=== PATIENT | male | born 1990 | race Caucasian/White ===

== ENCOUNTER → 2020-08-11 07:43 | Outpatient (CLI) | payer OTHER, SELFPAY ==
--- NOTE | ~2020-08-11 | MR_ITS ---
EXAMINATION: MR lumbar spine wo con DATE: 08/11/2020 08:20 INDICATION: Back pain radiating to both legs TECHNIQUE: Magnetic resonance imaging (MRI) of the lumbar spine was performed without intravenous con trast. Sequences included sagittal T2-weighted FSE, sagittal T2-weighted FS FSE, sagittal T1-weighted FSE, and axial T2-weighted FSE. COMPARISON: None FINDINGS: Alignment is normal. Vertebral body heights are normal. Normal marrow signal. Disc heights and signa l are normal. The conus medullaris terminates at T12. There is normal signal in the caudal spinal cor d. Paravertebral soft tissues are unremarkable. The following disc levels are specifically discussed: T12-L1: Disc is minimally bulging. There is mild bilateral facet joint osteoarthritis. There is no ne ural foraminal stenosis. There is no central canal stenosis. L1-L2: Disc is mildly bulging. There is no facet joint osteoarthritis. There is no neural foraminal s tenosis. There is no central canal stenosis. L2-L3: Disc is mildly bulging. There is mild bilateral facet joint osteoarthritis. There is no neural foraminal stenosis. There is no central canal stenosis. L3-L4: Disc is mildly bulging. There is mild left and minimal right facet joint osteoarthritis. There is mild bilateral neural foraminal stenosis. There is mild central canal stenosis. L4-L5: Disc is mildly bulging. There is mild bilateral facet joint osteoarthritis. There is mild bila teral neural foraminal stenosis. There is mild central canal stenosis. L5-S1: Disc is minimally bulging. There is mild bilateral facet joint osteoarthritis. There is mild b ilateral neural foraminal stenosis. There is no central canal stenosis. IMPRESSION: 1. No interval change in mild lumbar spondylosis. Reviewed, dictated and finalized at location A.
== END ==
DX: M99.03 Segmental and somatic dysfunction of lumbar region (principal)
CPT/HCPCS: 72148

== ENCOUNTER 2022-05-11 06:46 | Outpatient (CLI) | payer OTHER, SELFPAY ==
--- NOTE | ~2022-05-11 | MR_ITS ---
EXAMINATION: MR orbits face neck wo/w con DATE: 05/11/2022 08:17 INDICATION: Right eye visual disturbance. TECHNIQUE: Magnetic resonance imaging (MRI) of the orbits was performed without and with 13 mL MultiH ance intravenous contrast. COMPARISON: None. FINDINGS: There is no intracranial hemorrhage, acute infarction, or abnormal intracranial mass lesion . The ventricles are normal in size. The extraocular muscles and optic nerves are normal. The ocular globes are normal. The mastoid air cells are normal. There is mild mucosal thickening in the ethmoid sinuses. IMPRESSION: 1. Normal orbits and brain. Reviewed, dictated and finalized at location D. IMPRESSION: 1. Normal orbits and brain.
[2022-05-14 12:12] LABS: Estimated Glomerular Filt Rate > 60
== END 2022-05-11 06:47 | disposition home or self-care (01) ==
PROVIDERS: Visit Provider Ophthalmology
DX: H53.10 Unspecified subjective visual disturbances (principal)
CPT/HCPCS: 36415; 70543; 82565; A9577

== ENCOUNTER 2023-07-29 15:06 | Emergency (ER) | payer OTHER, SELFPAY ==
[2023-07-29] VITALS (8 sets, daily range): BP systolic 120–128; BP diastolic 89–95; PULSE 77–87; RESP 18–23; TEMP 36.8–37.1; O2SAT 96–98
--- NOTE | ~2023-07-29 | XR_ITS ---
Clinical Indication: Chest pain PA and lateral views of the chest: Comparison: 04/06/2019 Findings: The lungs are clear, without evidence of focal consolidation or pleural effusion. Cardiome diastinal silhouette is within normal limits. Bones and soft tissues are unremarkable. Impression: Normal chest. Reviewed, dictated and finalized at location . Impression: Normal chest.
--- NOTE | 2023-07-29 15:10 | ECG_ITS ---
Measurements Intervals [place] Rate: 90 P: 82 [place]: 104 QRS: 88 QRSD: 95 T: -64 QT: 344 QTc: 423 Interpretive Statements SINUS RHYTHM WITH SHORT [place] INTERVAL INCOMPLETE RIGHT BUNDLE BRANCH BLOCK ST-T WAVE ABNORMALITY IN INFERIOR LEADS- CONSIDER ISCHEMIA BASELINE ARTIFACT- II, AVR, V1 ABNORMAL ECG COMPARED TO ECG 04/06/2019 15:59:02 INCOMPLETE RIGHT BUNDLE-BRANCH BLOCK NOW PRESENT ST-T WAVE ABNORMALITY NOW PRESENT Electronically Signed On 07-29-2023 15:57:47 CDT by Germain Chandra D.O.
[2023-07-29] MEDS: ASPIRIN 81 MG CHEWABLE TABLET 324 MG PO (15:20)
--- NOTE | 2023-07-29 15:25 | ED.CHESTPAIN ---
HPI - Chest Pain General Chief Complaint: Chest Pain Stated Complaint: sob Time Seen by Provider: 07/29/23 15:18 Source: patient Mode of arrival: ambulatory Limitations: no limitations History of Present Illness HPI narrative: Marcello is a 32-year-old male patient presenting to the clinic today with complaints of chest pain and shortness of breath. He reports the burning/stabbing chest pain is to the right anterior chest. Pain currently 2/10. States that when he had the symptoms before he was diagnosed with pericarditis. Also reports that he feels as though he can not take a deep breath without discomfort. Denies any heavy lifting. Does report some GERD symptoms as well pain. Denies any URI symptoms of fever, or chills Related Data Allergies Allergy/AdvReac Type Severity Reaction Status Date / Time amoxicillin Allergy Unknown HIVES Verified 04/06/19 14:09 Review of Systems Review of Systems: Pertinent positives per HPI. Patient denies any fever, chills, rash, headache, visual changes, dizziness, cough, runny nose, sore throat, palpitations, nausea, vomiting, diarrhea, constipation, abdominal pain, or any urinary issues. PMFSH Comments At the time of my signature, I reviewed and agree with the nursing past medical, surgical, social, and family history. There is no relevant family history pertinent to the patient complaint. Exam Narrative: General: Well-developed, well nourished, in no apparent distress Head: Normocephalic, atraumatic. Chest wall: Even rise and fall of chest wall with respiratory, non tender to palpation over anterior chest, no bruising, swelling, or deformity. Cardio: Regular rate and rhythm, s1 and s2 normal, no murmur appreciated. Resp: Clear to auscultation bilaterally, no rhonchi, rales, wheezing or rubs. Extremities: No deformity, no edema, no cyanosis, capillary refill less than 2 seconds, peripheral pulses palpable and strong. Integumentary: [place], warm, and dry, intact without lesion, no rashes. Course Course Emergency Course: Portions of this record may have been created with voice recognition software. Vital Signs Vital signs: Vital Signs Temperature 36.8 C 07/29/23 15:12 Pulse Rate 86 07/29/23 15:12 Respiratory Rate 18 07/29/23 15:12 Blood Pressure 128/95 H 07/29/23 15:12 Pulse Oximetry 98 07/29/23 15:12 Oxygen Delivery Room Air 07/29/23 15:12 Temperature 36.8 C 07/29/23 15:12 Pulse Rate 86 07/29/23 15:16 Respiratory Rate 18 07/29/23 15:12 Blood Pressure 128/95 H 07/29/23 15:12 Pulse Oximetry 98 07/29/23 15:21 Oxygen Delivery Room Air 07/29/23 15:21 Vital signs reviewed MDM - Chest Pain MDM Narrative Medical decision making narrative: At the time of visit patient is resting on the exam stretcher. EKG shows heart rate 90 with short [place] interval and a incomplete right bundle branch block. Also has some inversion of T-waves. Chest x-ray was negative. I suspect patient has atypical chest pain/possible pericarditis. Will send in prescription for Medrol Dosepak and have the patient follow-up with his PCP this week for further evaluation if symptoms persist. Supportive measures were discussed with the patient he voiced understanding discharge instructions and agreed to the treatment plan. Differential Diagnosis Differential diagnosis: Likely pneumothorax, stable angina, unstable angina pectoris, atypical chest pain, st elevation myocardial infarction, costochondritis and chest pain Imaging Data Radiologist's impression: ITS Impressions Chest X-Ray 07/29/23 16:01 Impression: Normal chest. ECG Data EKG #1: Attestation: I personally reviewed and interpreted this ECG as follows: Interpretation: SINUS RHYTHM WITH SHORT [place] INTERVAL INCOMPLETE RIGHT BUNDLE BRANCH BLOCK ST-T WAVE ABNORMALITY IN INFERIOR LEADS- CONSIDER ISCHEMIA BASELINE ARTIFACT- II, AVR, V1 ABNORMAL ECG COMPARED TO ECG
[2023-07-29 15:32] LABS: Basophils Absolute Auto 0.1 K/mm3 (0.0-0.1); Basophils Percent Auto 1.5 % (0.2-1.2); Eosinophils Absolute Auto 0.2 K/mm3 (0-0.3); Hematocrit 46.8 % (42.0-52.0); Hemoglobin 15.9 g/dL (14.0-18.0); Immature Granulocyte Absolute 0.04 K/mm3 (0.00-0.031); Immature Granulocyte Percent A 0.5 % (0-0.5); Lymphocytes Absolute Auto 2.11 K/mm3 (0.9-3.2); Lymphocytes Percent Auto 28.4 % (18.3-44.2); Mean Corpuscular Volume 88.3 fl (80-100); Mean Platelet Volume 10.7 fl (7.4-10.4); Monocytes Absolute Auto 0.8 K/mm3 (0.1-0.6); Monocytes Percent Auto 10.5 % (2.6-8.5); Neutrophils Absolute Auto 4.3 K/mm3 (1.3-6.7); Neutrophils Percent Auto 57.1 % (45.5-73.1); Platelet Count Result 261 k/mm3 (150-375); Red Cell Distribution Width 11.8 % (11.5-14.5); White Blood Count 7.4 K/mm3 (4.5-10.0)
[2023-07-29 15:42] LABS: Alanine Aminotransferase 16 U/L (6-50); Albumin Level 4.8 g/dL (3.5-5.1); Alkaline Phosphatase 67 U/L (38-126); Anion Gap 10 mmol/L (8-16); Aspartate Amino Transferase 19 U/L (17-59); Bilirubin,Total 0.6 mg/dL (0.2-1.3); Blood Urea Nitrogen 12 mg/dL (9-20); Calcium 9.3 mg/dL (8.4-10.2); Carbon Dioxide 31 mmol/L (22-30); Chloride 101 mmol/L (98-107); Estimated CRCL calculation 87 ml/min; Estimated Glomerular Filt Rate > 60; Glucose 96 mg/dL (65-110); Lipase 79 U/L (23-300); Potassium 3.4 mmol/L (3.4-5.0); Sodium 142 mmol/L (137-145)
[2023-07-29 15:43] LABS: Partial Thromboplastin Time 27.3 SECONDS (22.3-36.8); Prothrombin Time 14.1 Seconds (11.1-14.7)
[2023-07-29 15:53] LABS: Troponin I < 0.012 ng/mL (0.000-0.034)
== END 2023-07-29 16:46 | disposition home or self-care (01) ==
PROVIDERS: Emergency Medicine; Emergency Provider Nurse Practitioner Family; PCP Nurse Practitioner Family
DX: R07.89 Other chest pain (principal); I45.10 Unspecified right bundle-branch block; Z86.79 Personal history of other diseases of the circulatory system
CPT/HCPCS: 36415; 71046; 80053; 83690; 84484; 85025; 85610; 85730; 93005; 99284; A9270

== ENCOUNTER 2024-02-25 10:49 | Outpatient (CLI) | payer OTHER, SELFPAY ==
--- NOTE | ~2024-02-25 | XR_ITS ---
Clinical Indication: Dyspnea PA and lateral views of the chest: Comparison: 07/29/2023 Findings: The lungs are clear, without evidence of focal consolidation or pleural effusion. Cardiome diastinal silhouette is within normal limits. Bones and soft tissues are unremarkable. Impression: Normal chest. Reviewed, dictated and finalized at location . Impression: Normal chest.
== END 2024-02-25 10:50 | disposition home or self-care (01) ==
PROVIDERS: PCP Nurse Practitioner Family; Visit Provider Nurse Practitioner Family
DX: R06.00 Dyspnea, unspecified (principal)
CPT/HCPCS: 71046

== ENCOUNTER 2024-12-25 12:39 | Emergency (ER) | payer OTHER, SELFPAY ==
--- NOTE | ~2024-12-25 | XR_ITS ---
EXAMINATION: XR chest 2V 12/25/2024 14:38 INDICATION: Left-sided chest pain PROCEDURE: 2 view chest COMPARISON: Comparison to multiple prior studies sequentially, with oldest reviewed study dated 06/23. FINDINGS: The lungs are clear. The cardiomediastinal silhouette is within normal limits. There are no pleural effusions. There is no pneumothorax suspected. IMPRESSION: 1: NO ACUTE CARDIOPULMONARY DISEASE. Reviewed, dictated and finalized at location A. ER DEVELOPMENT EXECUTIVE
--- NOTE | 2024-12-25 12:43 | ECG_ITS ---
Test Date: 2024-12-25 14:23:14 Measurements Intervals [place] Rate: 99 P: 73 [place]: 114 QRS: 86 QRSD: 89 T: -69 QT: 329 QTc: 422 Interpretive Statements SINUS RHYTHM WITH SHORT [place] INTERVAL POSSIBLE LEFT ATRIAL ENLARGEMENT [-0.1mV P WAVE IN V1/V2] INCOMPLETE RIGHT BUNDLE BRANCH BLOCK MODERATE T-WAVE ABNORMALITY, CONSIDER LATERAL ISCHEMIA [-0.1+ mV T WAVE IN I/aVL/V5/V6] MODERATE T-WAVE ABNORMALITY, CONSIDER INFERIOR ISCHEMIA [-0.1+ mV T WAVE IN II/aVF] No previous ECG available for comparison Electronically Signed On 12-25-2024 14:49:49 SHIPPING RECEIVING CLERK by Pete Draper M.D.
--- OUTSIDE RECORDS SUMMARY | 2024-12-25 12:44 | XMS_ITS | Referral Summary ---
Author Organization [facility] Address [address] [place] [address] Care Team Providers Care Pilot Name Role Phone Marlen Rico APRN-PROJECTOR OPERATOR Primary Care Provider [phone] [facility],non-owned Affiliates and Associated Physician Practices is amultiple site organization consisting of ambulatory clinics and hospital sitesin [place], [place], [place] and [place]. This disclosure is being madepursuant to the Care Everywhere program and may not contain all information available regarding this patient. Last updated 18.[facility] Allergies Active Allergy Reactions Criticality Noted Date Comments Amoxicillin Unknown 04/27/2019 Penicillins Unknown 08/27/2017 Medications * Be aware that medications may not be up to date on this document. Alwaysverify current medications with the patient. Medication Sig Dispensed Refills Start Date End Date Status omeprazole (PriLOSEC) 20 MG capsule Take 1 (one) capsule by mouth Active Active Problems Problem Noted Date Diagnosed Date Gastrointestinal hemorrhage 11/05/2014 Iron deficiency anemia due to chronic blood loss 10/24/2014 Social History Tobacco Use Types Packs/Day Years Used Date Smoking Tobacco: Never Smokeless Tobacco: Never Tobacco Cessation:Counseling Given: Not Answered Alcohol Use Standard Drinks/Week Comments No 0 (1 standard drink = 0.6 oz pur e alcohol) Sex and Gender Information Value Date Recorded Sex Assigned at Not on file Gender Identity Not on file Sexual Orientation Not on file Last Filed Vital Signs Vital Sign Reading Time Taken Comments Blood Pressure 122/87 04/27/2019 8:39 PM CDT Pulse 84 04/27/2019 8:39 PM CDT Temperature 37.2 ??C (99 ??F) 04/27/2019 8:39 PM CDT Respiratory Rate 18 04/27/2019 8:39 PM CDT Oxygen Saturation 99% 04/27/2019 8:39 PM CDT Inhaled Oxygen Concentration - - Weight 63.5 kg (140 lb) 04/27/2019 3:59 PM CDT Height 180.3 cm (5' 11 ) 04/27/2019 3:59 PM CDT Body Mass Index 19.53 04/27/2019 3:59 PM CDT Plan of Treatment Not on file Care Teams Pilot Relationship Specialty Start Date End Date Marlen Rico APRN-DOT [address] [place] [id number] PCP - General Nurse Practitioner Family 04/07/24
--- OUTSIDE RECORDS SUMMARY | 2024-12-25 12:44 | XMS_ITS | Patient Health Summary ---
Author Organization [facility] Address [address] [place] [address] Care Team Providers Care Case Finishing Machine Adjuster Name Role Phone Marlen Rico HATTIE-CRANE MAN Primary Care Provider [phone] Note from [facility],non-owned Affiliates and Associated Physician Practices is amultiple site organization consisting of ambulatory clinics and hospital sitesin [place], [place], [place] and [place]. This disclosure is being madepursuant to the Care Everywhere program and may not contain all information available regarding this patient. Last updated 18.[facility] [employer] Allergies * Amoxicillin(Unknown) * Penicillins(Unknown) Medications * Be aware that medications may not be up to date on this document. Alwaysverify current medications with the patient. * omeprazole (PriLOSEC) 20 MG capsule Take 1 (one) capsule by mouth Active Problems Problem Noted Date Diagnosed Date [...] Mass Index 19.53 04/27/2019 3:59 PM CDT Procedures * CARDIAC EKG ORDER(Performed 05/13/2019) * XR CHEST 2VW(Performed 04/27/2019) Performed for Chest pain, unspecified type * TROPONIN I(Performed 04/27/2019) * COMPREHENSIVE METABOLIC PANEL(Performed 04/27/2019) * CBC W AUTO DIFFERENTIAL(Performed 04/27/2019) * TROPONIN I(Performed 04/27/2019) * EKG 12-LEAD(Performed 04/27/2019) Performed for Chest pain, unspecified type * EVENT MONITOR(Performed 01/07/2015) * ECHO SMITA TRANSESOPHAGEAL(Performed 12/24/2014) * PROC ECHOCARDIOGRAM COMP W BUBBLE STUDY(Performed 12/07/2014) * EKG 12-LEAD(Performed 12/06/2014) * COMPREHENSIVE METABOLIC PANEL(Performed 11/13/2014) * PHOSPHORUS BLOOD(Performed 11/13/2014) * MAGNESIUM BLOOD(Performed 11/13/2014) * CBC W AUTO DIFFERENTIAL(Performed 11/13/2014) * CBC W AUTO DIFFERENTIAL(Performed 11/13/2014) * PHOSPHORUS BLOOD(Performed 11/12/2014) * MAGNESIUM BLOOD(Performed 11/12/2014) * COMPREHENSIVE METABOLIC PANEL(Performed 11/12/2014) * CBC W AUTO DIFFERENTIAL(Performed 11/12/2014) * CBC W AUTO DIFFERENTIAL(Performed 11/12/2014) * XR ABDOMEN KUB PORTABLE(Performed 11/10/2014) * T4 FREE(Performed 11/10/2014) * CBC W AUTO DIFFERENTIAL(Performed 11/10/2014) * RBC MORPHOLOGY(Performed 11/10/2014) * CBC W AUTO DIFFERENTIAL(Performed 11/10/2014) * TSH(Performed 11/10/2014) * PHOSPHORUS BLOOD(Performed 11/10/2014) * MAGNESIUM BLOOD(Performed 11/10/2014) * COMPREHENSIVE METABOLIC PANEL(Performed 11/10/2014) * RBC MORPHOLOGY(Performed 11/09/2014) * CBC W AUTO DIFFERENTIAL(Performed 11/09/2014) * PHOSPHORUS BLOOD(Performed 11/09/2014) * COMPREHENSIVE METABOLIC PANEL(Performed 11/09/2014) * MAGNESIUM BLOOD(Performed 11/09/2014) * CBC W AUTO DIFFERENTIAL(Performed 11/09/2014) * PATHOLOGY TISSUE(Performed 11/08/2014) * CBC W/O DIFFERENTIAL(Performed 11/08/2014) * PHOSPHORUS BLOOD(Performed 11/08/2014) * MAGNESIUM BLOOD(Performed 11/08/2014) * COMPREHENSIVE METABOLIC PANEL(Performed 11/08/2014) * CBC W AUTO DIFFERENTIAL(Performed 11/08/2014) * RBC MORPHOLOGY(Performed 11/08/2014) * CBC W AUTO DIFFERENTIAL(Performed 11/08/2014) * PT-INR [facility]H(Performed 11/08/2014) * PHOSPHORUS BLOOD(Performed 11/08/2014) * MAGNESIUM BLOOD(Performed 11/08/2014) * EKG 12-LEAD(Performed 11/08/2014) * TYPE + SCREEN PANEL(Performed 11/07/2014) * CROSSMATCH RBC LEUKOREDUCED(Performed 11/07/2014) * CROSSMATCH RBC LEUKOREDUCED(Performed 11/07/2014) * CBC W/O DIFFERENTIAL(Performed 11/07/2014) * RBC MORPHOLOGY(Performed 11/06/2014) * CBC W AUTO DIFFERENTIAL(Performed 11/06/2014) * CBC W AUTO DIFFERENTIAL(Performed 11/06/2014) * CBC W AUTO DIFFERENTIAL(Performed 11/06/2014) * CBC W AUTO DIFFERENTIAL(Performed 11/06/2014) * CBC W AUTO DIFFERENTIAL(Performed 11/06/2014) * RBC MORPHOLOGY(Performed 11/06/2014) * PT-INR [facility](Performed 11/06/2014) * PTT [facility](Performed 11/06/2014) * COMPREHENSIVE METABOLIC PANEL(Performed 11/06/2014) * CBC W AUTO DIFFERENTIAL(Performed 11/06/2014) * CBC W/O DIFFERENTIAL(Performed 11/05/2014) * CBC W/O DIFFERENTIAL(Performed 11/05/2014) * GLUCOSE ACCUCHECK(Performed 11/05/2014) * GLUCOSE ACCUCHECK(Performed 11/05/2014) * CBC W AUTO DIFFERENTIAL(Performed 11/05/2014) * CBC W AUTO DIFFERENTIAL(Performed 11/05/2014) * URINALYSIS W/MICROSCOPIC NO CULTURE(Performed 11/05/2014) * CULTURE URINE(Performed 11/05/2014) * CK + CKMB PANEL(Performed 11/05/2014) * TROPONIN I(Performed 11/05/2014) * LACTIC ACID BLOOD(Performed 11/05/2014) * COMPREHENSIVE METABOLIC PANEL(Performed 11/05/2014) * LIPASE BLOOD(Performed 11/05/2014) * PTT [facility](Performed 11/05/2014) * FIBRINOGEN ACTIVITY(Performed 11/05/2014) * PT-INR [facility](Performed 11/05/2014) * CBC W AUTO DIFFERENTIAL(Performed 11/05/2014) * CBC W AUTO DIFFERENTIAL(Performed 11/05/2014) * XR CHEST 1VW PORTABLE(Performed 11/05/2014) * XR ABDOMEN KUB PORTABLE(Performed 11/05/2014) * EKG 12-LEAD(Performed 11/05/2014) * CBC W AUTO DIFFERENTIAL(Performed 11/04/2014) * RBC MORPHOLOGY(Performed 11/04/2014) * CBC W AUTO DIFFERENTIAL(Performed 11/04/2014) * CROSSMATCH RBC LEUKOREDUCED(Performed 11/04/2014) * TYPE + SCREEN PANEL(Performed 11/04/2014) * CBC W AUTO DIFFERENTIAL(Performed 11/04/2014) * RBC MORPHOLOGY(Performed 11/04/2014) * COMPREHENSIVE METABOLIC PANEL(Performed 11/04/2014) * PT-INR [facility](Performed 11/04/2014) * CBC W AUTO DIFFERENTIAL(Performed 11/04/2014) * MAGNESIUM BLOOD(Performed 11/03/2014) * PHOSPHORUS BLOOD(Performed 11/03/2014) * BASIC METABOLIC PANEL (CALCIUM TOTAL)(Performed 11/03/2014) * CBC W AUTO DIFFERENTIAL(Performed 11/03/2014) * CBC W AUTO DIFFERENTIAL(Performed 11/03/2014) * CBC W AUTO DIFFERENTIAL(Performed 11/02/2014) * RBC MORPHOLOGY(Performed 11/02/2014) * CBC W AUTO DIFFERENTIAL(Performed 11/02/2014) * CT CHEST W CONTRAST(Performed 11/02/2014) * PATHOLOGY TISSUE(Performed 11/02/2014) * PHOSPHORUS BLOOD(Performed 11/02/2014) * MAGNESIUM BLOOD(Performed 11/02/2014) * COMPREHENSIVE METABOLIC PANEL(Performed 11/02/2014) * CBC W AUTO DIFFERENTIAL(Performed 11/02/2014) * CBC W AUTO DIFFERENTIAL(Performed 11/02/2014) * PT-INR [facility](Performed 11/02/2014) * TYPE + SCREEN PANEL(Performed 11/02/2014) * PHOSPHORUS BLOOD(Performed 10/31/2014) * MAGNESIUM BLOOD(Performed 10/31/2014) * BASIC METABOLIC PANEL (CALCIUM TOTAL)(Performed 10/31/2014) * CBC W AUTO DIFFERENTIAL(Performed 10/31/2014) * CBC W AUTO DIFFERENTIAL(Performed 10/31/2014) * BASIC METABOLIC PANEL (CALCIUM TOTAL)(Performed 10/30/2014) * CBC W AUTO DIFFERENTIAL(Performed 10/30/2014) * CBC W AUTO DIFFERENTIAL(Performed 10/30/2014) * CBC W/O DIFFERENTIAL(Performed 10/29/2014) * CBC W AUTO DIFFERENTIAL(Performed 10/29/2014) * CBC W AUTO DIFFERENTIAL(Performed 10/29/2014) * CBC W AUTO DIFFERENTIAL(Performed 10/28/2014) * CBC W AUTO DIFFERENTIAL(Performed 10/28/2014) * CT ABDOMEN PELVIS W CONTRAST(Performed 10/28/2014) * NM MECKELS SCAN(Performed 10/28/2014) * CBC W AUTO DIFFERENTIAL(Performed 10/28/2014) * CBC W AUTO DIFFERENTIAL(Performed 10/28/2014) * CBC W AUTO DIFFERENTIAL(Performed 10/27/2014) * CBC W AUTO DIFFERENTIAL(Performed 10/27/2014) * BASIC METABOLIC PANEL (CALCIUM TOTAL)(Performed 10/27/2014) * CROSSMATCH RBC LEUKOREDUCED(Performed 10/27/2014) * TYPE + SCREEN PANEL(Performed 10/27/2014) * CBC W AUTO DIFFERENTIAL(Performed 10/27/2014) * CBC W AUTO DIFFERENTIAL(Performed 10/27/2014) * BASIC METABOLIC PANEL (CALCIUM TOTAL)(Performed 10/26/2014) * CBC W AUTO DIFFERENTIAL(Performed 10/26/2014) * CBC W AUTO DIFFERENTIAL(Performed 10/26/2014) * XR CHEST 2VW(Performed 10/26/2014) * HEMATOCRIT(Performed 10/26/2014) * HEMOGLOBIN(Performed 10/26/2014) * CBC W AUTO DIFFERENTIAL(Performed 10/26/2014) * CBC W AUTO DIFFERENTIAL(Performed 10/26/2014) * COMPREHENSIVE METABOLIC PANEL(Performed 10/26/2014) * HEMOGLOBIN(Performed 10/26/2014) * HEMATOCRIT(Performed 10/26/2014) * EKG 12-LEAD(Performed 10/26/2014) * HEMOGLOBIN(Performed 10/25/2014) * HEMATOCRIT(Performed 10/25/2014) * HEMATOCRIT(Performed 10/25/2014) * HEMOGLOBIN(Performed 10/25/2014) * CBC W AUTO DIFFERENTIAL(Performed 10/25/2014) * CBC W AUTO DIFFERENTIAL(Performed 10/25/2014) * HEMOGLOBIN(Performed 10/25/2014) * HEMATOCRIT(Performed 10/25/2014) * FERRITIN(Performed 10/24/2014) * TRANSFERRIN(Performed 10/24/2014) * IRON BLOOD(Performed 10/24/2014) * HEMATOCRIT(Performed 10/24/2014) * HEMOGLOBIN(Performed 10/24/2014) * FOLATE(Performed 10/24/2014) * VITAMIN B12(Performed 10/24/2014) * COMPREHENSIVE METABOLIC PANEL(Performed 10/24/2014) * HEMATOCRIT(Performed 10/24/2014) * HEMOGLOBIN(Performed 10/24/2014) * RETIC COUNT(Performed 10/24/2014) * HAPTOGLOBIN(Performed 10/24/2014) * HEPATIC FUNCTION PANEL(Performed 10/24/2014) * LDH BLOOD(Performed 10/24/2014) * PTT [facility](Performed 10/24/2014) * PT-INR [facility](Performed 10/24/2014) * HEMATOCRIT(Performed 10/24/2014) * HEMOGLOBIN(Performed 10/24/2014) * TYPE + SCREEN PANEL(Performed 10/23/2014) * CROSSMATCH RBC LEUKOREDUCED(Performed 10/23/2014) * CROSSMATCH RBC LEUKOREDUCED(Performed 10/23/2014) * BASIC METABOLIC PANEL (CALCIUM TOTAL)(Performed 10/23/2014) * CBC W AUTO DIFFERENTIAL(Performed 10/23/2014) * CBC W AUTO DIFFERENTIAL(Performed 10/23/2014) Results * CARDIAC EKG ORDER (05/13/2019 8:11 AM CDT) Narrative 05/13/2019 8:11 AM CDT Ordered by an unspecified provider. Scanned Document CARDIAC SERVICES ORD ERABLES * XR CHEST 2VW (04/27/2019 10:46 PM CDT) Only the most recent of2 resultswithin the time period is included. Anatomical Region Laterality Modality Chest Radiographic Maura ging 04/27/2019 11:3 6 PM CDT Impressions 04/28/2019 10:00 AM CDT Impression: No acute pulmonary process. This report has been dictated by Yefri Begum M.D. (Resident). Dr. Carmen Monroe M.D. have personally reviewed and interpreted this examination/study. This report was electronically signed by Carmen STARK M.D. ??on 04/28/2019 10:00 AM . Narrative 04/28/2019 10:00 AM CDT Exam: XR CHEST 2VW. Date: 04/27/2019 10:56 PM. History: chest pain. Comparison: Chest radiograph dated 11/05/2014. Findings: There is no focal consolidation, pleural effusion or pneumothorax. The cardiomediastinal silhouette is normal. The visible bony thorax is intact. Procedure Note Urszula Stark MD - 04/28/2019 Exam: XR CHEST 2VW. Date: 04/27/2019 10:56 PM. History: chest pain. Comparison: Chest radiograph dated 11/05/2014. Findings: There is no focal consolidation, pleural effusion or pneumothorax. The cardiomediastinal silhouette is normal. The visible bony thorax isintact. Impression: No acute pulmonary process. This report has been dictated by Yefri Begum M.D. (Resident). Dr. Carmen Monroe M.D. have personally reviewed and interpretedthis examination/study. This report was electronically signed by Carmen STARK M.D. on 04/28/2019 10:00 AM . [facility] ORDERAB[facility] * TROPONIN I (04/27/2019 9:21 PM CDT) Only the most recent of3 resultswithin the time period is included. Troponin I <0.010 <0.032 ng/mL 04/27/2019 9:49 PM CDT [facility] Blood BLOOD SPECIMEN / Unknown Venipuncture / Unknown 04/27/2019 9:21 PM CDT 04/27/2019 9:23 PM CDT Yokasta Ruggiero MD LAB - CHEMISTRY JARRED HOOPER [facility] Organization Address City/State/ZIP Co de Phone Number [address] [phone] * (ABNORMAL) CBC W AUTO DIFFERENTIAL (04/27/2019 4:15 PM CDT) Only the most recent of53 resultswithin the time period is included. WBC 8.2 3.5 - 10.5 10? 3 /uL 04/27/2019 4:21 PM [facility] RBC 5.25 4.30 - 5.70 10? 6 /uL 04/27/2019 4:21 PM [facility] Hemoglobin 15.6 13.5 - 17.5 g/dL 04/27/2019 4:21 PM [facility] Hematocrit 45.8 39.0 - 50.0 % 04/27/2019 4:21 PM [facility] MCV 87.2 81.0 - 97.0 fL 04/27/2019 4:21 PM [facility] MCH 29.7 28.0 - 34.0 pg 04/27/2019 4:21 PM [facility] MCHC 34.1 32.0 - 36.0 g/dL 04/27/2019 4:21 PM [facility] Platelet Count 255 150 - 400 10? 3 /uL 04/27/2019 4:21 PM [facility] RDW-SD 39.0 36.0 - 50.0 fL 04/27/2019 4:21 PM [facility] RDW-CV 12.0 11.2 - 14.8 % 04/27/2019 4:21 PM [facility] MPV 10.1 9.3 - 12.8 fL 04/27/2019 4:21 PM [facility] nRBC Absolute 0.00 0 10? 3 /uL 04/27/2019 4:21 PM [facility] nRBC Auto 0.0 0 /100 WBC 04/27/2019 4:21 PM [facility] Neutrophils % 72.8(H) 35.0 - 70.0 % 04/27/2019 4:21 PM [facility] Lymphocytes % 17.2(L) 19.7 - 55.1 % 04/27/2019 4:21 PM CDT [facility] Monocytes % 7.9 3.0 - 15.0 % 04/27/2019 4:21 PM T [facility] Eosinophils % 0.9 0.0 - 6.0 % 04/27/2019 4:21 PM [facility] Basophil % 1.0 0.0 - 1.5 % 04/27/2019 4:21 PM [facility] Neutrophils Absolute 6.0 1.6 - 7.0 10? 3 /uL 04/27/2019 4:21 PM T [facility] Lymphocyte Absolute 1.4 0.8 - 2.9 10? 3 /uL 04/27/2019 4:21 PM T [facility] Monocytes Absolute 0.65 0.14 - 0.66 10? 3 /uL 04/27/2019 4:21 PM [facility] Eosinophils Absolute 0.07 0.00 - 0.45 10? 3 /uL 04/27/2019 4:21 PM [facility] Basophils Absolute 0.08(H) 0.00 - 0.06 10? 3 /uL 04/27/2019 4:21 PM [facility] Immature Granulocytes % 0.2 0.0 - 1.0 % 04/27/2019 4:21 PM [facility] Blood BLOOD SPECIMEN / Unknown Venipuncture / Unknown 04/27/2019 4:15 PM CDT 04/27/2019 4:18 PM CDT Yokasta Ruggiero MD LAB - HEMATOLOGY ORD ERABLES [facility] [address] [phone] * COMPREHENSIVE METABOLIC PANEL (04/27/2019 4:15 PM CDT) Only the most recent of12 resultswithin the time period is included. BUN 11 7 - 26 mg/dL 04/27/2019 4:48 PM T [facility] Creatinine 1.0 0.6 - 1.2 mg/dL 04/27/2019 4:48 PM [facility] Sodium 141 136 - 145 mmol/L 04/27/2019 4:48 PM [facility] Potassium 3.8 3.5 - 4.5 mmol/L 04/27/2019 4:48 PM [facility] Chloride 106 98 - 107 mmol/L 04/27/2019 4:48 PM [facility] CO2 28 22 - 29 mmol/L 04/27/2019 4:48 PM [facility] Glucose 109 70 - 115 mg/dL 04/27/2019 4:48 PM [facility] Calcium 9.8 8.4 - 10.2 mg/dL 04/27/2019 4:48 PM [facility] Protein Total 7.6 6.0 - 8.3 g/dL 04/27/2019 4:48 PM [facility] Albumin 4.4 3.4 - 5.0 g/dL 04/27/2019 4:48 PM [facility] Bilirubin Total 0.5 0.2 - 1.2 mg/dL 04/27/2019 4:48 PM [facility] Alkaline Phosphatase 70 40 - 150 Units/L 04/27/2019 4:48 PM [facility] ALT 13 0 - 55 Units/L 04/27/2019 4:48 PM [facility] AST 12 5 - 34 Units/L 04/27/2019 4:48 PM [facility] Anion Gap 11 8 - 18 04/27/2019 4:48 PM [facility] BUN/Creatinine Ratio 11 7 - 23 04/27/2019 4:48 PM [facility] Osmolality Calculated 292 270 - 300 mOsm/kg 04/27/2019 4:48 PM [facility] Albumin/Globulin Ratio 1.4 1.1 - 2.3 04/27/2019 4:48 PM [facility] eGFR >60 >60 mL/min/1.7 3 m2 04/27/2019 4:48 PM [facility] Blood BLOOD SPECIMEN / Unknown Venipuncture / Unknown 04/27/2019 4:15 PM CDT 04/27/2019 4:18 PM [facility] Yokasta Ruggiero MD LAB - CHEMISTRY JARRED HOOPER [facility] Organization Address City/State/ZIP Co de Phone Number [facility] [address] [phone] * EKG 12-LEAD (04/27/2019 4:03 PM CDT) Only the most recent of5 resultswithin the time period is included. Ventricular Rate 89 BPM [facility] Atrial Rate 89 BPM [facility] P-R Interval 100 ms [facility] QRS Duration ms 88 ms [facility] Q-T Interval ms 340 ms [facility] QTC Calculation (Bezet) 413 ms [facility] Calculated P [place] 89 degrees [facility] Calculated R [place] 88 degrees [facility] Calculated T [place] -7 degrees [facility] Interpretation EKG SINUS RHYTHM WITH SHORT ND RSR' OR QR PATTERN IN V1 SUGGESTS RIGHT VENTRICULAR CONDUCTION DELAY T WAVE ABNORMALITY, CONSIDER INFERIOR ISCHEMIA ABNORMAL ECG NO PREVIOUS ECGS AVAILABLE Confirmed by Gema Reardon, Kendy ([id number]), online editor Adryan Moore ([id number]) on 05/05/2019 10:31:10 PM [facility] 04/27/2019 4:03 PM CDT 05/05/2019 10:31 PM CDT Yokasta Ruggiero MD ECG ORDERABLES [facility] * EVENT MONITOR (01/07/2015 9:27 AM [employer] S[employer]ER [employer] FINISHER) Narrative [facility] - 01/07/2015 9:27 AM [employer] SANDER AND FINISHER Marcello Wyattd underwent cardiac monitoring with a 30 day event monitor. ??Results are as follows: Quality of Tracings: ??Fair, some baseline artifact present. Rhythm: ??Sinus, junctional. Ectopy: ??Occasional APCs and PVCs Symptoms: ??Skipped a beat (multiple transmissions), which correlated with sinus rhythm, junctional rhythm, sinus rhythm with PVC, and sinus rhythm with APC, rates 64-110 beats per minute. Please feel free to contact me with any questions, thank you. Procedure Note ProviderSantiago MD - 05/02/2018 Marcello Friedman Tigre underwent cardiac monitoring with a 30 day event monitor.Results are as follows: Quality of Tracings: Fair, some baseline artifact present. Rhythm: Sinus, junctional. Ectopy: Occasional APCs and PVCs Symptoms: Skipped a beat (multiple transmissions), which correlated withsinus rhythm, junctional rhythm, sinus rhythm with PVC, and sinus rhythmwith APC, rates 64-110 beats per minute. Please feel free to contact me with any questions, thank you. Bruce High CD CARDIAC SERVICES ORD ERABLES [facility] * ECHO SMITA TRANSESOPHAGEAL (12/24/2014 12:00 AM [employer] FINISHER) Anatomical Region Laterality Modality Other 12/24/2014 Owen Thomason MD ECHOCARDIOGRAPHY RAD IANT * PROC ECHOCARDIOGRAM COMP W BUBBLE STUDY (12/07/2014 2:09 PM [employer] FINISHER) Narrative [facility] - 12/07/2014 2:09 PM [employer] FINISHER NAME: Marcello Landeros : 1990 AGE: 24 y.o. SEX: male Referring Physician: Owen Thomason MD [address] [facility] [address] [place] [address] Ordering Physician: Dr. Thomason Primary Care Physician: Garfield Chowdhury Date of Test: 12/06/14 TAPE#: ?? Blind Aide: JADE Height: 5' 11 (180.3 cm) Weight: 130 lb (58.968 kg) BSA: ?? Introduction: Marcello Landeros is a 24 y.o. male presenting with chest pain. Indication: Chest Pain Chamber Measurements LV Internal Dimension Systole (cm): 3.2 cm LV Internal Dimension Diastole (cm): 4.6 cm Septal Thickness (cm): 0.9 cm Posterior Wall Thickness (cm): 0.9 cm LV Systolic Function: Normal Aortic Root Measurement (cm): 3 cm Left Atrium Measurement (cm): 2.1 cm Right Atrial Size: Normal RV Size: Normal Global RV function: Normal Aortic Valve AV Max (m/s): 1.1 m/s LVOT Diameter (cm): 2.1 cm LVOT max (m/s): 0.9 m/s Normal Aortic Valve Velocities: Yes Mitral Valve Mitral Valve Velocities: ? E (m/s): 0.8 m/s ? A (m/s): 0.4 m/s ? Tissue Doppler Velocities: ? Diastolic Function: Normal Tricuspid Valve Max Tricuspid Valve Velocity (m/s): 0.8 m/s Normal Tricuspid Valve Velocities: Yes Pulmonic Valve Max Pulmonic Valve Velocity (m/s): 1.1 m/s Normal Pulmonic Valve Velocities: Yes OVERALL INTERPRETATION: - Technically Good echocardiogram. - Normal LV size and systolic function. ??Ejection fraction = 55%. - Normal RV size and systolic function. - Normal left atrium. - Normal right atrium. - Injection of agitated saline contrast revealed ??evidence of a right to left ??intracardiac shunt. - Normal aortic valve structure and velocities. ??No aortic regurgitation. - Normal mitral valve structure and velocities. ??Mild mitral regurgitation. - Normal LV diastolic function. ?? - Normal tricuspid valve structure and velocities. ?? No tricuspid regurgitation. - Inadequate tricuspid regurgitation to assess right ventricular systolic pressure. - Normal pulmonary valve structure and velocities. ??Mild pulmonic regurgitation. Supervising Physician: Reading Physician: Bettye Caballero MD Procedure Note Provider, MD Santiago - 05/02/2018 NAME: Marcello Landeros : 1990 AGE: 24 y.o. SEX: male Referring Physician: Owen Thomason MD [address] [place] [address] Ordering Physician: Dr. Thomason Primary Care Physician: Garfield Chowdhury Date of Test: 12/06/14 TAPE#: Blind Aide: JADE Height: 5' 11 (180.3 cm) Weight: 130 lb (58.968 kg) BSA: Introduction: Marcello Landeros is a 24 y.o. male presenting with chest pain. Indication: Chest Pain Chamber Measurements LV Internal Dimension Systole (cm): 3.2 cm LV Internal Dimension Diastole (cm): 4.6 cm Septal Thickness (cm): 0.9 cm Posterior Wall Thickness (cm): 0.9 cm LV Systolic Function: Normal Aortic Root Measurement (cm): 3 cm Left Atrium Measurement (cm): 2.1 cm Right Atrial Size: Normal RV Size: Normal Global RV function: Normal Aortic Valve AV Max (m/s): 1.1 m/s LVOT Diameter (cm): 2.1 cm LVOT max (m/s): 0.9 m/s Normal Aortic Valve Velocities: Yes Mitral Valve Mitral Valve Velocities: E (m/s): 0.8 m/s A (m/s): 0.4 m/s Tissue Doppler Velocities: Diastolic Function: Normal Tricuspid Valve Max Tricuspid Valve Velocity (m/s): 0.8 m/s Normal Tricuspid ValveVelocities: Yes Pulmonic Valve Max Pulmonic Valve Velocity (m/s): 1.1 m/s Normal Pulmonic ValveVelocities: Yes OVERALL INTERPRETATION: - Technically Good echocardiogram. - Normal LV size and systolic function. Ejection fraction = 55%. - Normal RV size and systolic function. - Normal left atrium. - Normal right atrium. - Injection of agitated saline contrast revealed evidence of a right toleft intracardiac shunt. - Normal aortic valve structure and velocities. No aorticregurgitation. - Normal mitral valve structure and velocities. Mild mitralregurgitation. - Normal LV diastolic function. - Normal tricuspid valve structure and velocities. No tricuspidregurgitation. - Inadequate tricuspid regurgitation to assess right ventricular systolicpressure. - Normal pulmonary valve structure and velocities. Mild pulmonicregurgitation. Supervising Physician: Reading Physician: Bettye Caballero MD Owen Thomason MD ECG ORDERABLES Performing Organization Address City/[facility] Co de Phone Number [facility] * PHOSPHORUS BLOOD (11/13/2014 5:10 AM [employer]ER [employer] FINISHER) Only the most recent of9 resultswithin the time period is included. Phosphorus 3.2 2.3 - 4.7 mg/dL [facility] Blood specimen (specimen) BLOOD SPECIMEN / Unknown 11/13/2014 5:10 AM [employer]ER AND FINISHER 11/13/2014 5:54 AM [employer]ER [employer] FINISHER Neli Goff MD LAB - CHEMISTRY JARRED HOOPER Performing Organization Address City/[facility]/ZIP Co de Phone Number [address] [phone] * MAGNESIUM BLOOD (11/13/2014 5:10 AM [employer]ER AND FINISHER) Only the most recent of9 resultswithin the time period is included. Magnesium 1.8 1.6 - 2.6 mg/dL [facility] Blood specimen (specimen) BLOOD SPECIMEN / Unknown 11/13/2014 5:10 AM [employer]ER AND FINISHER 11/13/2014 5:54 AM [employer] S[employer]ER AND FINISHER Neli Goff MD LAB - CHEMISTRY JARRED HOOPER [address] [phone] * XR ABDOMEN KUB PORTABLE (11/10/2014 5:37 PM [employer] FINISHER) Only the most recent of2 resultswithin the time period is included. Anatomical Region Laterality Modality Other Impressions 11/12/2014 8:41 AM [employer]ER AND FINISHER Impression: Free air, likely secondary to recent abdominal procedure. Multiple dilated loops of small bowel, differential diagnosis in the setting is ileus versus bowel obstruction. Preliminary findings were discussed with the patient's nurse by Dr. Simons on 11/11/2014 at 6:20 PM. Dictated by Tristen Simons M.D. (vice president sales) This report was approved ??by Tristen Simons ?? on 11/12/2014 7:56 AM . I, Dr. LBUNA IVY M.D. have personally reviewed and interpreted this examination/study. This report was electronically signed by LUBNA IVY M.D. ??on 11/12/2014 8:41 AM . Narrative 11/12/2014 8:41 AM [employer] S[employer]ER AND FINISHER Exam: Portable supine Abdominal X-ray, 2 view Date: 11/10/2014 5:37 PM History: Abdominal pain Comparison: 11/05/2014 at 4:44 AM Findings: A linear metallic body is superimposed on the right side of the abdomen. The two linear metallic bodies seen superimposed on the mid pelvis in the previous exam are not visualized. Plover are seen overlying the right lower abdomen. The small bowel lumen adler are well visualized and a linear area of lucency is seen adjacent to the liver representing free air. There are multiple dilated loops of small bowel. ??No pathological calcifications are seen. The osseous structures are intact. The lung bases are normal. Procedure Note Lubna Ivy MD - 02/22/2018 Exam: Portable supine Abdominal X-ray, 2 view Date: 11/10/2014 5:37 PM History: Abdominal pain Comparison: 11/05/2014 at 4:44 AM Findings: A linear metallic body is superimposed on the right side of the abdomen.The two linear metallic bodies seen superimposed on the mid pelvis in theprevious exam are not visualized. Ned are seen overlying the rightlower abdomen. The small bowel lumen adler are well visualized and a linear area oflucency is seen adjacent to the liver representing free air. There aremultiple dilated loops of small bowel. No pathological calcifications areseen. The osseous structures are intact. The lung bases are normal. IMPRESSION Impression: Free air, likely secondary to recent abdominal procedure. Multiple dilated loops of small bowel, differential diagnosis in thesetting is ileus versus bowel obstruction. Preliminary findings were discussed with the patient's nurse by Dr. Gallagher 11/11/2014 at 6:20 PM. Dictated by Tristen Simons M.D. (vice president sales) This report was approved by Tristen Simons on 11/12/2014 7:56 AM . I, Dr. LUBNA IVY M.D. have personally reviewed and interpreted thisexamination/study. This report was electronically signed by LUBNA IVY M.D. on 11/12/20148:41 AM . Neli Goff MD DIAGNOSTIC IMAGING O RDERABLES * (ABNORMAL) RBC MORPHOLOGY (11/10/2014 5:02 AM [employer] S[employer]ER [employer] FINISHER) Only the most recent of8 resultswithin the time period is included. Anisocytosis 1+(A) None [facility] Ovalocytes 1+(A) None [facility] Tear Drop Cells Rare(A) None [facility] Blood specimen (specimen) BLOOD SPECIMEN / Unknown 11/10/2014 5:02 AM [employer] FINISH[employer] 11/10/2014 6:47 AM [employer] FINISHER Neli Goff MD LAB - HEMATOLOGY ORD ERABLES [address] [phone] * TSH (11/10/2014 5:02 AM [employer] S[employer] FINISHER) TSH 2.997 0.350 - 4.940 uIU/mL [facility] Blood specimen (specimen) BLOOD SPECIMEN / Unknown 11/10/2014 5:02 AM [employer] FINISHER 11/10/2014 5:52 AM [employer] S[employer] FINISHER Neli Goff MD LAB - CHEMISTRY JARRED HOOPER Performing Organization Address City/[facility]/ZIP Co de Phone Number [address] [phone] * T4 FREE (11/10/2014 5:02 AM [employer] S[employer]ER [employer] FINISHER) T4 Free 1.3 0.7 - 1.5 ng/dL [facility] Blood specimen (specimen) BLOOD SPECIMEN / Unknown 11/10/2014 5:02 AM [employer]ER [employer] FINISHER 11/10/2014 5:52 AM [employer] S[employer] FINISHER Neli Goff MD LAB - CHEMISTRY JARRED HOOPER Performing Organization Address City/[facility] Co de Phone Number [address] [phone] * PATHOLOGY TISSUE (11/08/2014 5:53 PM [employer] FINISHER) Only the most recent of2 resultswithin the time period is included. Surgical Pathology Tissue CLINICAL HISTORY: No clinical history provided on accompanying specimen requisition. FINAL DIAGNOSIS: SMALL BOWEL, SEGMENTAL RESECTION: - BENIGN HEMANGIOMA (0.8 CM) WITH ULCERATION AND ACUTE INFLAMMATION - NO DYSPLASIA OR MALIGNANCY IDENTIFIED - MARGIN UNREMARKABLE GROSS DESCRIPTION: The specimen ??is small bowel stitch ??marked proximal , labelled with the patient's name Marcello Landeros consists of a segment of bowel measuring 13.0 x 5.0 x 0.3 cm, with attached mesenteric fat measuring 2.0 cm. ??There is a central area of indurated necrosis which is circumscribed, measuring 0.8 x 0.6 x 0.1 cm. ??The proximal margin of the segment contains a stitch. ??The proximal margin is submitted in cassette A1 and the distal margin is submitted in cassette A2. ??The stapled area including the stitch has been removed from the proximal margin. There is a black indurated, necrosed area which measures 9.5 cm to the proximal margin and 10.0 cm to the distal margin. ??Sections of the black indurated area are submitted in cassettes A3 and A4. There is a cystic area measuring 1.2x0.8 cm, 4.0 cm from the distal margin and 13.0 cm from the proximal margin. The cystic area is serially sectioned and submitted in cassettes A5 and A6. MN/edk MICROSCOPIC DESCRIPTION: Sections of A3 and A4 show superficial ulceration with underlying dilated irregular vascular spaces. The lining endothelial cells are cytologic bland. Proximal and distal margins are unremarkable. No viral inclusions or organisms are identified (CMV, GMS and AFB stains are negative). Sections from A5 and A6 show procedure artifact. No lining cells are identified. JL The performance characteristics of all immunohistochemical and indirect immunofluorescence stains (if any) cited in this report were determined by the Histopathology Laboratory of [facility].?? Some of these tests were developed by our own laboratory and have not been cleared or approved by the US Food and Drug Administration.?The FDA does not require this test to go through premarket FDA review.?These tests are used for clinical purposes. They should not be regarded as investigational or for research.?? This laboratory is certified under the Clinical Laboratory Improvement Amendments (CLIA) as qualified to perform high complexity clinical laboratory testing. This case has been personally reviewed and interpreted by the attending (teaching) pathologist. Final Diagnosis performed by Ashely Gao MD. Electronically signed 11/16/2014 [facility]) Other (qualifier value) 11/08/2014 5:53 PM [employer] FINISH[employer] 11/09/2014 7:49 AM [employer] SANDER AND FINISHER Narrative [facility] ([place]) - 11/16/2014 2:57 PM [employer] FINISH[employer] Collection Date->11/08/14 Collection Time-> 5:53 PM Specimen A->Small Bowel, NOS Small bowel stich marked proximal, perm path Neli Goff MD LAB - PATHOLOGY/CYTO LOGY ORDERABLES [facility] ([place]) * (ABNORMAL) CBC W/O DIFFERENTIAL (11/08/2014 1:33 PM [employer] FINISHER) Only the most recent of5 resultswithin the time period is included. WBC 4.2 3.5 - 10.5 10? 3 /uL [facility] RBC 3.71(L) 4.30 - 5.70 10? 6 /uL [facility] Comment:All CBC parameters h ave been checked. Hemoglobin 10.9(L) 13.5 - 17.5 g/dL [facility] Hematocrit 33.2(L) 39.0 - 50.0 % [facility] MCV 89.5 81.0 - 97.0 fL [facility] MCH 29.4 28.0 - 34.0 pg [facility] MCHC 32.8 32.0 - 36.0 g/dL [facility] Platelet Count 311 150 - 400 10? 3 /uL [facility] Comment: Platelet count verified by slide exam This is an appended report. ??These results have been appended to a previously preliminary verified report. RDW-SD 54.7(H) 36.0 - 50.0 fL [facility] RDW-CV 16.8(H) 11.2 - 14.8 % [facility] MPV 10.1 9.3 - 12.8 fL [facility] nRBC Absolute 0.00 0 10? 3 /uL [facility] nRBC Auto 0.0 0 /100 WBC [facility] Blood specimen (specimen) BLOOD SPECIMEN / Unknown 11/08/2014 1:33 PM [employer] FINISHER 11/08/2014 1:35 PM [employer]ER Isabela Leyva MD LAB - HEMATOLOGY ORD ERABLES [facility] [address] [phone] * (ABNORMAL) PT-INR [facility] (11/08/2014 5:55 AM [employer] S[employer] FINISHER) Only the most recent of6 resultswithin the time period is included. PT 17.1(H) 12.1 - 14.8 Seconds [facility] INR 1.4 See Comment [facility] Comment: Suggested therapeutic range for low-intensity coumadin therapy for venous thromboembolism prophylaxis is an INR of 2.0-3.0. ??For high risk patients (Mitral Valve Prosthesis, Atrial Fibrillation, history of TIA/stroke), suggested prophylactic therapeutic range is an INR of 2.5-3.5. Blood specimen (specimen) BLOOD SPECIMEN / Unknown 11/08/2014 5:55 AM [employer] FINISHER 11/08/2014 6:37 AM [employer] S[employer]ER [employer] FINISHER Narrative [facility] - 11/08/2014 7:04 AM [employer] S[employer]ER [employer] FINISHER Is patient on Heparin, Argatroban or Dabigatran?->N Alvin Helm MD LAB - COAGULATI ON ORDERABLES [address] [phone] * CROSSMATCH RBC LEUKOREDUCED (11/07/2014 8:51 PM [employer] S[employer]ER [employer] FINISHER) Only the most recent of6 resultswithin the time period is included. Unit RBC-WBCD [id number] transfused [facility] (BEAKER) Unit ABO O [facility] ([facility]) Unit Rh POS [facility] ([facility]AKER) Unit Number [id number] [facility] ([facility]AKER) Unit Status Transfused [facility] (BEAKER) Unit RBC-WBCD [id number] transfused [facility] (BEAKER) Unit ABO O [facility] (BEAKER) Unit Rh POS [facility] (BEAKER) Unit Number [id number] [facility] (BEAKER) Unit Status Transfused [facility] BLO OD [facility]ANK PRODUCTS (BEAKER) 11/07/2014 8:51 PM [employer]ER [employer] FINISHER 11/07/2014 10:07 PM [employer] S[employer]ER AND FINISHER Narrative [facility] ([facility]) - 11/07/2014 8:51 PM [employer] S[employer]ER [employer] FINISHER # of Units->2 Alvin Helm MD LAB - BLOOD BAN K ORDERABLES [facility] ([facility]) * TYPE + SCREEN PANEL (11/07/2014 8:51 PM [employer] S[employer]ER [employer] FINISHER) Only the most recent of5 resultswithin the time period is included. Typem O POS [facility] Antibody Screen NEG [facility] Blood specimen (specimen) 11/07/2014 8:51 PM [employer] FINISHER 11/07/2014 10:07 PM [employer] S[employer]ER [employer] FINISHER Mario Yusuf MD LAB - BLOOD BANK ORD ERABLES Performing Organization Address [facility] Co de Phone Number [facility] [address] [place] [address] * PTT SLU (11/06/2014 3:49 AM [employer] S[employer]ER AND FINISHER) Only the most recent of3 resultswithin the time period is included. APTT 29.9 23.0 - 38.4 Seconds [facility] Comment:Suggested therapeuti c range for full dose I.V. heparin therapy for venous thromboembolism is 66.0-91.0 seconds. Blood specimen (specimen) BLOOD SPECIMEN / Unknown 11/06/2014 3:49 AM [employer]ER [employer] FINISHER 11/06/2014 3:49 AM [employer] SANDER AND FINISHER Narrative [facility] - 11/06/2014 4:15 AM [employer] SANDER AND FINISHER Is patient on Heparin, Argatroban or Dabigatran?->N Alvin Helm MD LAB - COAGULATI ON ORDERABLES Performing Organization Address [facility] Co de Phone Number [address] [phone] * GLUCOSE ACCUCHECK (11/05/2014 6:48 AM [employer] SANDER [employer] FINISHER) Only the most recent of2 resultswithin the time period is included. Glucose, Fingerstick 92 70-115mg/d L mg/dL [facility] (BEAKER) Comment:Farm Service Adviser: LUIS MARTÍNEZ 11/05/2014 6:48 AM [employer] SANDER AND FINISHER Alvin Helm MD LAB - CHEMISTRY ORDERABLES [facility] ([place]) * URINALYSIS W/MICROSCOPIC NO CULTURE (11/05/2014 6:42 AM [employer] SANDER AND FINISHER) Color UA Yellow Straw, Yellow, Colorless, Light Yellow [facility] Clarity UA Clear Clear [facility] Specific Prole UA 1.016 1.001 - 1.030 [facility] pH UA 5.5 5.0 - 8.0 [facility] Protein UA Negative <=20 mg/dL [facility] Glucose UA Negative Negative mg/dL [facility] Ketone UA Negative Negative mg/dL [facility] Bilirubin UA Negative Negative mg/dL [facility] Blood UA Negative Negative [facility] Nitrite UA Negative Negative [facility] Leukocyte Esterase Negative Negative [facility] Urobilinogen UA <2.0 <2.0 mg/dL [facility] RBC UA <1 0 - 8 /HPF [facility] WBC UA 1 0 - 2 /HPF [facility] Urine specimen (specimen) 11/05/2014 6:42 AM [employer] S[employer]ER AND FINISHER 11/05/2014 7:02 AM [employer] SANDER AND FINISHER Alvin Helm MD LAB - URINALYSI S ORDERABLES Performing Organization Address [facility]/ZIP Co de Phone Number [address] [phone] * CULTURE URINE (11/05/2014 6:42 AM [employer] S[employer]ER [employer] FINISHER) Culture Urine Less than 10,000 CFU/ML of Normal Urogenital/ Skin Mely [facility] Comment:. Urine specimen (specimen) URINE SPECIMEN OBTAINED BY CLEAN CATCH PROCEDURE / Unknown 11/05/2014 6:42 AM [employer] S[employer]ER [employer] FINISHER 11/05/2014 7:02 AM [employer]NE[employer] SANDER AND FINISHER Narrative [facility] - 11/07/2014 12:20 PM [employer] S[employer] FINISHER Specimen Type->Urine Alvin Helm MD LAB - MICROBIOL OGY ORDERABLES [address] [phone] * FIBRINOGEN ACTIVITY (11/05/2014 4:54 AM [employer] SANDER AND FINISHER) Fibrinogen Clauss 219 170 - 400 mg/dL [facility] Blood specimen (specimen) BLOOD SPECIMEN / Unknown 11/05/2014 4:54 AM [employer] SANDER AND FINISHER 11/05/2014 4:59 AM [employer] SANDER AND FINISHER Alvin Helm MD LAB - COAGULATI ON ORDERABLES [address] [phone] * LIPASE BLOOD (11/05/2014 4:54 AM [employer]NE[employer] SANDER AND FINISHER) Pathologist [facility] Lipase 19 8 - 78 Units/L [facility] Blood specimen (specimen) BLOOD SPECIMEN / Unknown 11/05/2014 4:54 AM [employer] S[employer]ER AND FINISHER 11/05/2014 4:59 AM [employer] S[employer]ER [employer] FINISHER Alvin Helm MD LAB - CHEMISTRY ORDERABLES Performing Organization Address City/[facility]/ZIP Co de Phone Number [address] [phone] * LACTIC ACID BLOOD (11/05/2014 4:54 AM [employer] SANDER AND FINISHER) Pathologist [facility] Lactic Acid-Stat 0.7 0.5 - 2.2 mmol/L [facility] Blood specimen (specimen) BLOOD SPECIMEN / Unknown 11/05/2014 4:54 AM [employer]ER [employer] FINISHER 11/05/2014 5:00 AM [employer] S[employer]ER [employer] FINISHER Alvin Helm MD LAB - CHEMISTRY ORDERABLES Performing Organization Address City/[facility]/ZIP Co de Phone Number [address] [phone] * (ABNORMAL) CK + CKMB PANEL (11/05/2014 4:54 AM [employer] SANDER AND FINISHER) Pathologist [facility] CK Total 20(L) 30 - 200 Units/L [facility] CK-MB 0.3 0.0 - 6.6 ng/mL [facility] Blood specimen (specimen) BLOOD SPECIMEN / Unknown 11/05/2014 4:54 AM [employer] S[employer]ER AND FINISHER 11/05/2014 4:59 AM [employer] SANDER AND FINISHER Alvin Helm MD LAB - CHEMISTRY ORDERABLES [facility] [address] [phone] * XR CHEST 1VW PORTABLE (11/05/2014 4:48 AM [employer] SANDER [employer] FINISHER) Anatomical Region Laterality Modality Chest Other Impressions 11/05/2014 5:20 PM [employer] S[employer] FINISHER IMPRESSION: No acute pulmonary process. Dictated by Alexandre Solano MD (vice president sales). This report was approved ??by ALEXANDRE SOLANO ?? on 11/05/2014 1:[address] Carmen Monroe M.D. have personally reviewed and interpreted this examination/study. This report was electronically signed by Carmen STARK M.D. ??on 11/05/2014 5:20 PM . Narrative 11/05/2014 5:20 PM [employer] S[employer]ER [employer] FINISHER EXAMINATION: PX CHEST 1 VW DATE: 11/05/2014 4:48 AM HISTORY: leukocytosis COMPARISON: Comparison is made with a study from 10/26/2014. FINDINGS: There is no focal consolidation, pleural effusion, or pneumothorax. The cardiomediastinal silhouette is normal. The visible bony thorax is intact. Procedure Note Urszula Stark MD - 02/22/2018 EXAMINATION: PX CHEST 1 VW DATE: 11/05/2014 4:48 AM HISTORY: leukocytosis COMPARISON: Comparison is made with a study from 10/26/2014. FINDINGS: There is no focal consolidation, pleural effusion, or pneumothorax. Thecardiomediastinal silhouette is normal. The visible bony thorax isintact. IMPRESSION IMPRESSION: No acute pulmonary process. Dictated by Alexandre Solano MD (vice president sales). This report was approved by ALEXANDRE SOLANO on 11/05/2014 1:43 PM . IDr. Carmen M.D. have personally reviewed and interpreted thisexamination/study. This report was electronically signed by Carmen STARK M.D. on11/05/2014 5:20 PM . Alvin Helm MD DIAGNOSTIC IMAG ING ORDERABLES * BASIC METABOLIC PANEL (CALCIUM TOTAL) (11/03/2014 4:23 AM [employer] SANDER AND FINISHER) Only the most recent of6 resultswithin the time period is included. BUN 10 7 - 26 mg/dL [facility] Creatinine 0.9 0.6 - 1.2 mg/dL [facility] Sodium 142 136 - 145 mmol/L [facility] Potassium 3.8 3.5 - 4.5 mmol/L [facility] Chloride 106 98 - 107 mmol/L [facility] CO2 28 22 - 29 mmol/L [facility] Glucose 87 70 - 115 mg/dL [facility] Calcium 9.1 8.4 - 10.2 mg/dL [facility] Anion Gap 12 8 - 18 [facility] BUN/Creatinine Ratio 11 7 - 23 [facility] Osmolality Calculated 278 270 - 300 mOsm/kg [facility] eGFR >60 >60 mL/min/1.7 3 m2 [facility] Blood specimen (specimen) BLOOD SPECIMEN / Unknown 11/03/2014 4:23 AM [employer] S[employer]ER [employer] FINISHER 11/03/2014 4:53 AM [employer] SANDER [employer] FINISHER Joann Davis MD LAB - CHEMISTRY O RDERABLES Performing Organization Address City/State/[facility] Co de Phone Number [address] [phone] * CT CHEST W CONTRAST (11/02/2014 9:18 PM [employer] S[employer]ER [employer] FINISHER) Anatomical Region Laterality Modality Chest Other Impressions 11/04/2014 8:51 AM [employer] S[employer]ER [employer] FINISHER IMPRESSION: 1. No CT evidence of metastatic disease in the chest. Report dictated by Raymond Juares M.D. (resident). This report was approved ??by Raymond Juares M.D. ?? on 11/03/2014 8:[address] Carmen Monroe M.D. have personally reviewed and interpreted this examination/study. This report was electronically signed by Carmen STARK M.D. ??on 11/04/2014 8:51 AM . Narrative 11/04/2014 8:51 AM [employer]ER [employer] FINISHER EXAMINATION: Computed tomography of the chest with contrast HISTORY: 24 year-old with small bowel mass, assess for metastasis. TECHNIQUE: Computed tomography of the chest was performed following the uneventful administration of 100 mL Omnipaque 350 intravenous contrast according to standard protocol. FINDINGS: No prior study is available for comparison. No pulmonary consolidation, suspicious pulmonary nodules, pleural effusion, or pneumothorax is identified. The heart size is normal and without pericardial effusion. The great vessels are normal in size and configuration. The left-sided aorta is normal in course and caliber. No supraclavicular, axillary, mediastinal, or hilar lymphadenopathy is present. The thyroid gland is homogeneous. No abnormality is seen in the visualized upper abdomen. Bone windows demonstrate no suspicious lytic or blastic lesions. Procedure Note Urszula Stark MD - 02/22/2018 EXAMINATION: Computed tomography of the chest with contrast HISTORY: 24 year-old with small bowel mass, assess for metastasis. TECHNIQUE: Computed tomography of the chest was performed following theuneventful administration of 100 mL Omnipaque 350 intravenous contrastaccording to standard protocol. FINDINGS: No prior study is available for comparison. No pulmonary consolidation, suspicious pulmonary nodules, pleuraleffusion, or pneumothorax is identified. The heart size is normal and without pericardial effusion. The greatvessels are normal in size and configuration. The left-sided aorta isnormal in course and caliber. No supraclavicular, axillary, mediastinal,or hilar lymphadenopathy is present. The thyroid gland is homogeneous. No abnormality is seen in the visualized upper abdomen. Bone windows demonstrate no suspicious lytic or blastic lesions. IMPRESSION IMPRESSION: 1. No CT evidence of metastatic disease in the chest. Report dictated by Raymond Juares M.D. (resident). This report was approved by Raymond Juares M.D. on 11/03/2014 8:[address] Carmen Monroe M.D. have personally reviewed and interpreted thisexamination/study. This report was electronically signed by Carmen STARK M.D. on11/04/2014 8:51 AM . Joann Davis MD CT ORDERABLES * CT ABDOMEN PELVIS W CONTRAST (10/28/2014 5:05 PM [employer] FINISHER) Anatomical Region Laterality Modality Abdomen, Pelvis Other Impressions 10/29/2014 12:04 PM [employer] FINISHER IMPRESSION: No CT findings to explain the patient's symptoms. No CT evidence of active GI bleed. A small amount of free pelvic fluid is noted. Report dictated by Raymond Juares M.D. (resident). This report was approved ??by Raymond Juares M.D. ?? on 10/29/2014 10:15 AM . I, Dr. LOW MOJICA M.D. have personally reviewed and interpreted this examination/study. This report was electronically signed by LOW MOJICA M.D. ??on 10/29/2014 12:04 PM . Narrative 10/29/2014 12:04 PM [employer] FINISH[employer] EXAMINATION: Computed tomography of the abdomen and pelvis with contrast HISTORY: 24-year-old male with two-week history of black stools and bright red blood per rectum, unknown source of GI bleed. TECHNIQUE: Computed tomography of the abdomen and pelvis was performed following the uneventful administration of mL Omnipaque 350 intravenous contrast according to standard protocol. FINDINGS: No prior study is available for comparison. The visualized lung bases are clear. The heart size is normal without pericardial effusion. The liver enhances homogenously. No focal intrahepatic lesions are seen. The gallbladder is normal without evidence of gallstones or gallbladder wall thickening. There is no intrahepatic or extrahepatic biliary ductal dilatation. The pancreas is normal. The spleen is normal. The adrenal glands are normal. The kidneys enhance symmetric bilaterally. There is no evidence of renal stone or hydronephrosis. The small and large bowel are normal in caliber and without evidence of wall thickening or obstruction. The appendix is not visualized, however no fat stranding in the right lower quadrant is identified to suggest appendicitis. No free intraperitoneal air or fluid is identified. No enlarged lymph nodes are seen. The enhanced abdominal aorta is normal in course and caliber. The remaining enhanced vascular structures are normal. The urinary bladder is normal. The prostate gland is not. A small amount of free pelvic fluid is seen. Bone windows demonstrate no suspicious lytic or blastic lesions. Diffuse degenerative changes are present. Procedure Note Low Mojica MD - 02/22/2018 EXAMINATION: Computed tomography of the abdomen and pelvis with contrast HISTORY: 24-year-old male with two-week history of black stools and brightred blood per rectum, unknown source of GI bleed. TECHNIQUE: Computed tomography of the abdomen and pelvis was performedfollowing the uneventful administration of mL Omnipaque 350 intravenouscontrast according to standard protocol. FINDINGS: No prior study is available for comparison. The visualized lung bases are clear. The heart size is normal withoutpericardial effusion. The liver enhances homogenously. No focal intrahepatic lesions are seen.The gallbladder is normal without evidence of gallstones or gallbladderwall thickening. There is no intrahepatic or extrahepatic biliary ductaldilatation. The pancreas is normal. The spleen is normal. The adrenal glands are normal. The kidneys enhancesymmetric bilaterally. There is no evidence of renal stone orhydronephrosis. The small and large bowel are normal in caliber and without evidence ofwall thickening or obstruction. The appendix is not visualized, however nofat stranding in the right lower quadrant is identified to suggestappendicitis. No free intraperitoneal air or fluid is identified. No enlarged lymph nodes are seen. The enhanced abdominal aorta is normal in course and caliber. Theremaining enhanced vascular structures are normal. The urinary bladder is normal. The prostate gland is not. A small amountof free pelvic fluid is seen. Bone windows demonstrate no suspicious lytic or blastic lesions. Diffusedegenerative changes are present. IMPRESSION IMPRESSION: No CT findings to explain the patient's symptoms. No CT evidence of activeGI bleed. A small amount of free pelvic fluid is noted. Report dictated by Raymond Juares M.D. (resident). This report was approved by Raymond uJares M.D. on 10/29/2014 10:15 AM. IDr. LOW M.D. have personally reviewed and interpretedthis examination/study. This report was electronically signed by LOW MOJICA M.D. on10/29/2014 12:04 PM . Michaela Pate MD CT ORDERABLES * NM MECKELS SCAN (10/28/2014 11:07 AM MANNEQUIN SANDER AND FINISHER) Anatomical Region Laterality Modality Other Impressions 10/28/2014 2:41 PM MANNEQUIN SANDER AND FINISHER Impression: No scintigraphic evidence of Meckel's diverticulum with active ectopic gastric tissue. This report was approved ??by Bipin Gomez M.D. ?? on 10/28/2014 1:17 PM . I, Dr. FRIDA BURGOS M.D. have personally reviewed and interpreted this examination/study. This report was electronically signed by FRIDA BURGOS M.D. ??on 10/28/2014 2:41 PM . Narrative 10/28/2014 2:41 PM MANNEQUIN SANDER AND FINISHER Procedure: Meckel's scan History: 24-year-old male with melena and iron deficiency anemia. Video endoscopy demonstrated possible AVMs in the small bowel. Technique: 5.5 mCi of Tc 99m pertechnetate was injected intravenously in the right forearm. Dynamic blood flow and function images of the abdomen and pelvis were obtained for 60 minutes. Findings: No prior study is available for comparison. On the flow images, normal radiotracer distribution is seen throughout the vascular structures. The dynamic functional images show normal physiologic uptake of tracer by the stomach and the bladder, with transit of the radiotracer into the small bowel. No functional ectopic gastric tissue is identified. Procedure Note Frida Burgos MD - 02/22/2018 Procedure: Meckel's scan History: 24-year-old male with melena and iron deficiency anemia. Videoendoscopy demonstrated possible AVMs in the small bowel. Technique: 5.5 mCi of Tc 99m pertechnetate was injected intravenously inthe right forearm. Dynamic blood flow and function images of the abdomenand pelvis were obtained for 60 minutes. Findings: No prior study is available for comparison. On the flow images, normal radiotracer distribution is seen throughout thevascular structures. The dynamic functional images show normal physiologicuptake of tracer by the stomach and the bladder, with transit of theradiotracer into the small bowel. No functional ectopic gastric tissue is identified. IMPRESSION Impression: No scintigraphic evidence of Meckel's diverticulum with active ectopicgastric tissue. This report was approved by Bipin Gomez M.D. on 10/28/2014 1:17 PM . I, Dr. FRIDA BURGOS M.D. have personally reviewed and interpreted thisexamination/study. This report was electronically signed by FRIDA BURGOS M.D. on 10/28/20142:41 PM . Michaela Pate MD NM ORDERABLES * (ABNORMAL) HEMATOCRIT (10/26/2014 10:03 AM MANNEQUIN SANDER AND FINISHER) Only the most recent of8 resultswithin the time period is included. Hematocrit 26.3(L) 39.0 - 50.0 % [facility] Blood specimen (specimen) BLOOD SPECIMEN / Unknown 10/26/2014 10:03 AM MANNEQUIN SANDER AND FINISHER 10/26/2014 10:38 AM MANNEQUIN SANDER AND FINISHER Michaela Pate MD LAB - HEMATOLOGY ORD ERABLES Performing Organization Address City/[facility]/ZIP Co de Phone Number [address] [phone] * (ABNORMAL) HEMOGLOBIN (10/26/2014 10:03 AM MANNEQUIN SANDER AND FINISHER) Only the most recent of8 resultswithin the time period is included. Hemoglobin 8.6(L) 13.5 - 17.5 g/dL [facility] Blood specimen (specimen) BLOOD SPECIMEN / Unknown 10/26/2014 10:03 AM MANNEQUIN SANDER AND FINISHER 10/26/2014 10:38 AM MANNEQUIN SANDER AND FINISHER Michaela Pate MD LAB - HEMATOLOGY ORD ERABLES [address] [phone] * (ABNORMAL) TRANSFERRIN (10/24/2014 4:26 PM MANNEQUIN SANDER AND FINISHER) Transferrin 210 174 - 382 mg/dL [facility] Transferrin Saturation % 10(L) 16 - 50 % [facility] Blood specimen (specimen) BLOOD SPECIMEN / Unknown 10/24/2014 4:26 PM MANNEQUIN SANDER AND FINISHER 10/24/2014 4:26 PM MANNEQUIN SANDER AND FINISHER Harsha Ayala MD LAB - CHEMISTRY JARRED HOOPER Performing Organization Address [facility] Co de Phone Number [address] [phone] * (ABNORMAL) IRON BLOOD (10/24/2014 4:26 PM MANNEQUIN SANDER AND FINISHER) Iron 25(L) 50 - 175 mcg/dL [facility] Blood specimen (specimen) BLOOD SPECIMEN / Unknown 10/24/2014 4:26 PM MANNEQUIN SANDER AND FINISHER 10/24/2014 4:26 PM MANNEQUIN SANDER AND FINISHER Harsha Ayala MD LAB - CHEMISTRY JARRED HOOPER Performing Organization Address [facility] Co de Phone Number [address] [phone] * FERRITIN (10/24/2014 4:26 PM MANNEQUIN SANDER AND FINISHER) Ferritin 186 22 - 275 ng/mL [facility] Blood specimen (specimen) BLOOD SPECIMEN / Unknown 10/24/2014 4:26 PM MANNEQUIN SANDER AND FINISHER 10/24/2014 4:26 PM MANNEQUIN SANDER AND FINISHER Harsha Ayala MD LAB - CHEMISTRY JARRED HOOPER Performing Organization Address [facility] de Phone Number [address] [phone] * (ABNORMAL) RETIC COUNT (10/24/2014 10:27 AM MANNEQUIN SANDER AND FINISHER) Reticulocyte % 11.4(H) 0.4 - 2.5 % [facility] Reticulocyte Absolute 0.32(H) 0.02 - 0.13 10? 6 /uL [facility] Blood specimen (specimen) BLOOD SPECIMEN / Unknown 10/24/2014 10:27 AM MANNEQUIN SANDER AND FINISHER 10/24/2014 11:34 AM MANNEQUIN SANDER AND FINISHER Harsha Ayala MD LAB - HEMATOLOGY KIRT ARELLANO [address] [phone] * FOLATE (10/24/2014 10:27 AM MANNEQUIN SANDER AND FINISHER) Folate 7.0 7.0 - 31.4 ng/mL [facility] Blood specimen (specimen) BLOOD SPECIMEN / Unknown 10/24/2014 10:27 AM MANNEQUIN SANDER AND FINISHER 10/24/2014 11:34 AM MANNEQUIN SANDER AND FINISHER Harsha Ayala MD LAB - CHEMISTRY JARRED HOOPER Performing Organization Address City/[facility] Co de Phone Number [address] [phone] * VITAMIN B12 (10/24/2014 10:27 AM MANNEQUIN SANDER AND FINISHER) Vitamin B12 436 213 - 816 pg/mL [facility] Blood specimen (specimen) BLOOD SPECIMEN / Unknown 10/24/2014 10:27 AM MANNEQUIN SANDER AND FINISHER 10/24/2014 11:34 AM MANNEQUIN SANDER AND FINISHER Harsha Ayala MD LAB - CHEMISTRY JARRED HOOPER Performing Organization Address City/[facility] Co de Phone Number [address] [phone] * HAPTOGLOBIN (10/24/2014 4:37 AM MANNEQUIN SANDER AND FINISHER) Haptoglobin 117 14 - 258 mg/dL [facility] Blood specimen (specimen) BLOOD SPECIMEN / Unknown 10/24/2014 4:37 AM MANNEQUIN SANDER AND FINISHER 10/24/2014 4:37 AM MANNEQUIN SANDER AND FINISHER Harsha Ayala MD LAB - CHEMISTRY JARRED HOOPER Performing Organization Address City/[facility] Co de Phone Number [address] [phone] * (ABNORMAL) HEPATIC FUNCTION PANEL (10/24/2014 2:29 AM MANNEQUIN SANDER AND FINISHER) Protein Total 5.6(L) 6.0 - 8.3 g/dL [facility] Albumin 3.4 3.4 - 5.0 g/dL [facility] Bilirubin Total 0.5 0.2 - 1.2 mg/dL [facility] Bilirubin Conjugated 0.1 0.0 - 0.5 mg/dL [facility] Bilirubin Unconjugated 0.4 Unconjugated Bilirubin is a calculated value: Reference ranges have not been established. mg/dL [facility] Alkaline Phosphatase 53 40 - 150 Units/L [facility] ALT 24 0 - 55 Units/L [facility] AST 20 5 - 34 Units/L [facility] Albumin/Globulin Ratio 1.5 1.1 - 2.3 [facility] Blood specimen (specimen) BLOOD SPECIMEN / Unknown 10/24/2014 2:29 AM MANNEQUIN SANDER AND FINISHER 10/24/2014 2:29 AM MANNEQUIN SANDER AND FINISHER Harsha Ayala MD LAB - CHEMISTRY JARRED HOOPER Performing Organization Address City/[facility] Co de Phone Number [address] [phone] * LDH BLOOD (10/24/2014 2:29 AM MANNEQUIN SANDER AND FINISHER) LDH Total 147 125 - 243 Units/L [facility] Blood specimen (specimen) BLOOD SPECIMEN / Unknown 10/24/2014 2:29 AM MANNEQUIN SANDER AND FINISHER 10/24/2014 2:29 AM MANNEQUIN SANDER AND FINISHER Harsha Ayala MD LAB - CHEMISTRY JARRED HOOPER Performing Organization Address City/[facility] Co de Phone Number [address] [phone] Care Teams Case Finishing Machine Adjuster Relationship Specialty Start Date End Date Marlen Rico APRN-DOT [address] [place] [id number] PCP - General Nurse Practitioner Family 04/07/24
--- OUTSIDE RECORDS SUMMARY | 2024-12-25 12:44 | XMS_ITS | Clinical Summary ---
Author Organization [facility] Address [address] [place] [address] Phone Care Team Providers Care Kennel Worker Name Role Phone Unavailable Primary Care Provider Unavailabl e Allergies No known active allergies Medications ibuprofen (MOTRIN) 600 mg tablet Take 600 mg by mouth every 6 hours as needed. Active Active Problems No known active problems Social History Tobacco Use Types Packs/Day Years Used Date Smoking Tobacco: Never Alcohol Use Standard Drinks/Week Comments Not Currently 0 (1 standard drink = 0.6 oz pur e alcohol) Sex and Gender Information Value Date Recorded Sex Assigned at Not on file Legal Sex Male 10:28 AM CDT Gender Identity Not on file Sexual Orientation Not on file Last Filed Vital Signs Vital Sign Reading Time Taken Comments Blood Pressure 116/78 10/11/2020 2:38 PM MANUFACTURING ENGINEERING MANAGER Pulse 97 10/11/2020 2:38 PM MANUFACTURING ENGINEERING MANAGER Temperature 37.3 ??C (99.1 ??F) 10/11/2020 2:38 PM CS T Respiratory Rate - - Oxygen Saturation - - Inhaled Oxygen Concentration - - Weight 63 kg (139 lb) 10/11/2020 2:38 PM MANUFACTURING ENGINEERING MANAGER Height 177.8 cm (5' 10 ) 10/11/2020 2:38 PM MANUFACTURING ENGINEERING MANAGER Body Mass Index 19.94 10/11/2020 2:38 PM MANUFACTURING ENGINEERING MANAGER Plan of Treatment Health Maintenance Due Date Last Done Comments DTAP/TDAP/TD VACCINES (1 - Tdap) 2008 HEPATITIS B VACCINES (1 of 3 - 19+ 3-dose series) 2008 INFLUENZA VACCINE (#1) 2024 HPV VACCINES Aged Out No longer eligi ble based on patient's age to complete this topic PNEUMOCOCCAL VACCINE 0-64 YEARS Aged Out No longer eligible based on patient's age to complete this topic
--- OUTSIDE RECORDS SUMMARY | 2024-12-25 12:44 | XMS_ITS | Clinical Summary ---
Author Organization [facility] Address [address] [place] [address] Care Team Providers Care Sports Fitness And Wellness Director Name Role Phone Marlen Rico APRN-LONG WALL MINING MACHINE TENDER Primary Care Provider [phone] Source Comments [facility],non-owned Affiliates and Associated Physician Practices is amultiple site organization consisting of ambulatory clinics and hospital sitesin [place], [place], [place] and [place]. This disclosure is being madepursuant to the Care Everywhere program and may not contain all information available regarding this patient. Last updated 18.[facility] Allergies Active Allergy Reactions Criticality Noted Date [...] 04/27/2019 3:59 PM CDT Plan of Treatment Health Maintenance Due Date Last Done Comments HIV SCREENING 2004 HEPATITIS C SCREENING 09/02/2007 DTAP/TDAP/TD VACCINES (1 - Tdap) 2008 HEPATITIS B VACCINE (1 of 3 - 19+ 3-dose series) 2008 COVID-19 VACCINE (4 - 2023-2 5 season) 2024 03/08/2022, 05/12/2021, 04/14/2021 INFLUENZA VACCINE (#1) 2024 DEPRESSION SCREENING 11/25/2024 ZOSTER VACCINE (1 of 2) 2039 HIB VACCINE Aged Out No longer eligi ble based on patient's age to complete this topic HPV VACCINE Aged Out No longer eligi ble based on patient's age to complete this topic MENINGOCOCCAL (Group B) VACCINE Aged Out No longer eligible b ased on patient's age to complete this topic MENINGOCOCCAL VACCINE Aged Out No [place] eligible based on patient's age to complete this topic PNEUMOCOCCAL VACCINE Aged Out No long er eligible based on patient's age to complete this topic Care Teams Sports Fitness And Wellness Director Relationship Specialty Start Date End Date Marlen Rico APRN-LONG WALL MINING MACHINE TENDER [address] [place] [address] PCP - General Nurse Practitioner Family 04/07/24
--- OUTSIDE RECORDS SUMMARY | 2024-12-25 12:44 | XMS_ITS | Data Portability ---
Author Organization [facility] Address [address] [place] [address] Care Team Providers Care Assistant Construction Superintendent Name Role Phone IRVIN, MARLEN Primary Care Provider Assessment No assessment recorded. Plan of Treatment Reminders Order Date Submit Date Provider Last Modified By Organization Details Last Modified Time Details Appointments None recorded . Lab vitamin D, 25-hydro xy, total, serum 2022 023 ED [facility], [address] [place] [address] 2, [place], [address], 3 07:11:57 TSH, ultra-se nsitive, serum 2022 023 ED [facility], [address], [address], [place], [address], 3 07:11:56 CMP, serum or plasma 2022 023 [facility], [address], [address], [place], [address], 3 20:08:28 lipid panel, serum 2022 023 ED [facility], [address], [place], [address], 3 20:08:28 CBC w/ auto diff 2022 023 ED [facility], [address] [facility] 2, [place], [address], 3 20:08:29 Referral cardiolo gist referral 2022 023 [facility] Technical Instructor, [address] [facility] , [address], [place], [address], 3 00:42:50 Procedures None recorded . Surgeries None recorded . Imaging holter monitor 2022 023 [facility] [address] [place], [address], 3 12:17:21 CT, chest, w/o contrast 2023 024 [facility]), [address] [place], [address], 4 14:07:48 Medication Orders omeprazo le 20 mg capsule, delayed release 2023 024 [facility] [id number] [facility], [address], [place], [address], 4 11:50:27 Patient TargetsNo targets recorded. Patient Instructions Encounter Date Encounter Id Patient Instructions Last Modified By Organization Details Last Modified Time 03/18/2023 [id number] gastroesophageal reflux disease (GERD): care instructions Not available 03/18/2023 10:35:57 Avoid eating lat e at night and foods that are spicy or acidic. Decrease fatty foods and increase fresh fruits and vegetables and daily intake of fiber. Drink at least 8-10 glasses of water per day. Increase activity level and work up to at least 30 minutes of exercise most days of the week. Not available 03/19/2023 17:56:24 follow up as needed Not availa ble 03/19/2023 17:56:32 08/13/2023 [id number] anxiety disorder : care instructions Not available 08/13/2023 15:24:22 Increase clear fluids. 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 Not available 08/13/2023 16:53:36 Plan pending results. f/u as needed DWP barriers to care: none Not available 08/13/2023 16:53:46 02/20/2024 [id number] anxiety disorder : care instructions Not available 02/20/2024 11:49:03 shortness of nikhil ath: care instructions Not available 02/20/2024 11:49:03 Avoid eating lat e at night and foods that are spicy or acidic. Decrease fatty foods and increase fresh fruits and vegetables and daily intake of fiber. Drink at least 8-10 glasses of water per day. Increase activity level and work up to at least 30 minutes of exercise most days of the week. Not available 02/20/2024 11:42:08 Call cardiology for follow up apt. Plan pending imaging results. f/u as needed DWP barriers to care: none Not available 02/20/2024 11:42:00 Reason for Referral Ensemble Member Referral for Hi story of pericarditis Referring Physician: Marlen Irvin, Family Medicine, Encounter Date: 08/13/2023 Results Created Date Observation Date Name Description Value Unit Range Abnormal Flag Note LastModifiedBy Organization Detail LastModifiedTime 03/18/2003/18/2023 LIPID PANEL cholesterol, total 169.4 mg/dL 140.0- 200.0 Not Available [facility] [address] [place], [address], 03/18/2023 20:08:27 03/18/2003/18/2023 LIPID PANEL triglyceride s 103 mg/dL <=150 Not Available [facility] Department [address] [place], [address], 03/18/2023 20:08:27 03/18/20 23 03/18/2023 LIPID PANEL HDL cholesterol 45.0 mg/dL 40.0-1 00.0 Not Available [facility] [address] [place], [address], 03/18/2023 20:08:27 03/18/20 23 03/18/2023 LIPID PANEL VLDL cholesterol christina 20.60 mg/dL 5.00-4 0.00 Not Available [facility] Department [address] [place], [address], 03/18/2023 20:08:27 03/18/20 23 03/18/2023 LIPID PANEL LDL chol calc ([facility]) 105.5 Not Available [facility] Department [address] [place], [address], 03/18/2023 20:08:27 03/18/20 23 03/18/2023 COMP. METAB OLIC PANEL (14) glucose 91 mg/dL 65-99 ANION GP 15.0 mmol/ L N OSMOL 285.0 mOsM/ L N REFER ENCE RANGE : 275.0 -301. 0 Not Available [facility] [address] [place], [address], 03/18/2023 20:08:28 03/18/20 23 03/18/2023 COMP. METAB OLIC PANEL (14) BUN 13 mg/dL 8-26 Not Available [facility] [address] [place], [address], 03/18/2023 20:08:28 03/18/20 23 03/18/2023 COMP. METAB OLIC PANEL (14) creatinine 0.95 mg/dL 0.50-1 .40 Not Available [facility] [address] [place], [address], 03/18/2023 20:08:28 03/18/20 23 03/18/2023 COMP. METAB OLIC PANEL (14) eGFR 108 mL/mi n/1.7 3 >=60 Not Available [facility] [address] [place], [address], 03/18/2023 20:08:28 03/18/20 23 03/18/2023 COMP. METAB OLIC PANEL (14) BUN/creatini ne ratio 14.0 Not Available [facility] Department [address] [place], [address], 03/18/2023 20:08:28 03/18/20 23 03/18/2023 COMP. METAB OLIC PANEL (14) sodium 143.0 mmol/ L 136.0- 144.0 Not Available [facility] [address] [place], [address], 03/18/2023 20:08:28 03/18/20 23 03/18/2023 COMP. METAB OLIC PANEL (14) potassium 3.5 mmol/ L 3.5-5. 3 Not Available [facility] Department [address] [place] [address], [address], 03/18/2023 20:08:28 03/18/20 23 03/18/2023 COMP. METAB OLIC PANEL (14) chloride 104 mmol/ l 101-11 1 Not Available [facility] [address] [place] [address], [address], 03/18/2023 20:08:28 03/18/20 23 03/18/2023 COMP. METAB OLIC PANEL (14) carbon dioxide, total 27.8 mmol/ L 21.0-3 2.0 Not Available [facility] [address] [place] [address], [address], 03/18/2023 20:08:28 03/18/20 23 03/18/2023 COMP. METAB OLIC PANEL (14) calcium 10.1 mg/dL 8.2-10 .0 above high normal Not Available [facility] [address] [place], [address], 03/18/2023 20:08:28 03/18/20 23 03/18/2023 COMP. METAB OLIC PANEL (14) protein, total 7.6 g/dL 6.7-8. 2 Not Available [facility] [address] [place] [address], [address], 03/18/2023 20:08:28 03/18/20 23 03/18/2023 COMP. METAB OLIC PANEL (14) albumin 5.1 g/dL 3.5-5. 5 Not Available [facility] [address] [place], [address], 03/18/2023 20:08:28 03/18/20 23 03/18/2023 COMP. METAB OLIC PANEL (14) globulin, total 2.5 g/dL 1.5-4. 5 Not Available [facility] [address] [place], [address], 03/18/2023 20:08:28 03/18/20 23 03/18/2023 COMP. METAB OLIC PANEL (14) A/G ratio 2.1 Not Available [facility] Department [address] [place] [address], [address], 03/18/2023 20:08:28 03/18/20 23 03/18/2023 COMP. METAB OLIC PANEL (14) bilirubin, total 0.6 mg/dL 0.0-1. 2 Not Available [facility] [address] [place], [address], 03/18/2023 20:08:28 03/18/20 23 03/18/2023 COMP. METAB OLIC PANEL (14) alkaline phosphatase 82.7 IU/L 42.0-1 21.0 Not Available [facility] [address] [place] [address], [address], 03/18/2023 20:08:28 03/18/20 23 03/18/2023 COMP. METAB OLIC PANEL (14) AST (SGOT) 12.5 U/L 10.0-4 2.0 Not Available [facility] [address] [place] [address], [address], 03/18/2023 20:08:28 03/18/20 23 03/18/2023 COMP. METAB OLIC PANEL (14) ALT (SGPT) 11.1 U/L 10.0-6 0.0 Not Available [facility] [address] [place] [address], [address], 03/18/2023 20:08:28 03/18/20 23 03/18/2023 CBC WITH DIFFE RENTI AL/PL ATELE T WBC 5.4 K/uL 3.4-10 .8 Not Available [facility] [address] [place], [address], 03/18/2023 20:08:29 03/18/20 23 03/18/2023 CBC WITH DIFFE RENTI AL/PL ATELE T RBC 5.1 M/uL 4.5-6. 3 Not Available [facility] [address] [place], [address], 03/18/2023 20:08:29 03/18/20 23 03/18/2023 CBC WITH DIFFE RENTI AL/PL ATELE T hemoglobin 15.0 g/dL 13.5-1 7.5 Not Available [facility] [address] [facility], [place], [address], 03/18/2023 20:08:29 03/18/2003/18/2023 CBC WITH DIFFE RENTI AL/PL ATELE T hematocrit 45.9 % 40.0-5 2.0 Not Available [facility] [address] [place], [address], 03/18/2023 20:08:29 03/18/2003/18/2023 CBC WITH DIFFE RENTI AL/PL ATELE T MCV 90 fL 80-95 Not Available [facility] [address] [place], [address], 03/18/2023 20:08:29 03/18/2003/18/2023 CBC WITH DIFFE RENTI AL/PL ATELE T MCH 29 pg 27-32 Not Available [facility] [address] [place], [address], 03/18/2023 20:08:29 03/18/20 23 03/18/2023 CBC WITH DIFFE RENTI AL/PL ATELE T MCHC 33 g/dL 32-36 Not Available [facility] [address] [place], [address], 03/18/2023 20:08:29 03/18/2003/18/2023 CBC WITH DIFFE RENTI AL/PL ATELE T RDW 12.3 % 11.5-1 4.5 Not Available [facility] [address] [place], [address], 03/18/2023 20:08:29 03/18/20 23 03/18/2023 CBC WITH DIFFE RENTI AL/PL ATELE T platelets 212 K/uL 155-37 9 MPV 11.2 FL 8.9-1 2.7 N Not Available [facility] [address] [place], [address], 03/18/2023 20:08:29 03/18/20 23 03/18/2023 CBC WITH DIFFE RENTI AL/PL ATELE T neutrophils 52.4 % 40.0-7 4.0 Not Available [facility] [address] [place], [address], 03/18/2023 20:08:29 03/18/2003/18/2023 CBC WITH DIFFE RENTI AL/PL ATELE T lymphs 31.5 % 14.0-4 6.0 Not Available [facility] [address] [place], [address], 03/18/2023 20:08:29 03/18/2003/18/2023 CBC WITH DIFFE RENTI AL/PL ATELE T monocytes 9.6 % 4.0-12 .0 Not Available [facility] [address] [place], [address], 03/18/2023 20:08:29 03/18/20 23 03/18/2023 CBC WITH DIFFE RENTI AL/PL ATELE T eos 5 % 0-5 Not Available [facility] [address] [place], [address], 03/18/2023 20:08:29 03/18/20 23 03/18/2023 CBC WITH DIFFE RENTI AL/PL ATELE T basos 1.5 % 0.0-1. 0 above high normal Not Available [facility] [address] [place], [address], 03/18/2023 20:08:29 03/18/20 23 03/18/2023 CBC WITH DIFFE RENTI AL/PL ATELE T neutrophils (absolute) 2.8 K/uL 1.4-7. 0 Not Available [facility] [address] [place], [address], 03/18/2023 20:08:29 03/18/20 23 03/18/2023 CBC WITH DIFFE RENTI AL/PL ATELE T lymphs (absolute) 1.7 K/uL 0.7-3. 1 Not Available [facility] [address] [place], [address], 03/18/2023 20:08:29 03/18/20 23 03/18/2023 CBC WITH DIFFE RENTI AL/PL ATELE T monocytes(ab solute) 0.5 K/uL 0.1-0. 9 Not Available [facility] [address] [place], [address], 03/18/2023 20:08:29 03/18/20 23 03/18/2023 CBC WITH DIFFE RENTI AL/PL ATELE T eos (absolute) 0.3 K/uL 0.0-0. 4 Not Available [facility] [address] [place], [address], 03/18/2023 20:08:29 03/18/20 23 03/18/2023 CBC WITH DIFFE RENTI AL/PL ATELE T baso (absolute) 0.1 K/uL 0.0-0. 3 Not Available [facility] [address] [place], [address], 03/18/2023 20:08:29 03/18/20 23 03/18/2023 CBC WITH DIFFE RENTI AL/PL ATELE T immature granulocytes 0.4 % Not Available [facility] Department [address] [place], [address], 03/18/2023 20:08:29 03/18/20 23 03/18/2023 CBC WITH DIFFE RENTI AL/PL ATELE T immature grans (abs) 0.0 K/uL Not Available [facility] Department [address] [place], [address], 03/18/2023 20:08:29 03/18/20 23 03/18/2023 CBC WITH DIFFE RENTI AL/PL ATELE T NRBC 0 % Not Available [facility] [address] [place], [address], 03/18/2023 20:08:29 03/18/20 23 03/19/2023 TSH RFX ON ABNOR MAL TO FREE T4 TSH 1.600 uIU/m L 0.450- 4.500 Not Available [facility] ([facility]) [address] [facility], [place], [address], 03/19/2023 07:11:56 03/18/2003/19/2023 VITAM IN D, 25-HY DROXY vitamin D, 25-hydroxy 40.1 NG/mL 30.0-1 00.0 Vitam in D defic iency has been defin ed by the Insti tute of Medic ine and an Endoc rine Socie ty pract ice guide line as a level of serum 25-OH vitam in D less than 20 ng/mL (1,2) . The Endoc rine Socie ty went on to [facility] er defin e vitam in D insuf ficie ncy as a level betwe en 21 and 29 ng/mL (2). 1. IOM (Inst itute of Medic ine). 2010. Dieta ry refer ence intak es for calci um and D. Miranda cook [place]: The [facility] . 2. Sandra dominguez [place], Deepa cooper [place], Bisch off-F errar i MANNING, et al. Evalu ation , treat ment, and preve ntion of vitam in D defic iency : an Endoc rine Socie ty clini christina pract ice guide line. JCEM. 2010; 96(7) :1911 -30. Not Available [facility] ([facility]) [address] [facility], [place], [address], 03/19/2023 07:11:56 07/30/20 23 07/29/2023 XR, chest , 2 view No observ ation record ed. [address] [facility] [address], [place], [address], 08/13/2023 16:54:11 09/05/20 23 08/27/2023 nellie r monit or No observ ation record ed. [facility] [address] [facility] [place], [address], 09/08/2023 23:06:48 03/09/20 24 02/25/2024 XR, chest , 2 view No observ ation record ed. [facility] [address] [facility] [address], [place], [address], 03/09/2024 22:48:29 04/07/20 24 04/04/2024 CT, chest , w/o contr ast No observ ation record ed. [facility] [address] [facility] [place], [address], 04/08/2024 21:40:03 Result Notes None recorded. Problems Name Problem SNOMED Code Status Onset Date Resolution Date Notes Provider Name and Address Organization Details Recorded Time Chronic neck pain 45466955855 07 Active Marlen Irvin, LOCKSTITCH WAISTLINE JOINER, CERTIFIED RECREATIONAL THERAPIST-C Attn: Iza g,[address] [facility], [place], [address], [facility] 3 16:55:32 Chronic back pain 938288845 Active Marlen Irvin APN, CERTIFIED RECREATIONAL THERAPIST-C Attn: Accountin g,[address] [facility], [place], [address], [facility] 3 16:55:32 Acquired arteriov enous malforma tion 08665737140 08 Active small intestin e Marlen Irvin APN, CERTIFIED RECREATIONAL THERAPIST-C Attn: Accountin g,[address] [facility], [place], [address], [facility] 3 16:55:33 Generali zed anxiety disorder 50353787 Active 2020 Marlen Irvin APN, CERTIFIED RECREATIONAL THERAPIST-C Attn: Accountin g,[address] [facility], [place], [address], [facility] 3 16:55:32 Divertic ular disease of colon 297994232 Active 2020 Marlen Irvin APN, CERTIFIED RECREATIONAL THERAPIST-C Attn: Terryin g,[address] [facility], [place], [address], [facility] 3 16:55:33 Unintent ional weight loss 333184057 Active 2020 Marlen Irvin APN, CERTIFIED RECREATIONAL THERAPIST-C Attn: Terryin g,[address] [facility], [place], [address], [facility] 3 16:55:33 Fatigue 50049066 Active 2020 Marlen Irvin APN, CERTIFIED RECREATIONAL THERAPIST-C Attn: Accountin g,[address] [facility], [place], [address], [facility] 3 16:55:33 Body mass index less than 20 049745332 Completed 202005/08/2021 Marlen Irvin APN, CERTIFIED RECREATIONAL THERAPIST-C Attn: Accountin g,[address] [facility], [place], [address], [facility] 1 15:47:56 History of pericard itis 50337470889 9105 Active 2020 Marlen Irvin APN CERTIFIED RECREATIONAL THERAPIST-C Attn: Iza davis,[address] [facility], [place], [address], [facility] 3 16:55:32 Gastroes ophageal reflux disease without esophagi tis 062957258 Active 2020 Marlen Irvin APN CERTIFIED RECREATIONAL THERAPIST-C Attn: Iza davis,[address] [facility], [place], [address], [facility] 3 16:55:32 Vitamin D deficien cy 92089241 Active 2020 Marlen Irvin APN CERTIFIED RECREATIONAL THERAPIST-C Attn: Iza davis,[address] [facility], [place], [address], [facility] 3 16:55:32 Chronic pain syndrome 680060468 Active 2020 Marlen Irvin APN CERTIFIED RECREATIONAL THERAPIST-C Attn: Iza davis,[address] [facility], [place], [address], [facility] 3 16:55:32 Low back pain 019864151 Active 2020 Marlen Irvin APN, CERTIFIED RECREATIONAL THERAPIST-C Attn: Iza davis,[address] [facility], [place], [address], [facility] 3 16:55:32 Problem Notes None recorded. Procedures Surgical History Date Name Laterality Status Provider Name and Address Organization Details Recorded Time 5 partial excision of small intestine completed Paz Musa PA-C Attn: Accounting,[address] [facility], [place], [address], [facility] 04/30/2019 10:04:49 Imaging Results Imaging Date Name Status LastModified by Organiz ation Details LastModified Time 07/29/2023 XR, chest, 2 view completed [address], [place], [address], 08/13/2023 16:54:11 08/27/2023 holter monitor completed [facility] [address] [place], [address], 09/08/2023 23:06:48 02/25/2024 XR, chest, 2 view completed [facility] [address], [place], [address], 03/09/2024 22:48:29 04/04/2024 CT, chest, w/o contrast completed [facility] [address] [place], [address], 04/08/2024 21:40:03 Procedure Notes None recorded. Medical Equipment None Reported. Allergies Allergen ID Allergen Name Allergen Category Reaction Reaction Severity Criticality Documentation Date Start Date Code Code System Note Provider Name and Address Organization Details Recorded Time [id number] amoxicill in medicatio n hives Not available Not available 04/30/2019 723 RxNorm Not Available Not Available Not Available [id number] Product containin g penicilli n and antibioti c (product) medicatio n Not available Not available Not available 08/13/20232016 01306 05 SNOMED Other react ions and sever ities : 'Unkn own'. Not Available Not Available Not Available Medications Name Sig Start Date Stop Date Status Note LastModified by Organization Details LastModified Time Prescript ion - Prior Authoriza tion Request active Not Available Not Available Not Available cyclobenz aprine 10 mg tablet TAKE 1 TABLET 3 TIMES A DAY BY ORAL ROUTE NEEDED. 01/04 completed prn Not Available Not Available Not Available buspirone 5 mg tablet TAKE 1 TABLET BY MOUTH THREE TIMES A DAY 02/09 completed 02/10/20 21-pt states he hasn't been taking Not Available Not Available Not Available ibuprofen 800 mg tablet TAKE 1 TABLET BY MOUTH THREE TIMES A DAY 03/18 completed Not Available Not Available Not Available ranitidin e 300 mg tablet Take 1 tablet every day by oral route at bedtime. 01/19 completed Not Available Not Available Not Available sucralfat e 1 gram tablet Take 1 tablet 3 times a day by oral route with meals. 01/19 completed Not Available Not Available Not Available pantopraz ole 20 mg tablet,de layed release TAKE 1 TABLET BY MOUTH EVERY DAY 06/05 completed increase d to 40mg Not Available Not Available Not Available cephalexi n 500 mg capsule TAKE 1 CAPSULE BY MOUTH EVERY 6 HOURS FOR 7 DAYS 05/07 completed Not Available Not Available Not Available pantopraz ole 40 mg tablet,de layed release TAKE 1 TABLET BY MOUTH EVERY DAY 01/04 completed pt states he is not currentl y taking Not Available Not Available Not Available lansopraz ole 30 mg capsule,d elayed release TAKE 1 CAPSULE BY MOUTH EVERY DAY active Not Available Not Available No t Available omeprazol e 20 mg capsule,d elayed release 2023 active Not Available Not Available Not Avai lable methylpre dnisolone 4 mg tablets in a dose pack TAKE DIRECTED 08/13 completed Not Available Not Available Not Available Prilosec OTC 20 mg tablet,de layed release Take 1 tablet every day by oral route. 01/19 completed Not Available Not Available Not Available Advil 02/09 completed Not Available Not Available Not Available omeprazol e 20 mg-sodium bicarbona te 1,680 mg oral packet active Not Available Not Available Not Available Nexium 24HR 20 mg capsule,d elayed release Take 1 capsule every day by oral route. 01/19 completed Not Available Not Available Not Available omeprazol e 20 mg delayed release,d isintegra ting tablet TAKE 1 TABLET TWICE A DAY BY ORAL ROUTE. 08/13 completed Not Available Not Available Not Available Vitals Date Recorded Body height Provider Name an d Address Organization Details Last Updated DateTime 03/18/2023 180.34 cm Bette Barrera [facility] 03/18/2023 10:10:57 Date Recorded Body mass index (BMI) Body weight Provider Name and Address Organization Details Last Updated DateTime 03/18/2023 19.2 kg/m2 09353.75 g Bette Barrera [facility] 10:11:03 Date Recorded Oxygen saturation Oxygen saturation in Arterial blood by Pulse oximetry Provider Name and Address Organization Details Last Updated DateTime 03/18/2023 98 % 98 % Bettegissel Barrera [place] [facility] [place] 03/18 10:11:05 Date Recorded Heart rate Provider Name an d Address Organization Details Last Updated DateTime 03/18/2023 96 /min Bette Barrera [place] [facility] 03/18/2023 10:11:07 Date Recorded Respiratory rate Provider Name a nd Address Organization Details Last Updated DateTime 03/18/2023 16 /min Bette Barrera [place] [facility] 03/18/2023 10:11:11 Date Recorded Body temperature Provider Name a nd Address Organization Details Last Updated DateTime 03/18/2023 98 [degF] Bette Bruce [place] [facility] [place] 03/18/2023 10:11:13 Date Recorded Body height Provider Name an d Address Organization Details Last Updated DateTime 05/07/2023 180.34 cm Kate Masterson MA [facility] 05/07 10:29:07 Date Recorded Heart rate Provider Name an d Address Organization Details Last Updated DateTime 05/07/2023 92 /min Kate Masterson [place] - [place] 05/07 10:31:01 Date Recorded Respiratory rate Provider Name a nd Address Organization Details Last Updated DateTime 05/07/2023 16 /min Kate Masterson [place] [facility] [place] 05/07/2023 10:31:03 Date Recorded Body temperature Provider Name a nd Address Organization Details Last Updated DateTime 05/07/2023 97.5 [degF] Kate Masterson [place] [facility] 05/07/2023 10:31:08 Date Recorded Body mass index (BMI) Body weight Provider Name and Address Organization Details Last Updated DateTime 05/07/2023 19.5 kg/m2 23237.93 g Kate Masterson [place] [facility] [place] 05/07/2023 10:31:14 Date Recorded Body height Provider Name an d Address Organization Details Last Updated DateTime 08/13/2023 180.34 cm Bette Barrera [facility] 08/13/2023 15:01:01 Date Recorded Body mass index (BMI) Body weight Provider Name and Address Organization Details Last Updated DateTime 08/13/2023 19.1 kg/m2 34900.15 g eBtte Barrera [place] 15:01:06 Date Recorded Oxygen saturation Oxygen saturation in Arterial blood by Pulse oximetry Provider Name and Address Organization Details Last Updated DateTime 08/13/2023 97 % 97 % Bettegissel Barrera [place] - [place] 08/13 15:01:11 Date Recorded Heart rate Provider Name an d Address Organization Details Last Updated DateTime 08/13/2023 110 /min Bettejermain Barrera [place] - [facility] 08/13/2023 15:01:18 Date Recorded Respiratory rate Provider Name a nd Address Organization Details Last Updated DateTime 08/13/2023 16 /min Bettejermain Barrera [place] - [facility] 08/13/2023 15:01:19 Date Recorded Body temperature Provider Name a nd Address Organization Details Last Updated DateTime 08/13/2023 98.7 [degF] Bette Bruce [place] - [facility] 08/13/2023 15:01:23 Date Recorded Body height Provider Name an d Address Organization Details Last Updated DateTime 02/20/2024 180.34 cm Bette Barrera Alanis [place] - [facility] 2023 11:22:19 Date Recorded Body mass index (BMI) Body weight Provider Name and Address Organization Details Last Updated DateTime 02/20/2024 20.5 kg/m2 49100.08 g Bette Barrrea Alanis [place] - [facility] 02/20/2024 11:22:24 Date Recorded Oxygen saturation Oxygen saturation in Arterial blood by Pulse oximetry Provider Name and Address Organization Details Last Updated DateTime 02/20/2024 97 % 97 % Bette BarreraYUEA [place] - [facility] 02/20/2024 11:22:27 Date Recorded Heart rate Provider Name an d Address Organization Details Last Updated DateTime 02/20/2024 106 /min Bette Barrera AD[place] - [facility] 2023 11:22:28 Date Recorded Respiratory rate Provider Name a nd Address Organization Details Last Updated DateTime 02/20/2024 16 /min Bette Barrera A [place] - [facility] 02/20/2024 11:22:32 Date Recorded Body temperature Provider Name a nd Address Organization Details Last Updated DateTime 02/20/2024 97.1 [degF] ADONAY George [facility] 02/20/2024 11:22:36 Date Recorded Systolic blood pressure Diastolic blood pressure Provider Name and Address Organization Details Last Updated DateTime 03/18/2023 114 mm[Hg] 80 mm[Hg] Bettegissel Barrera [facility] 02/24 10:13:32 Date Recorded Systolic blood pressure Diastolic blood pressure Provider Name and Address Organization Details Last Updated DateTime 05/07/2023 122 mm[Hg] 84 mm[Hg] Kate Masterson MA [place] - [facility] 05/07/2023 10:30:57 Date Recorded Systolic blood pressure Diastolic blood pressure Provider Name and Address Organization Details Last Updated DateTime 08/13/2023 124 mm[Hg] 88 mm[Hg] Bette Bruce [facility] 07/26 15:04:13 Date Recorded Systolic blood pressure Diastolic blood pressure Provider Name and Address Organization Details Last Updated DateTime 02/20/2024 130 mm[Hg] 86 mm[Hg] ADONAY George [place] - [facility] 02/20/2024 11:25:55 Social History Question Answer Notes LastModified by Organizat ion Details LastModified Time Tobacco Smoking Status Never Smoker ADONAY Lambert [place], [place] - [facility] 04/30/2019 09:09:31 Do You Have An Advance Directive? No Information not available 01/19/2021 What Is Your Level Of Alcohol Consumption? Occasional Information not available 06/05/2021 Are You Blind Or Do You Have Difficulty Seeing? No Glasses Information not available 05/08/2021 What Is Your Level Of Caffeine Consumption? Moderate Tea, Coffee Information not available 05/08/2021 How Much Tobacco Do You Chew? None Information not available 04/30/2019 In The 14 Days Before Symptom Onset, Have You Had Close Contact With A Laboratory-confir med COVID-19 While That Case Was Ill? No Information not available 01/19/2021 In The 14 Days Before Symptom Onset, Have You Had Close Contact With A Person Who Is Under Investigation For COVID-19 While That Person Was Ill? No Information not available 01/19/2021 Have You Been To An Area Known To Be High Risk For COVID-19? No Information not available 01/19/2021 Are You Currently Employed? Yes Information not available 01/04/2022 Are You Deaf Or Do You Have Serious Difficulty Hearing? No Information not available 01/19/2021 What Type Of Diet Are You Following? REGULAR Information not available 04/30/2019 Which Illicit Or Recreational Drugs Have You Used? None Information not available 04/30/2019 Education 12 Information no t available 06/05/2021 What Is Your Occupation? [employer] Information not available 01/04/2022 Are There Any Guns Present In Your Home? No Information not available 01/19/2021 Hard Of Hearing Or Deaf In One Or Both Ears? No Information not available 04/30/2019 Legally Blind In One Or Both Eyes? No Information no t available 04/30/2019 Marital Status Single Informatio n not available 04/30/2019 What Was The Date Of Your Most Recent Tobacco Screening? 02/20/2024 Information not available 02/20/2024 Do You Use Protection During Sex? Always Information not available 05/08/2021 What Is Your Relationship Status? Single Information not available 01/19/2021 Do You Use Your Seat Belt Or Car Seat Routinely? Yes Information not available 01/19/2021 Are You Sexually Active? Yes Information not available 05/08/2021 Do You Have Smoke And Carbon Monoxide Detectors In Your Home? Yes Information not available 01/19/2021 Are You Passively Exposed To Smoke? No Information no t available 01/19/2021 How Much Tobacco Do You Smoke? No [email or web address] Information not available 04/30/2019 General Stress Level Medium Information not available 04/30/2019 Do You Feel Stressed (tense, Restless, Nervous, Or Anxious, Or Unable To Sleep At Night)? [id number] Information not available 01/04/2022 Do You Use Any Illicit Or Recreational Drugs? No Information not available 08/13/2023 Do You Use Sunscreen Routinely? No Information not available 01/19/2021 Has Tobacco Cessation Counseling Been Provided? Yes [email or web address] Information not available 03/18/2023 On What Date Was Tobacco Cessation Counseling Provided? 02/20/2024 Information not available 02/20/2024 Do You Or Have You Ever Used Any Other Forms Of Tobacco Or Nicotine? No Information not available 01/19/2021 Sex: Male Functional Status Question Answer Note LastModified by Organization D etails LastModified Time Are you able to care for yourself? Yes Information not available 01/19/2021 What is your exercise level? Moderate Information not available 02/20/2024 Mental Status None recorded. Family History Relationship Description Onset Age of this Age Resolved Age Notes LastModified by Organization Details LastModified Time Father Cerebrovascu lar accident [email or web address] Not available 04/2019 09:08:50 Father Hypertensive disorder [email or web address] Not available 2018 09:09:14 Father Hypercholest erolemia kyoungma Not available 2018 09:09:22 Unspecified Relation Atrial fibrillation [email or web address] Not available 04/2019 09:09:07 Medical History Condition Response Coronary Artery Disease N Other N Atrial Fibrillation N High Blood Pressure N Thyroid Problems N Kidney or Bladder Problems N GI Problems Y Depression N COPD N Blood Clots N Skin Problems Y Anemia Y Heart Attack (PA) N Anxiety Disorder N Diabetes N Muscle, Joint, or Bone Problems Y Seizures/Epilepsy N Acid Reflux (GERD) Y Cancer N Stroke N Asthma N Allergies Y ADHD N Substance Abuse N High Cholesterol N Hepatitis N Liver Disease N Schizophrenia N Headaches N Heart Failure N Osteoporosis N Immunizations Vaccine Type Date Status Note Provider Name and Address Organization Details Recorded Time Influenza, split virus, quadrivalent, preservative 01/19/20 21 cancelled patient objection Marlen Irvin APN, CERTIFIED RECREATIONAL THERAPIST-C Attn: [address] [place], [address], [facility] - [facility] 01/19/2021 10:21:17 COVID-19, mRNA, LNP-S, PF, 100 mcg/0.5mL dose or 50 mcg/0.25mL dose 04/14/20 21 completed Vipin Luna [place], [place] - [facility] 04/14/2021 15:12:32 COVID-19, mRNA, LNP-S, PF, 100 mcg/0.5mL dose or 50 mcg/0.25mL dose 05/12/20 21 completed Prema Ledesma [place] [facility] 05/12/2021 16:34:31 Influenza, split virus, quadrivalent, preservative 01/04/20 22 cancelled patient objection Marlen Irvin APN, CERTIFIED RECREATIONAL THERAPIST-C Attn: [address] [facility], [place], [address], [place] - [facility] 01/04/2022 12:45:09 COVID-19, mRNA, LNP-S, PF, 100 mcg/0.5mL dose or 50 mcg/0.25mL dose 03/08/20 22 completed Erlinda Nuñez [place], [place] - [facility] 03/08/2022 12:15:10 Past Encounters Encounter ID Performer Location Encounter Start Date Encounter Closed Date Diagnosis/Indication Diagnosis SNOMED-CT Code Diagnosis ICD10 Code Diagnosis Note [id number] BECKIE Cortes (Adult Med) [address] [place] [address] 04/30/2019 08:52:49 05/01/2019 08:34:58 Atypical chest pain 147304252 R07.89 pt reports hole in back of heart but cardiologi st did not feel it needed repair. Unfortunat polo cardiologi st no longer in practice and all studies were done in office. We will see if [facility] has records. Otherwise, we will need to repeat some of those studies. Per pt. [facility] did EKG and cardiac enzymes and told it was negative. Also CBC was normal . CXR also normal. Gastroesop hageal reflux disease without esophagitis 752266296 K21.9 cont prilosec during day and add nexium samples at bedtime Dyspnea on exertion 6084 5006 R06.09 with dizziness and right eye blurred vision. We will try to get previous records from [facility] and see if cardiology workup available. recommend he find new cardiologi st. short term f/u in 2 weeks to check sxs. [id number] BECKIE Cortes (Adult Med) [address] [place] [address] 05/14/2019 08:28:54 05/15/2019 08:19:49 Atypical chest pain 528391891 R07.89 Improved. Gastroesop hageal reflux disease without esophagitis 263095246 K21.[address] scan, neg. Neg labs including H. pylori & celiac dz panel. Still poor appetite & sour stomach on bid PPI. Will try changing to omeprazole in AM, ranitidine in PM and PRN sucralfate before meals. Call in 2 weeks to see if improving. Otherwise, recommend GI referral, saw Dr. Hagan in past. [id number] Marlen Irvin APN, CECILIA Ramos (Adult Med) [address] [place] [address] 01/19/2021 09:41:43 01/21/2021 12:30:05 Adult health examination 132644339 Z00.01 Encouraged patient to eat well balanced meals, live active lifestyle and attend routine vision/den christina apts. Influenza vaccination declined 887557356 Z28.21 Gastroesop hageal reflux disease without esophagitis 017768503 K21.[address] scan, neg.Still poor appetite & sour stomach on bid PPI.recomm end GI referral in past but pt felt they did not have any answers Body mass index less than 20 999448358 Z68.1 diet advised, labs neg in past for celiac Fatigue 51332286 R53.83 labs needed Unintentio nal weight loss 420790735 R63.4 dwp labs needed, pt reports appetite is good Diverticul ar disease of colon 907183535 K57.30 needs f/u with GI but will start with CT, pt reports noise and rapid weight loss but no pain Generalize d anxiety disorder 21505755 F41.1 dwp buspar for anxiety qd but may take up to tid [id number] Marlen Irvin APN, CECILIA Ramos (Adult Med) [address] [place] [address] 02/09/2021 14:45:09 02/13/2021 16:35:17 Generalized anxiety disorder 02485899 F41.1 did not do well on buspar, only took 3 or so, stopped; pt not sure he wants med at this time, wants to focus on his medical issues, referral also offered, pt not interested at this time Gastroesop hageal reflux disease without esophagitis 194671482 K21.[address] scan, neg. Still poor appetite & sour stomach on bid PPI. recommend GI referral in past but pt felt they did not have any answers has been on ppi 20 mg qd and not helping with the amount of nsaid he is taking for his pain, advised reducing nsaid use, will increase to 40 mg History of pericarditis 5455487785 28724 Z86.79 Cardio unsure of dx, is to follow up in 3 months Chest wall pain 18285046 6 R07.89 unsure of origin of pain, discomfort , few tender points, pt also has apt planned with rheum soon-next week? Body mass index less than 20 962939239 Z68.1 diet advised, labs neg in past for celiac cont to work on eating regular meals [id number] PAT [address] 14 IM [address] [facility] [address] [place] [address] 04/14/2021 11:01:57 04/15/2021 21:12:01 Administration of SARS-CoV-2 antigen vaccine 728965661 Z23 [id number] Marlen Irvin APN, CERTIFIED RECREATIONAL THERAPIST-C Richard (Adult Med) [address] [place] [address] 05/08/2021 14:49:56 05/09/2021 07:32:59 Generalized anxiety disorder 41024514 F41.1 did not do well on buspar, only took 3 or so, stopped; pt not sure he wants med at this time, wants to focus on his medical issues, referral also offered, pt not interested at this time Gastroesop hageal reflux disease without esophagitis 750056928 K21.[address] scan, neg. Still poor appetite & sour stomach on bid PPI. recommend GI referral in past but pt felt they did not have any answers has been on ppi 20 mg qd and not helping with the amount of nsaid he is taking for his pain, advised reducing nsaid use, will increase to 40 mg History of pericarditis 7678612475 99472 Z86.79 Cardio unsure of dx, is to follow up in 3 months Chronic pain syndrome 37 9723776 G89.4 labs to be done per rheum. dwp not advised to be on penitentiary steroids, rheum will manage that pending labs Vitamin D deficiency 347 79180 E55.9 cont replacemen t [id number] PAT [facility]ates 14 IM [address] [facility] [address] [place] [address] 05/12/2021 14:53:59 05/15/2021 17:05:38 Administration of SARS-CoV-2 antigen vaccine 025623605 Z23 [id number] Marlen Irvin APN, CECILIA Ramos (Adult Med) [address] [place] [address] 06/05/2021 10:27:56 06/09/2021 09:50:48 Chronic pain syndrome 634261243 G89.4 labs to be done per rheum. dwp not advised to be on penitentiary steroids, rheum will manage that pending labs Low back pain 748072597 M54.5 has been to ortho, PT, pain mgmt and now to rheum, no relief, only relief was from steroid pack use, will send rx Drug seeking behavior 44 1912763 Z76.5 advised pt that no rx of pain meds from this office, can refer to pain mgmt or other speciality and pt declines [id number] Marlen Irvin APN, FNP-C [place] (Adult Med) [address] [place] [address] 01/04/2022 12:16:35 01/05/2022 09:48:23 Influenza vaccination declined 280309122 Z28.21 Tic 530232028 F95.9 new onset of involuntar y head movements, several times a day, not observed in office during exam, dwp labs and will refer to neuro Adult heal th examination 366635592 Z00.01 Encouraged patient to eat well balanced meals, live active lifestyle and attend routine vision/den christina apts. Visual disturbance 46707 001 H53.9 advised to see eye for check up [id number] ABRAHAM Hadley (Adult Med) [address] [facility] [place] [address] 03/08/2022 11:57:51 03/09/2022 15:19:46 Administration of SARS-CoV-2 mRNA vaccine 9409586627 Z23 [id number] Marlen Irvin APN, CECILIA Ramos (Adult Med) [address] [place] [address] 03/18/2023 10:01:52 03/21/2023 09:02:58 Adult health examination 273390642 Z00.01 Encouraged patient to eat well balanced meals, live active lifestyle and attend routine vision/den christina apts. Vitamin D deficiency 347 73606 E55.9 cont replacemen t Gastroesop hageal reflux disease without esophagitis 888214603 K21.[address] scan, neg. Still poor appetite & sour stomach on bid PPI. recommend GI referral in past but pt felt they did not have any answers has been on ppi 20 mg qd and not helping with the amount of nsaid he is taking for his pain, advised reducing nsaid use, will increase to 40 mg Cyst of or al soft tissue 807853951 K09.8 smaller than pea sized hard cyst to left sublingual area, no discharge, no ulceration advised to try sour candy like lemon drops to increase salivary gland excretions [id number] MD Richard Cummins (Adult Med) [address] [place] [address] 05/07/2023 10:25:37 05/08/2023 13:12:34 Sialoadenitis 14339630 K11.20 nothing significan t at this time follow back if it gets worse [id number] Marlen Irvin APN, CECILIA Ramos (Adult Med) [address] [facility] [place] [address] 08/13/2023 14:55:53 08/20/2023 16:04:37 Electrocardiogram abnormal 451852839 R94.31 will get holter started while he gets back into cardio, new referral sent, History of pericarditis 0073974441 59123 Z86.79 Cardio unsure of dx, is to follow up in 3 months, did not return, will refer to new cardiology group Generalize d anxiety disorder 05186142 F41.1 did not do well on buspar, only took 3 or so, stopped; pt not sure he wants med at this time, wants to focus on his medical issues, referral also offered, pt not interested at this time Dyspnea at rest 07747461 7 R06.00 cardiac related in past, dwp pft, pt wants to wait for now [id number] Marlne Irvin APN, CERTIFIED RECREATIONAL THERAPIST-C Richard (Adult Med) [address] [place] [address] 02/20/2024 11:16:32 02/21/2024 07:50:04 Dyspnea 003907830 R06.00 has not yet followed up with cardiology ,normal pft??c/o increased frequency of dyspnea episodeswi ll order chest CT Gastroesop hageal reflux disease without esophagitis 053867087 K21.[address] scan, neg. Still poor appetite & sour stomach on bid PPI. recommend GI referral in past but pt felt they did not have any answers has been on ppi 20 mg qd and not helping with the amount of nsaid he is taking for his pain, advised reducing nsaid use, will increase to 40 mg Generalize d anxiety disorder 38791195 F41.1 did not do well on buspar, only took 3 or so, stopped; pt not sure he wants med at this time, wants to focus on his medical issues, referral also offered, pt not interested at this time Depression screening 171 959412 Z13.31 depression screening positive-r epeat at followup- issues are mainly from anxiety per pt-not depression Health Concerns Section Related Observation LastModified by Organization Detai ls LastModified Time None Recorded Concern Status LastModified by Organization Details LastModified Time None Recorded Advance Directives Directive N: Payers Encounter Date Sequence Insurance Name Policy Number Policy Munoz Covered Member ID Munoz Member ID Guarantor Name 03/08/2022 1 [facility] ON OR AFTER 05/25/21 (MEDICAID REPLACEMENT - HMO) Marcello Tigre [id number] Marcello [place] 03/18/2023 1 [facility] ON OR AFTER 05/25/21 (MEDICAID REPLACEMENT - HMO) Marcello [place] [id number] Marcello [place] 05/07/[address] [facility] ON OR AFTER 05/25/21 (MEDICAID REPLACEMENT - HMO) Marcello Tigre [id number] Marcello [place] 08/13/2023 1 [facility] ON OR AFTER 21 (MEDICAID REPLACEMENT - HMO) Marcello Tigre [id number] Marcello Tigre 02/20/2024 1 [facility] - [facility] ON OR AFTER 21 (MEDICAID REPLACEMENT - HMO) Marcello [place] [id number] Marcello Tigre Notes Date Note Type Note Provider Name and Address Organization Details Recorded Time 03/18/2023 text/html here for annual exam,only concern is c/o gum issue- states its hardened under his tongue on the left side of his mouth. Dentist looked it and told him to talk to pcp Marlen Irvin APN, CERTIFIED RECREATIONAL THERAPIST-C Attn: [address] [facility], [place], [address], [facility] 03/19/2023 17:57:48 05/07/2023 text/html Pt complaining o f swelling in the floor of his mouth on the left side for 1 1/2 months. It does not swell when he eats. He feels the is slightly more full on that side. There is no pain or drainage Kike Doherty MD Attn: [address] [facility], [place], [address], [facility] 05/07/2023 10:41:54 08/13/2023 text/html ER follow up fro m chest wall pain, had abnormal ekg, finished two rounds of steroids;some gerd issueschest hurts more when he lays down or pushes back into his car seat drivingsaw cardiology in past but did not return for follow up as they did not figure out the problem Marlen Irvin APN, CERTIFIED RECREATIONAL THERAPIST-C Attn: [address] [facility], [place], [address], [facility] 08/13/2023 16:55:53 02/20/2024 text/html Pt states he had a PFT approx 5 months ago which was normal ([facility])cardio had ordered CT but wasn't approved by insurance. Does not have f/u with cardio and did not get testing donestill c/o sob and believes it is increasing in frequency Marlen Irvin, LOCKSTITCH WAISTLINE JOINER, CAROLEC Attn: [address]ing[address] [facility], [place], [address], [facility] 02/20/2024 11:49:18
--- OUTSIDE RECORDS SUMMARY | 2024-12-25 12:44 | XMS_ITS | Clinical Summary ---
Author Organization [facility] Address [address] [place] [address] Care Team Providers Care Bariatric Physician Name Role Phone Trisha, Marlen Torres NP Primary Care Provider [phone] Cesar Perez MD Unavailable Allergies Active Allergy Reactions Criticality Noted Date Comments Penicillins Unknown 08/27/2017 Medications omeprazole (PriLOSEC) 20 mg capsule Take 1 capsule (20 mg total) by mouth 2 (two) times a day 07/01/2023 Active Active Problems Problem Noted Date Diagnosed Date Chest pain 09/04/2023 PFO (patent foramen ovale) 09/04/2023 Shortness of breath 09/04/2023 Burning sensation of throat 07/02/2023 Assessment & Plan (07/02/2023 2:14 PM CDT): [place] with ppi and pain possible egd High myopia, both eyes 08/03/2022 Involuntary movements 03/06/2022 Acute idiopathic pericarditis 02/03/2021 Hip pain, bilateral 01/16/2021 Chronic bilateral low back pain with bilateral s ciatica 12/01/2020 Assessment & Plan (01/19/2021 12:08 PM UTILITY LINEMAN): Assessment: Chronic lower back pain Potential for left SI joint dysfunction Left leg radiculitis without lumbar pathology Plan: Recommended treatment is an EMG nerve conduction study of the bilateral lower extremities. He is to follow up to review the EMG. We will determine if there is any lumbar or peripheral nerve that is contributing to his ongoing left leg pain. He is getting further follow-up with regard to his weight loss and gastrointestinal issues. He is getting a CT scan of the abdomen and pelvis along with blood work. He is to let me know what he finds out from these tests. At this point I do not feel that he has any lumbar pathology contributing to his lower back and left radiating leg pain. The patient only had 1 positive test with regard to the SI joint testing, but did have some relief with the recent SI joint injection with local anesthetic. If the nerve conduction study comes back without any positive findings I would recommend that he get further workup with SI joint specialist such as Dr. [place]. Lumbar facet joint syndrome 12/01/2020 Sacroiliitis 12/01/2020 Pain in joint, multiple sites 12/01/2020 Anemia, iron deficiency 02/15/2015 Gastrointestinal hemorrhage 11/05/2014 Iron deficiency anemia due to chronic blood loss 10/24/2014 Surgical History Surgery Date Site/Laterality Comments LAPAROSCOPIC BOWEL RESECTION TONSILLECTOMY Medical History Medical History Date Comments Upper GI bleed GERD (gastroesophageal reflux disease) High myopia, both eyes Family History Medical History Relation Name Comments Stroke Father Relation Name Status Comments Father Alive Mother Alive Social History Tobacco Use Types Packs/Day Years Used Date Smoking Tobacco: Never Smokeless Tobacco: Never Tobacco Cessation:Counseling Given: Not Answered AUDIT-C Answer Date Recorded Q1: How often do you have a drink containing alc ohol? Monthly or less 02/07/2024 Average Number of Drinks Not on file 024 Frequency of Binge Drinking Not on file 01/23 PHQ-2 Answer Date Recorded PHQ-2 Total Score 1 01/19/2021 Personal Safety Answer Date Recorded Getting School Help Needed Not on file 12/05 Sex and Gender Information Value Date Recorded Sex Assigned at Not on file Legal Sex Male 1:21 PM CDT Gender Identity Male 02/02/2021 8:37 AM UTILITY LINEMAN Sexual Orientation Choose not to disclose 2020 8:37 AM UTILITY LINEMAN Obstetrics History Last Filed Vital Signs Vital Sign Reading Time Taken Comments Blood Pressure 129/82 12/27/2023 12:27 PM UTILITY LINEMAN Pulse 89 12/27/2023 12:27 PM UTILITY LINEMAN Temperature 36.8 ??C (98.2 ??F) 07/29/2023 2:18 PM CD T Respiratory Rate 18 09/04/2023 1:54 PM CDT Oxygen Saturation 96% 07/29/2023 2:18 PM CDT Inhaled Oxygen Concentration - - Weight 66.2 kg (146 lb) 12/27/2023 12:27 PM UTILITY LINEMAN Height 180.3 cm (5' 11 ) 12/27/2023 12:27 PM UTILITY LINEMAN Body Mass Index 20.36 12/27/2023 12:27 PM UTILITY LINEMAN Plan of Treatment Health Maintenance Due Date Last Done Comments Hepatitis C Screening 1989 DTaP/Tdap/Td Vaccine (1 - Tdap) 2000 Varicella Vaccines (1 of 2 - 13+ 2-dose series) 2002 Hepatitis B Screening 2007 Regular Well Visit/Exam 18-64 2007 Depression Screening 01/19/2022 01/19/2021, 01/19/2021 Covid-19 Vaccine (4 - 2023-2 5 season) 2024 03/08/2022, 05/12/2021, 04/14/2021 Influenza Vaccine (#1) 2024 5, 06/29/2014 HPV Vaccines Aged Out No longer eligi ble based on patient's age to complete this topic Pneumococcal vaccine <65 Aged Out No longer eligible based on patient's age to complete this topic Insurance [facility] Member Subscriber Plan / Payer (Ef fective 2018-Present) Name:Marcello Landeros P Relation to Subscriber:Self Name:NANCYMARCELLO P Payer ID:[id number] (NAIC) Type:MANAGED CARE OTHER Address: [address] [facility] Care Teams Bariatric Physician Relationship Specialty Start Date End Date Marlen Rico NP [address] [place] [address] PCP - General 01/19/21 Cesar Perez MD [address] [place] [address] Referring Physician Ophthalmology 08/03/22
--- OUTSIDE RECORDS SUMMARY | 2024-12-25 12:44 | XMS_ITS | Encounter Summary ---
Author Organization [facility] Address [address] [place] [address] Phone Care Team Providers Care Mobile Home Set Up Person Name Role Phone Marlen Rico NP Primary Care Provider [phone] Cesar Perez MD Unavailable [phone] Encounter Details Date Type Department Care Team (Late st Contact Info) Description 05/09/2021 Orders Only [facility] Scanning, Provider Social History Tobacco Use Types Packs/Day Years Used Date Smoking Tobacco: Never Smokeless Tobacco: Never AUDIT-C Answer Date Recorded Q1: How often do you have a drink containing alc ohol? Never 01/19/2021 Average Number of Drinks Not on file 021 Frequency of Binge Drinking Not on file 12/27 PHQ-2 Answer Date Recorded PHQ-2 Total Score 1 01/19/2021 Sex and Gender Information Value Date Recorded Sex Assigned at Not on file Legal Sex Male 1:21 PM CDT Gender Identity Male 02/02/2021 8:37 AM CARE MGR Sexual Orientation Choose not to disclose 2020 8:37 AM CARE MGR documented as of this encounter Plan of Treatment Not on file documented as of this encounter Procedures Procedure Name Priority Date/Time Associated Diagnosis Comments SCAN - LABS 05/09/2021 documented in this encounter Results * SCAN - LABS (05/09/2021) us Provider Scanning Final Result documented in this encounter Visit Diagnoses Not on filedocumented in this encounter Care Teams Mobile Home Set Up Person Relationship Specialty Start Date End Date Marlen Rico NP [address] [place] [address] PCP - General 01/19/21 Cesar Perez MD [address] [place] [address] Referring Physician Ophthalmology 08/03/22 documented as of this encounter
--- OUTSIDE RECORDS SUMMARY | 2024-12-25 12:44 | XMS_ITS | Encounter Summary ---
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
--- OUTSIDE RECORDS SUMMARY | 2024-12-25 12:44 | XMS_ITS | Continuity of Care Document ---
Author Organization [facility] Address [address] [place] [address] [place] [address] Phone Care Team Providers Care Medical Insurance Biller Name Role Phone Guy Perales MD Unavailable Unavailable Advance Directives Directive Yes / No Effective Date File Name No Information Encounters Encounter Description Practice Location Reason(s) For Visit Diagnoses Date Provider Providers Copied on Encounter [facility], [address], [place], [place], [id number], [place] tel:[phone] [facility] No Information 0 5-200 5 Angella Tovar. [address] [facility] [address], [place], [place], [id number], [place]. tel:[phone] Family History Family Member Type Diagnosis Age At Onset No Information Payers Payer name Insurance type Covered constitution party ID Authoriza tion(s) No Information Social History Type Description Quantity Date Captured Comments Sex Male Smoking Status No Information Chief Complaint And Reason For Visit No Information Reason For Referral Reason For Referral No Information History Of Present Illness Encounter Date Complaint History Of Prese nt Illness No Information Functional Status Date Functional Assessmen t No Information Instructions Date Instruction Additional Infor mation No Information Assessments Type Assessment Date No Information Patient Care Teams Name Effective Dates (start - stop) Status Members No Information
--- OUTSIDE RECORDS SUMMARY | 2024-12-25 12:44 | XMS_ITS | Referral Summary ---
Author Organization [facility] Address [address] [place] [address] Care Team Providers Care Director Of Marketing Analytics Name Role Phone Trisha, Marlen Torres NP Primary Care Provider [phone] Cesar Perez MD Unavailable [phone] Allergies Active Allergy Reactions Criticality Noted Date Comments Penicillins Unknown 08/27/2017 Medications omeprazole (PriLOSEC) 20 mg capsule Take 1 capsule (20 mg total) by mouth 2 (two) times a day 07/01/2023 Active Active Problems Problem Noted Date Diagnosed Date Chest pain 09/04/2023 PFO (patent foramen ovale) 09/04/2023 Shortness of breath 09/04/2023 Burning sensation of throat 07/02/2023 Assessment & Plan (07/02/2023 2:14 PM CDT): [place] with ppi and pain possible egd High myopia, both eyes 08/03/2022 Involuntary movements 03/06/2022 Acute idiopathic pericarditis 02/03/2021 Hip pain, bilateral 01/16/2021 Chronic bilateral low back pain with bilateral s ciatica 12/01/2020 Assessment & Plan (01/19/2021 12:08 PM BEFORE SCHOOL): Assessment: Chronic lower back pain Potential for [...] CDT Gender Identity Male 02/02/2021 8:37 AM BEFORE SCHOOL Sexual Orientation Choose not to disclose 2020 8:37 AM BEFORE SCHOOL Last Filed Vital Signs Vital Sign Reading Time Taken Comments Blood Pressure 129/82 12/27/2023 12:27 PM BEFORE SCHOOL Pulse 89 12/27/2023 12:27 PM BEFORE SCHOOL Temperature 36.8 ??C (98.2 ??F) 07/29/2023 2:18 PM CD T Respiratory Rate 18 09/04/2023 1:54 PM CDT Oxygen Saturation 96% 07/29/2023 2:18 PM CDT Inhaled Oxygen Concentration - - Weight 66.2 kg (146 lb) 12/27/2023 12:27 PM BEFORE SCHOOL Height 180.3 cm (5' 11 ) 12/27/2023 12:27 PM BEFORE SCHOOL Body Mass Index 20.36 12/27/2023 12:27 PM BEFORE SCHOOL Plan of Treatment Not on file Insurance [facility] Care Teams Director Of Marketing Analytics Relationship Specialty Start Date End Date Marlen Rico NP [address] [place] [address] PCP - General 01/19/21 Cesar Perez MD [address] [place] [address] Referring Physician Ophthalmology 08/03/22
[2024-12-25 12:59] VITALS: BP 145/99; PULSE 110; RESP 16; TEMP 36.4; O2SAT 100
--- NOTE | 2024-12-25 14:17 | ED_ITS ---
HPI - Arrhythmia/Palpitations General Chief Complaint: Arrhythmia/Palpitations <Sabina Valles PA-C - Last Filed: 12/26/24 16:43> Stated Complaint: palpitations <BECKIE Dougherty Last Filed: 12/26/24 16:43> Time Seen by Provider: 12/25/24 14:17 <Sabina Valles PA-C - Last Filed: 12/26/24 16:43> Focused HPI: This is a 34 year old male that presents to the ER for elevated heart rate. Ongoing over the last week. Reports associated chest pain, worse with lying flat. Denies fever, cough, shortness of breath. GENERAL: Well-appearing, well-nourished, and in no acute distress. HEAD: Normocephalic, atraumatic. CHEST: Clear to auscultation. ?No respiratory distress. HEART: Regular rate and rhythm.? NEURO: ?Alert and oriented x3. Patient screened in triage and initial orders placed.? ?Additional care and disposition to be based upon?diagnostic testing and treatment. <Sabina Valles PA-C - Last Filed: 12/26/24 16:43> History of Present Illness HPI narrative: Agree with the above triage note. Patient states he has a history of pericarditis and reports this feels similar. He follows with cardiology at [facility] and has no upcoming appointment next week. States he is unsure what causes his recurrent pericarditis but was told by his PCP believes he has an underlying inflammatory disease. He reports associated shortness of breath, chest pain with lying flat, palpitations. Denies cough, congestion, hemoptysis, lower extremity edema, history of VTE, anxiety, N/V/D. <Salena Redd PA-C - Last Filed: 12/25/24 21:31> Related Data Allergies/Adverse Reactions: Allergies Allergy/AdvReac Type Severity Reaction Status Date / Time amoxicillin Allergy Unknown HIVES Verified 04/06/19 14:09 <BECKIE Dougherty Last Filed: 12/26/24 16:43> Review of Systems 2 Review of Systems: All systems reviewed & are unremarkable except as noted in HPI and below <Salena Redd PA-C - Last Filed: 12/25/24 21:31> Exam 2 Narrative: GENERAL: Well-appearing, well-nourished, and in no acute distress. HEAD: Normocephalic, atraumatic. EYES: EOMI. ENT: Nares clear, no rhinorrhea or epistaxis. Mucous membranes moist. NECK: Supple. CHEST: Clear to auscultation. No respiratory distress. HEART: Regular rate and rhythm. No murmur heard. Normal peripheral pulses. ABDOMEN: Soft, nontender, nondistended, normal active bowel sounds. EXTREMITIES: Normal range of motion. No edema. Negative Homans bilaterally SKIN: Warm, dry, no rash. NEURO: No focal deficits. Alert and oriented x3 <Salena Redd PA-C - Last Filed: 12/25/24 21:31> Course DIRECTOR OF FIELD SERVICE/PA Physician Supervision For this patient encounter, I reviewed the DIRECTOR OF FIELD SERVICE or PA documentation, treatment plan, and medical decision making; and I had [id number] time with this patient. <Jose Wilson MD - Last Filed: 12/25/24 23:01> Vital Signs Vital signs: Vital Signs Temperature 97.5 F L 12/25/24 12:59 Pulse Rate 110 H 12/25/24 12:59 Respiratory Rate 16 12/25/24 12:59 Blood Pressure 145/99 H 12/25/24 12:59 Pulse Oximetry 100 12/25/24 12:59 Oxygen Delivery Room Air 12/25/24 12:59 Temperature 97.5 F L 12/25/24 12:59 Pulse Rate 89 12/25/24 21:54 Respiratory Rate 17 12/25/24 21:54 Blood Pressure 130/96 H 12/25/24 21:54 Pulse Oximetry 98 12/25/24 21:54 Oxygen Delivery Room Air 12/25/24 12:59 <Sabina Valles PA-C - Last Filed: 12/26/24 16:43> Vital Signs Temperature 97.5 F L 12/25/24 12:59 Pulse Rate 110 H 12/25/24 12:59 Respiratory Rate 16 12/25/24 12:59 Blood Pressure 145/99 H 12/25/24 12:59 Pulse Oximetry 100 12/25/24 12:59 Oxygen Delivery Room Air 12/25/24 12:59 Temperature 97.5 F L 12/25/24 12:59 Pulse Rate 89 12/25/24 21:54 Respiratory Rate 17 12/25/24 21:54 Blood Pressure 130/96 H 12/25/24 21:54 Pulse Oximetry 98 12/25/24 21:54 Oxygen Delivery Room Air 12/25/24 12:59 <Salena Redd PA-C - Last Filed: 12/25/24 21:31> Vital Signs Temperature 97.5 F L 12/25/24 12:59 Pulse Rate 110 H 12/25/24 12:59 Respiratory Rate 16 12/25/24 12:59 Blood Pressure 145/99 H 12/25/24 12:59 Pulse Oximetry 100 12/25/24 12:59 Oxygen Delivery Room Air 12/25/24 12:59 Temperature 97.5 F L 12/25/24 12:59 Pulse Rate 89 12/25/24 21:54 Respiratory Rate 17 12/25/24 21:54 Blood Pressure 130/96 H 12/25/24 21:54 Pulse Oximetry 98 12/25/24 21:54 Oxygen Delivery Room Air 12/25/24 12:59 <Jose Wilson MD - Last Filed: 12/25/24 23:01> MDM - Arrhythmia/Palpitations MDM Narrative Medical decision making narrative: 34-year-old male with history of pericarditis presents to emergency department for palpitations, chest pain with lying flat and shortness of breath for the past week. Triage vitals with tachycardia of 110 and elevated blood pressure. Heart rate is now 81. EKG shows sinus rhythm with short [place] interval of 114, normal QRS duration, normal QTC, inverted T-waves in the inferior lateral leads, changes consistent with LVH, no ST elevations or depressions. EKG unchanged from prior. CBC shows no leukocytosis or anemia. Chemistries are unremarkable. TSH within normal limits. ESR normal at 1. D-dimer less than 0.27, wells score is low risk. Mag is normal, no other electrolyte derangements. Chest x-ray shows no acute cardiopulmonary findings. Given abnormal EKG, I did consult air plant engineer, Dr. Lynn, who reassures EKG findings are consistent with LVH, not consistent with pericarditis. Feels patient does not require admission and can f/u with his air plant engineer next week at his appointment. Will provide ibuprofen for symptomatic relief. Return precautions discussed. He is agreeable to plan verbalized understanding. Discharged in stable condition. <Salena Redd PA-C - Last Filed: 12/25/24 21:31> Lab Data Result diagrams: 12/25/24 16:01 12/25/24 16:01 <Sabina Valles PA-C - Last Filed: 12/26/24 16:43> Labs: Lab Results 12/25/24 12/25/24 12/25/24 Range/Units 16:01 19:40 19:41 WBC 5.9 (4.5-10.0) K/mm3 RBC 5.17 (4.6-6.20) M/mm3 Hgb 15.6 (14.0-18.0) g/dL Hct 46.3 (42.0-52.0) % MCV 89.6 (80-100) fl MCH 30.2 (26-34) pg MCHC 33.7 (32-36) g/dl RDW 12.1 (11.5-14.5) % Plt Count 263 (150-375) k/mm3 MPV 10.2 (7.4-10.4) fl Immature Gran % (Auto) 0.5 (0-0.5) % Neut % (Auto) 67.2 (45.5-73.1) % Lymph % (Auto) 21.5 (18.3-44.2) % [place] % (Auto) 8.4 (2.6-8.5) % Eos % (Auto) 1.4 (0-4.4) % Baso % (Auto) 1.0 (0.2-1.2) % Lymph # (Auto) 1.26 (0.9-3.2) K/mm3 [place] # (Auto) 0.5 (0.1-0.6) K/mm3 Eos # (Auto) 0.1 (0-0.3) K/mm3 Baso # (Auto) 0.1 (0.0-0.1) K/mm3 Abs Immat Gran (auto) 0.03 (0.00-0.031) K/mm3 Absolute Neuts (auto) 3.9 (1.3-6.7) K/mm3 Absolute Nucleated RBC 0.000 (0.0-0.012) K/mm3 Nucleated RBC % 0.0 (0.0-0.2) % ESR 1 (0-20) mm/hr PT 13.8 (11.1-14.7) Seconds INR 1.0 APTT 28.8 (22.3-36.8) Seconds D-Dimer < 0.27 (<0.48) ug/mL Sodium 141 (137-145) mmol/L Potassium 4.3 (3.4-5.0) mmol/L Chloride 104 (98-107) mmol/L Carbon Dioxide 29 (22-30) mmol/L Anion Gap 8 (4-12) mmol/L BUN 8 L (9-20) mg/dL Creatinine 0.76 (0.7-1.3) mg/dL Estim Creat Clear Calc 114 ml/min Estimated GFR > 60 (59 - ) Glucose 97 (65-110) mg/dL Calcium 9.1 (8.4-10.2) mg/dL Magnesium 2.3 (1.6-2.3) mg/dL Total Bilirubin 0.6 (0.2-1.3) mg/dL AST 19 (17-59) U/L ALT 16 (6-50) U/L Alkaline Phosphatase 66 (38-126) U/L Troponin I < 0.012 < 0.012 (0.000-0.034) ng/mL Total Protein 8.0 (6.3-8.2) g/dL Albumin 4.6 (3.5-5.1) g/dL Lipase 62 (23-300) U/L TSH (Reflex) 0.593 (0.465-4.68) uIU/mL <Sabian Valles PA-C - Last Filed: 12/26/24 16:43> Lab Results 12/25/24 12/25/24 12/25/24 Range/Units 16:01 19:40 19:41 WBC 5.9 (4.5-10.0) K/mm3 RBC 5.17 (4.6-6.20) M/mm3 Hgb 15.6 (14.0-18.0) g/dL Hct 46.3 (42.0-52.0) % MCV 89.6 (80-100) fl MCH 30.2 (26-34) pg MCHC 33.7 (32-36) g/dl RDW 12.1 (11.5-14.5) % Plt Count 263 (150-375) k/mm3 MPV 10.2 (7.4-10.4) fl Immature Gran % (Auto) 0.5 (0-0.5) % Neut % (Auto) 67.2 (45.5-73.1) % Lymph % (Auto) 21.5 (18.3-44.2) % [place] % (Auto) 8.4 (2.6-8.5) % Eos % (Auto) 1.4 (0-4.4) % Baso % (Auto) 1.0 (0.2-1.2) % Lymph # (Auto) 1.26 (0.9-3.2) K/mm3 [place] # (Auto) 0.5 (0.1-0.6) K/mm3 Eos # (Auto) 0.1 (0-0.3) K/mm3 Baso # (Auto) 0.1 (0.0-0.1) K/mm3 Abs Immat Gran (auto) 0.03 (0.00-0.031) K/mm3 Absolute Neuts (auto) 3.9 (1.3-6.7) K/mm3 Absolute Nucleated RBC 0.000 (0.0-0.012) K/mm3 Nucleated RBC % 0.0 (0.0-0.2) % ESR 1 (0-20) mm/hr PT 13.8 (11.1-14.7) Seconds INR 1.0 APTT 28.8 (22.3-36.8) Seconds D-Dimer < 0.27 (<0.48) ug/mL Sodium 141 (137-145) mmol/L Potassium 4.3 (3.4-5.0) mmol/L Chloride 104 (98-107) mmol/L Carbon Dioxide 29 (22-30) mmol/L Anion Gap 8 (4-12) mmol/L BUN 8 L (9-20) mg/dL Creatinine 0.76 (0.7-1.3) mg/dL Estim Creat Clear Calc 114 ml/min Estimated GFR > 60 (59 - ) Glucose 97 (65-110) mg/dL Calcium 9.1 (8.4-10.2) mg/dL Magnesium 2.3 (1.6-2.3) mg/dL Total Bilirubin 0.6 (0.2-1.3) mg/dL AST 19 (17-59) U/L ALT 16 (6-50) U/L Alkaline Phosphatase 66 (38-126) U/L Troponin I < 0.012 < 0.012 (0.000-0.034) ng/mL Total Protein 8.0 (6.3-8.2) g/dL Albumin 4.6 (3.5-5.1) g/dL Lipase 62 (23-300) U/L TSH (Reflex) 0.593 (0.465-4.68) uIU/mL <Salena Redd PA-C - Last Filed: 12/25/24 21:31> Lab Results 12/25/24 12/25/24 12/25/24 Range/Units 16:01 19:40 19:41 WBC 5.9 (4.5-10.0) K/mm3 RBC 5.17 (4.6-6.20) M/mm3 Hgb 15.6 (14.0-18.0) g/dL Hct 46.3 (42.0-52.0) % MCV 89.6 (80-100) fl MCH 30.2 (26-34) pg MCHC 33.7 (32-36) g/dl RDW 12.1 (11.5-14.5) % Plt Count 263 (150-375) k/mm3 MPV 10.2 (7.4-10.4) fl Immature Gran % (Auto) 0.5 (0-0.5) % Neut % (Auto) 67.2 (45.5-73.1) % Lymph % (Auto) 21.5 (18.3-44.2) % [place] % (Auto) 8.4 (2.6-8.5) % Eos % (Auto) 1.4 (0-4.4) % Baso % (Auto) 1.0 (0.2-1.2) % Lymph # (Auto) 1.26 (0.9-3.2) K/mm3 [place] # (Auto) 0.5 (0.1-0.6) K/mm3 Eos # (Auto) 0.1 (0-0.3) K/mm3 Baso # (Auto) 0.1 (0.0-0.1) K/mm3 Abs Immat Gran (auto) 0.03 (0.00-0.031) K/mm3 Absolute Neuts (auto) 3.9 (1.3-6.7) K/mm3 Absolute Nucleated RBC 0.000 (0.0-0.012) K/mm3 Nucleated RBC % 0.0 (0.0-0.2) % ESR 1 (0-20) mm/hr PT 13.8 (11.1-14.7) Seconds INR 1.0 APTT 28.8 (22.3-36.8) Seconds D-Dimer < 0.27 (<0.48) ug/mL Sodium 141 (137-145) mmol/L Potassium 4.3 (3.4-5.0) mmol/L Chloride 104 (98-107) mmol/L Carbon Dioxide 29 (22-30) mmol/L Anion Gap 8 (4-12) mmol/L BUN 8 L (9-20) mg/dL Creatinine 0.76 (0.7-1.3) mg/dL Estim Creat Clear Calc 114 ml/min Estimated GFR > 60 (59 - ) Glucose 97 (65-110) mg/dL Calcium 9.1 (8.4-10.2) mg/dL Magnesium 2.3 (1.6-2.3) mg/dL Total Bilirubin 0.6 (0.2-1.3) mg/dL AST 19 (17-59) U/L ALT 16 (6-50) U/L Alkaline Phosphatase 66 (38-126) U/L Troponin I < 0.012 < 0.012 (0.000-0.034) ng/mL Total Protein 8.0 (6.3-8.2) g/dL Albumin 4.6 (3.5-5.1) g/dL Lipase 62 (23-300) U/L TSH (Reflex) 0.593 (0.465-4.68) uIU/mL <Jose Wilson MD - Last Filed: 12/25/24 23:01> Imaging Data Radiologist's impression: ITS Impressions Chest X-Ray 12/25/24 14:50 IMPRESSION: 1: NO ACUTE CARDIOPULMONARY DISEASE. <BECKIE Dougherty Last Filed: 12/26/24 16:43> Critical Care Time Critical Care Time Critical Care Time: No <BECKIE Dougherty Last Filed: 12/26/24 16:43> Discharge Plan Discharge Clinical Impression: Atypical chest pain, Palpitations <Sabina Valles PA-C - Last Filed: 12/26/24 16:43> Patient Disposition: Home, Self-Care <BECKIE Dougherty Last Filed: 12/26/24 16:43> Condition: Stable <BECKIE Dougherty Last Filed: 12/26/24 16:43> Instructions: Antibiotic Form, Chest Pain (DC), Heart Palpitations (DC) <BECKIE Dougherty Last Filed: 12/26/24 16:43> Additional Instructions: Please take ibuprofen as needed for chest pain and follow-up with your air plant engineer. Return to the emergency department if you develop new or worsening symptoms, loss of consciousness or other concerning symptoms. <BECKIE Dougherty Last Filed: 12/26/24 16:43> Patient Language: Togolese <Sabina Valles PA-C - Last Filed: 12/26/24 16:43> Prescriptions: New ibuprofen 800 mg tablet 800 mg PO TID PRN (Reason: pain) Qty: 20 0RF No Action methylprednisolone [Medrol (Dylon)] 4 mg tablets,dose pack See Rx Instructions .ROUTE .COMPLEX Qty: 21 0RF Rx Instructions: orally per package directions <Sabina Valles PA-C - Last Filed: 12/26/24 16:43> Follow-up/Referrals: Rico,Marlen Desai APN [Primary Care Provider] - <BECKIE Dougherty Last Filed: 12/26/24 16:43>
--- OUTSIDE RECORDS SUMMARY | 2024-12-25 14:49 | XMS_ITS | Encounter Summary ---
Author Organization [facility] Healthcare Address [address] [place] [address] Care Team Providers Care Cuff Slitter Name Role Phone Marlen Rico NP Primary Care Provider [phone] Cesar Perez MD Unavailable [phone] Encounter Details Date Type Department Care Team (Late st Contact Info) Description 01/25/2021 Telephone [facility] - Imaging [address] [place] [address] Transcribed Order, Provider Social History [...] CDT Gender Identity Male 02/02/2021 8:37 AM ATTENDANT [employer] Sexual Orientation Choose not to disclose 2020 8:37 AM ATTEND[employer] documented as of this encounter Plan of Treatment Not on file documented as of this encounter Visit Diagnoses Not on filedocumented in this encounter Care Teams Cuff Slitter Relationship Specialty Start Date End Date Marlen Rico NP [address] [place] [address] PCP - General 01/19/21 Cesar Perez MD [address] [place] [address] Referring Physician Ophthalmology 08/03/22 documented as of this encounter
--- OUTSIDE RECORDS SUMMARY | 2024-12-25 14:49 | XMS_ITS | Clinical Summary ---
Author Organization [facility] Address [address] [place] [address] Care Team Providers Care Contracting Engineer Name Role Phone Trisha, Marlen Torres NP Primary Care Provider [phone] Cesar Perez MD Unavailable [phone] Allergies Active Allergy Reactions Criticality Noted Date Comments Penicillins Unknown 08/27/2017 Medications omeprazole (PriLOSEC) 20 mg capsule Take 1 capsule (20 mg total) by mouth 2 (two) times a day 07/01/2023 Active Active Problems Problem Noted Date Diagnosed Date Chest pain 09/04/2023 PFO (patent foramen ovale) 09/04/2023 Shortness of breath 09/04/2023 Burning sensation of throat 07/02/2023 Assessment & Plan (07/02/2023 2:14 PM CDT): [place] with ppi and pain possible egd High myopia, both eyes 08/03/2022 Involuntary movements 03/06/2022 Acute idiopathic pericarditis 02/03/2021 Hip pain, bilateral 01/16/2021 Chronic bilateral low back pain with bilateral s ciatica 12/01/2020 Assessment & Plan (01/19/2021 12:08 PM DATA ENTRY): Assessment: Chronic lower back pain Potential for [...] CDT Gender Identity Male 02/02/2021 8:37 AM DATA ENTRY Sexual Orientation Choose not to disclose 2020 8:37 AM DATA ENTRY Obstetrics History Last Filed Vital Signs Vital Sign Reading Time Taken Comments Blood Pressure 129/82 12/27/2023 12:27 PM DATA ENTRY Pulse 89 12/27/2023 12:27 PM DATA ENTRY Temperature 36.8 ??C (98.2 ??F) 07/29/2023 2:18 PM CD T Respiratory Rate 18 09/04/2023 1:54 PM CDT Oxygen Saturation 96% 07/29/2023 2:18 PM CDT Inhaled Oxygen Concentration - - Weight 66.2 kg (146 lb) 12/27/2023 12:27 PM DATA ENTRY Height 180.3 cm (5' 11 ) 12/27/2023 12:27 PM DATA ENTRY Body Mass Index 20.36 12/27/2023 12:27 PM DATA ENTRY Plan of Treatment Health Maintenance Due Date [...] patient's age to complete this topic Insurance [facility] Member Subscriber Plan / Payer (Ef fective 2018-Present) Name:Marcello Landeros P Relation to Subscriber:Self Name:NANCYMARCELLO P Payer ID:[id number] (NAIC) Type:MANAGED CARE OTHER Address: [address] [facility] Care Teams Contracting Engineer Relationship Specialty Start Date End Date Marlen Rico NP [address] [place] [address] PCP - General 01/19/21 Cesar Perez MD [address] [place] [address] Referring Physician Ophthalmology 08/03/22
--- OUTSIDE RECORDS SUMMARY | 2024-12-25 14:49 | XMS_ITS | Referral Summary ---
Author Organization [facility] Address [address] [place] [address] Care Team Providers Care Central Melt Specialist Name Role Phone Trisha, Marlen Torres NP Primary Care Provider [phone] Cesar Perez MD Unavailable [phone] Allergies Active Allergy Reactions Criticality Noted Date Comments Penicillins Unknown 08/27/2017 Medications omeprazole (PriLOSEC) 20 mg capsule Take 1 capsule (20 mg total) by mouth 2 (two) times a day 07/01/2023 Active Active Problems Problem Noted Date Diagnosed Date Chest pain 09/04/2023 PFO (patent foramen ovale) 09/04/2023 Shortness of breath 09/04/2023 Burning sensation of throat 07/02/2023 Assessment & Plan (07/02/2023 2:14 PM CDT): [place] with ppi and pain possible egd High myopia, both eyes 08/03/2022 Involuntary movements 03/06/2022 Acute idiopathic pericarditis 02/03/2021 Hip pain, bilateral 01/16/2021 Chronic bilateral low back pain with bilateral s ciatica 12/01/2020 Assessment & Plan (01/19/2021 12:08 PM [employer]SCM DEVELOPER): Assessment: Chronic lower back pain Potential for [...] CDT Gender Identity Male 02/02/2021 8:37 AM [employer] DEVELOPER Sexual Orientation Choose not to disclose 2020 8:37 AM [employer]SC[employer] DEVELOPER Last Filed Vital Signs Vital Sign Reading Time Taken Comments Blood Pressure 129/82 12/27/2023 12:27 PM [employer]SC[employer] DEVELOPER Pulse 89 12/27/2023 12:27 PM [employer] DEVELOPER Temperature 36.8 ??C (98.2 ??F) 07/29/2023 2:18 PM CD T Respiratory Rate 18 09/04/2023 1:54 PM CDT Oxygen Saturation 96% 07/29/2023 2:18 PM CDT Inhaled Oxygen Concentration - - Weight 66.2 kg (146 lb) 12/27/2023 12:27 PM [employer] FSCM DEVELOPER Height 180.3 cm (5' 11 ) 12/27/2023 12:27 PM [employer] FSCM DEVELOPER Body Mass Index 20.36 12/27/2023 12:27 PM [employer] FSCM DEVELOPER Plan of Treatment Not on file Insurance [facility] Care Teams Central Melt Specialist Relationship Specialty Start Date End Date Marlen Rico NP [address] [place] [id number] PCP - General 01/19/21 Cesar Perez MD [address] [place] [address] Referring Physician Ophthalmology 08/03/22
--- OUTSIDE RECORDS SUMMARY | 2024-12-25 14:49 | XMS_ITS | Patient Health Summary ---
Author Organization [facility] Address [address] [place] [address] Care Team Providers Care Visual Lead Name Role Phone Marlen Rico HATTIE-CIVIL DRAFTING TECHNICIAN Primary Care Provider [phone] Note from [facility],non-owned Affiliates and Associated Physician Practices is amultiple site organization consisting of ambulatory clinics and hospital sitesin [place], [place], [place] and [place]. This disclosure is being madepursuant to the Care Everywhere program and may not contain all information available regarding this patient. Last updated 18.[facility] [employer] Allergies * Amoxicillin(Unknown) * Penicillins(Unknown) Medications * [...] on 04/28/2019 10:00 AM . Gissel George HOUSE PAINTER [facility] [facility] DIAGNOSTIC IMAGING ORDERABLES * TROPONIN I (04/27/2019 9:21 PM CDT) Only the most recent of3 resultswithin the time period is included. Troponin I <0.010 <0.032 ng/mL 04/27/2019 9:49 PM CDT [facility] Blood BLOOD SPECIMEN / Unknown Venipuncture / Unknown 04/27/2019 9:21 PM CDT 04/27/2019 9:23 PM CDT Yokasta Ruggiero MD LAB - CHEMISTRY JARRED HOOPER [facility] Organization Address City/State/ZIP Co de Phone Number [address] [phone] * (ABNORMAL) CBC W AUTO DIFFERENTIAL (04/27/2019 4:15 PM CDT) Only the most recent of53 resultswithin the time period is included. WBC 8.2 3.5 - 10.5 10? 3 /uL 04/27/2019 4:21 PM [facility] RBC 5.25 4.30 - 5.70 10? 6 /uL 04/27/2019 4:21 PM [facility] Hemoglobin 15.6 13.5 - 17.5 g/dL 04/27/2019 4:21 PM [facility] Hematocrit 45.8 39.0 - 50.0 % 04/27/2019 4:21 PM [facility] MCV 87.2 81.0 - 97.0 fL 04/27/2019 4:21 PM [facility] MCH 29.7 28.0 - 34.0 pg 04/27/2019 4:21 PM [facility] MCHC 34.1 32.0 - 36.0 g/dL 04/27/2019 4:21 PM [facility] Platelet Count 255 150 - 400 10? 3 /uL 04/27/2019 4:21 PM [facility] RDW-SD 39.0 36.0 - 50.0 fL 04/27/2019 4:21 PM [facility] RDW-CV 12.0 11.2 - 14.8 % 04/27/2019 4:21 PM [facility] MPV 10.1 9.3 - 12.8 fL 04/27/2019 4:21 PM [facility] nRBC Absolute 0.00 0 10? 3 /uL 04/27/2019 4:21 PM [facility] nRBC Auto 0.0 0 /100 WBC 04/27/2019 4:21 PM [facility] Neutrophils % 72.8(H) 35.0 - 70.0 % 04/27/2019 4:21 PM [facility] Lymphocytes % 17.2(L) 19.7 - 55.1 % 04/27/2019 4:21 PM CDT [facility] Monocytes % 7.9 3.0 - 15.0 % 04/27/2019 4:21 PM [facility] Eosinophils % 0.9 0.0 - 6.0 % 04/27/2019 4:21 PM [facility] Basophil % 1.0 0.0 - 1.5 % 04/27/2019 4:21 PM [facility] Neutrophils Absolute 6.0 1.6 - 7.0 10? 3 /uL 04/27/2019 4:21 PM [facility] Lymphocyte Absolute 1.4 0.8 - 2.9 10? 3 /uL 04/27/2019 4:21 PM [facility] Monocytes Absolute 0.65 0.14 - 0.66 10? 3 /uL 04/27/2019 4:21 PM [facility] Eosinophils Absolute 0.07 0.00 - 0.45 10? 3 /uL 04/27/2019 4:21 PM [facility] Basophils Absolute 0.08(H) 0.00 - 0.06 10? 3 /uL 04/27/2019 4:21 PM [facility] Immature Granulocytes % 0.2 0.0 - 1.0 % 04/27/2019 4:21 PM [facility] Blood BLOOD SPECIMEN / Unknown Venipuncture / Unknown 04/27/2019 4:15 PM CDT 04/27/2019 4:18 PM CDT Yokasta Ruggiero MD LAB - HEMATOLOGY ORD ERABLES [facility] [address] [phone] * COMPREHENSIVE METABOLIC PANEL (04/27/2019 4:15 PM CDT) Only the most recent of12 resultswithin the time period is included. BUN 11 7 - 26 mg/dL 04/27/2019 4:48 PM [facility] Creatinine 1.0 0.6 - 1.2 mg/dL 04/27/2019 4:48 PM [facility] Sodium 141 136 - 145 mmol/L 04/27/2019 4:48 PM [facility] Potassium 3.8 3.5 - 4.5 mmol/L 04/27/2019 4:48 PM [facility] Chloride 106 98 - 107 mmol/L 04/27/2019 4:48 PM [facility] CO2 28 22 - 29 mmol/L 04/27/2019 4:48 PM [facility] Glucose 109 70 - 115 mg/dL 04/27/2019 4:48 PM [facility] Calcium 9.8 8.4 - 10.2 mg/dL 04/27/2019 4:48 PM [facility] Protein Total 7.6 6.0 - 8.3 g/dL 04/27/2019 4:48 PM [facility] Albumin 4.4 3.4 - 5.0 g/dL 04/27/2019 4:48 PM [facility] Bilirubin Total 0.5 0.2 - 1.2 mg/dL 04/27/2019 4:48 PM [facility] Alkaline Phosphatase 70 40 - 150 Units/L 04/27/2019 4:48 PM [facility] ALT 13 0 - 55 Units/L 04/27/2019 4:48 PM [facility] AST 12 5 - 34 Units/L 04/27/2019 4:48 PM [facility] Anion Gap 11 8 - 18 04/27/2019 4:48 PM [facility] BUN/Creatinine Ratio 11 7 - 23 04/27/2019 4:48 PM [facility] Osmolality Calculated 292 270 - 300 mOsm/kg 04/27/2019 4:48 PM [facility] Albumin/Globulin Ratio 1.4 1.1 - 2.3 04/27/2019 4:48 PM [facility] eGFR >60 >60 mL/min/1.7 3 m2 04/27/2019 4:48 PM [facility] Blood BLOOD SPECIMEN / Unknown Venipuncture / Unknown 04/27/2019 4:15 PM CDT 04/27/2019 4:18 PM [facility] Yokasta Ruggiero MD LAB - CHEMISTRY JARRED HOOPER [facility] Organization Address City/State/ZIP Co de Phone Number [facility] [address] [phone] * EKG 12-LEAD (04/27/2019 4:03 PM CDT) Only the most recent of5 resultswithin the time period is included. Ventricular Rate 89 BPM [facility] Atrial Rate 89 BPM [facility] P-R Interval 100 ms [facility] QRS Duration ms 88 ms [facility] Q-T Interval ms 340 ms [facility] QTC Calculation (Bezet) 413 ms [facility] Calculated P [place] 89 degrees [facility] Calculated R [place] 88 degrees [facility] Calculated T [place] -7 degrees [facility] Interpretation EKG SINUS RHYTHM WITH SHORT IL RSR' OR QR PATTERN IN V1 SUGGESTS RIGHT VENTRICULAR CONDUCTION DELAY T WAVE ABNORMALITY, CONSIDER INFERIOR ISCHEMIA ABNORMAL ECG NO PREVIOUS ECGS AVAILABLE Confirmed by Gema Reardon, Kendy ([id number]), editorial writer Adryan Moore ([id number]) on 05/05/2019 10:31:10 PM [facility] 04/27/2019 4:03 PM CDT 05/05/2019 10:31 PM CDT Yokasta Ruggiero MD ECG ORDERABLES [facility] * EVENT MONITOR (01/07/2015 9:27 AM EQUAL OPPORTUNITY OFFICER) Narrative [facility] - 01/07/2015 9:27 AM EQUAL OPPORTUNITY OFFICER Marcello Wyattd underwent cardiac monitoring with a [...] Bruce High CD CARDIAC SERVICES ORD ERABLES [facility] * ECHO SMIAT TRANSESOPHAGEAL (12/24/2014 12:00 AM EQUAL OPPORTUNITY OFFICER) Anatomical Region Laterality Modality Other 12/24/2014 Owen Thomason MD ECHOCARDIOGRAPHY RAD IANT * PROC ECHOCARDIOGRAM COMP W BUBBLE STUDY (12/07/2014 2:09 PM EQUAL OPPORTUNITY OFFICER) Narrative [facility] - 12/07/2014 2:09 PM EQUAL OPPORTUNITY OFFICER NAME: Marcello Landeros : 1990 AGE: 24 y.o. SEX: male Referring Physician: Owen Thomason MD [address] [facility] [address] [place] [address] Ordering Physician: Dr. Thomason Primary Care Physician: Garfield Chowdhury Date of Test: 12/06/14 TAPE#: ?? Government Contracts Manager: JADE Height: 5' 11 (180.3 cm) Weight: [...] Referring Physician: Owen Thomason MD [address] [facility] [address] [place] [address] Ordering Physician: Dr. Thomason Primary Care Physician: Garfield Chowdhury Date of Test: 12/06/14 TAPE#: Government Contracts Manager: JADE Height: 5' 11 (180.3 cm) Weight: [...] Thomason MD ECG ORDERABLES Performing Organization Address City/[facility] Co de Phone Number [facility] * PHOSPHORUS BLOOD (11/13/2014 5:10 AM EQUAL OPPORTUNITY OFFICER) Only the most recent of9 resultswithin the time period is included. Phosphorus 3.2 2.3 - 4.7 mg/dL [facility] Blood specimen (specimen) BLOOD SPECIMEN / Unknown 11/13/2014 5:10 AM EQUAL OPPORTUNITY OFFICER 11/13/2014 5:54 AM EQUAL OPPORTUNITY OFFICER Neli Goff MD LAB - CHEMISTRY JARRED HOOPER Performing Organization Address City/[facility]/ZIP Co de Phone Number [address] [phone] * MAGNESIUM BLOOD (11/13/2014 5:10 AM EQUAL OPPORTUNITY OFFICER) Only the most recent of9 resultswithin the time period is included. Magnesium 1.8 1.6 - 2.6 mg/dL [facility] Blood specimen (specimen) BLOOD SPECIMEN / Unknown 11/13/2014 5:10 AM EQUAL OPPORTUNITY OFFICER 11/13/2014 5:54 AM EQUAL OPPORTUNITY OFFICER Neli Goff MD LAB - CHEMISTRY JARRED HOOPER [address] [phone] * XR ABDOMEN KUB PORTABLE (11/10/2014 5:37 PM EQUAL OPPORTUNITY OFFICER) Only the most recent of2 resultswithin the time period is included. Anatomical Region Laterality Modality Other Impressions 11/12/2014 8:41 AM EQUAL OPPORTUNITY OFFICER Impression: Free air, likely secondary to recent abdominal procedure. Multiple dilated loops of small bowel, differential diagnosis in the setting is ileus versus bowel obstruction. Preliminary findings were discussed with the patient's nurse by Dr. Simons on 11/11/2014 at 6:20 PM. Dictated by Tristen Simons M.D. (radiology interventional physician) This report was approved ??by Tristen Simons ?? on 11/12/2014 7:56 AM . I, Dr. LUBNA IVY M.D. have personally reviewed and interpreted this examination/study. This report was electronically signed by LUBNA IVY M.D. ??on 11/12/2014 8:41 AM . Narrative 11/12/2014 8:41 AM EQUAL OPPORTUNITY OFFICER Exam: Portable supine Abdominal X-ray, 2 view Date: 11/10/2014 5:37 PM History: Abdominal pain Comparison: 11/05/2014 at 4:44 AM Findings: A linear metallic body is superimposed on the right side of the abdomen. The two linear metallic bodies seen superimposed on the mid pelvis in the previous exam are not visualized. [place] are seen overlying the right lower abdomen. [...] 6:20 PM. Dictated by Tristen Simons M.D. (radiology interventional physician) This report was approved by Tristen Simons on 11/12/2014 7:56 AM . I, Dr. LUBNA IVY M.D. have personally reviewed and interpreted thisexamination/study. This report was electronically signed by LUBNA IVY M.D. on 11/12/20148:41 AM . Neli Goff MD DIAGNOSTIC IMAGING O RDERABLES * (ABNORMAL) RBC MORPHOLOGY (11/10/2014 5:02 AM EQUAL OPPORTUNITY OFFICER) Only the most recent of8 resultswithin the time period is included. Anisocytosis 1+(A) None [facility] Ovalocytes 1+(A) None [facility] Tear Drop Cells Rare(A) None [facility] Blood specimen (specimen) BLOOD SPECIMEN / Unknown 11/10/2014 5:02 AM EQUAL OPPORTUNITY OFFICER 11/10/2014 6:47 AM EQUAL OPPORTUNITY OFFICER Neli Goff MD LAB - HEMATOLOGY ORD ERABLES [address] [phone] * TSH (11/10/2014 5:02 AM EQUAL OPPORTUNITY OFFICER) TSH 2.997 0.350 - 4.940 uIU/mL [facility] Blood specimen (specimen) BLOOD SPECIMEN / Unknown 11/10/2014 5:02 AM EQUAL OPPORTUNITY OFFICER 11/10/2014 5:52 AM EQUAL OPPORTUNITY OFFICER Neli Goff MD LAB - CHEMISTRY JARRED HOOPER Performing Organization Address City/[facility]/ZIP Co de Phone Number [address] [phone] * T4 FREE (11/10/2014 5:02 AM EQUAL OPPORTUNITY OFFICER) T4 Free 1.3 0.7 - 1.5 ng/dL [facility] Blood specimen (specimen) BLOOD SPECIMEN / Unknown 11/10/2014 5:02 AM EQUAL OPPORTUNITY OFFICER 11/10/2014 5:52 AM EQUAL OPPORTUNITY OFFICER Neli Goff MD LAB - CHEMISTRY JARRED HOOPER Performing Organization Address City/[facility] Co de Phone Number [address] [phone] * PATHOLOGY TISSUE (11/08/2014 5:53 PM EQUAL OPPORTUNITY OFFICER) Only the most recent of2 resultswithin the [...] were determined by the [facility].?? Some of these tests were developed by [...] by Ashely Gao MD. Electronically signed 11/16/2014 [facility] PATHOLOGY LAB ([place]) Other (qualifier value) 11/08/2014 5:53 PM EQUAL OPPORTUNITY OFFICER 11/09/2014 7:49 AM EQUAL OPPORTUNITY OFFICER Narrative [facility] ([facility]) - 11/16/2014 2:57 PM EQUAL OPPORTUNITY OFFICER Collection Date->11/08/14 Collection Time-> 5:53 PM Specimen A->Small Bowel, NOS Small bowel stich marked proximal, perm path Neli Goff MD LAB - PATHOLOGY/CYTO LOGY ORDERABLES [facility] ([facility]) * (ABNORMAL) CBC W/O DIFFERENTIAL (11/08/2014 1:33 PM EQUAL OPPORTUNITY OFFICER) Only the most recent of5 resultswithin the time period is included. WBC 4.2 3.5 - 10.5 10? 3 /uL [facility] RBC 3.71(L) 4.30 - 5.70 10? 6 /uL [facility] Comment:All CBC parameters h ave been checked. Hemoglobin 10.9(L) 13.5 - 17.5 g/dL [facility] Hematocrit 33.2(L) 39.0 - 50.0 % [facility] MCV 89.5 81.0 - 97.0 fL [facility] MCH 29.4 28.0 - 34.0 pg [facility] MCHC 32.8 32.0 - 36.0 g/dL [facility] Platelet Count 311 150 - 400 10? 3 /uL [facility] Comment: Platelet count verified by slide exam This is an appended report. ??These results have been appended to a previously preliminary verified report. RDW-SD 54.7(H) 36.0 - 50.0 fL [facility] RDW-CV 16.8(H) 11.2 - 14.8 % [facility] MPV 10.1 9.3 - 12.8 fL [facility] nRBC Absolute 0.00 0 10? 3 /uL [facility] nRBC Auto 0.0 0 /100 WBC [facility] Blood specimen (specimen) BLOOD SPECIMEN / Unknown 11/08/2014 1:33 PM EQUAL OPPORTUNITY OFFICER 11/08/2014 1:35 PM EQUAL OPPORTUNITY OFFICER Isabela Leyva MD LAB - HEMATOLOGY ORD ERABLES [facility] [address] [phone] * (ABNORMAL) PT-INR [facility] (11/08/2014 5:55 AM EQUAL OPPORTUNITY OFFICER) Only the most recent of6 resultswithin the time period is included. PT 17.1(H) 12.1 - 14.8 Seconds [facility] INR 1.4 See Comment [facility] Comment: Suggested therapeutic range for low-intensity coumadin therapy for venous thromboembolism prophylaxis is an INR of 2.0-3.0. ??For high risk patients (Mitral Valve Prosthesis, Atrial Fibrillation, history of TIA/stroke), suggested prophylactic therapeutic range is an INR of 2.5-3.5. Blood specimen (specimen) BLOOD SPECIMEN / Unknown 11/08/2014 5:55 AM EQUAL OPPORTUNITY OFFICER 11/08/2014 6:37 AM EQUAL OPPORTUNITY OFFICER Narrative [facility] - 11/08/2014 7:04 AM EQUAL OPPORTUNITY OFFICER Is patient on Heparin, Argatroban or Dabigatran?->N Alvin Helm MD LAB - COAGULATI ON ORDERABLES [address] [phone] * CROSSMATCH RBC LEUKOREDUCED (11/07/2014 8:51 PM EQUAL OPPORTUNITY OFFICER) Only the most recent of6 resultswithin the time period is included. Unit RBC-WBCD [id number] transfused [facility] (BEAKER) Unit ABO O [facility] (BEAKER) Unit Rh POS [facility] (BEAKER) Unit Number [id number] [facility] (BEAKER) Unit Status Transfused [facility] B[facility] OD [facility] (BEAKER) Unit RBC-WBCD [id number] transfused [facility] (BEAKER) Unit ABO O [facility] (BEAKER) Unit Rh POS [facility] (BEAKER) Unit Number [id number] [facility] (BEAKER) Unit Status Transfused [facility] BLO OD BANK PRODUCTS (BEAKER) 11/07/2014 8:51 PM EQUAL OPPORTUNITY OFFICER 11/07/2014 10:07 PM EQUAL OPPORTUNITY OFFICER Narrative [facility] (BEAKER) - 11/07/2014 8:51 PM EQUAL OPPORTUNITY OFFICER # of Units->2 Alvin Helm MD LAB - BLOOD BAN K ORDERABLES [facility] (BEAKER) * TYPE + SCREEN PANEL (11/07/2014 8:51 PM EQUAL OPPORTUNITY OFFICER) Only the most recent of5 resultswithin the time period is included. Typem O POS [facility] Antibody Screen NEG [facility] Blood specimen (specimen) 11/07/2014 8:51 PM EQUAL OPPORTUNITY OFFICER 11/07/2014 10:07 PM EQUAL OPPORTUNITY OFFICER Mario Yusuf MD LAB - BLOOD BANK ORD ERABLES Performing Organization Address [facility] Co de Phone Number [facility] [address] [place] [address] * PTT [facility] (11/06/2014 3:49 AM EQUAL OPPORTUNITY OFFICER) Only the most recent of3 resultswithin the time period is included. APTT 29.9 23.0 - 38.4 Seconds [facility] Comment:Suggested therapeuti c range for full dose I.V. heparin therapy for venous thromboembolism is 66.0-91.0 seconds. Blood specimen (specimen) BLOOD SPECIMEN / Unknown 11/06/2014 3:49 AM EQUAL OPPORTUNITY OFFICER 11/06/2014 3:49 AM EQUAL OPPORTUNITY OFFICER Narrative [facility] - 11/06/2014 4:15 AM EQUAL OPPORTUNITY OFFICER Is patient on Heparin, Argatroban or Dabigatran?->N Alvin Helm MD LAB - COAGULATI ON ORDERABLES Performing Organization Address [facility] Co de Phone Number [address] [phone] * GLUCOSE ACCUCHECK (11/05/2014 6:48 AM EQUAL OPPORTUNITY OFFICER) Only the most recent of2 resultswithin the time period is included. Glucose, Fingerstick 92 70-115mg/d L mg/dL [facility] RALS (BEAKER) Comment:Painter Chassis: LUIS MARTÍNEZ 11/05/2014 6:48 AM EQUAL OPPORTUNITY OFFICER Alvin Helm MD LAB - CHEMISTRY ORDERABLES [facility] ST[facility] ([place]) * URINALYSIS W/MICROSCOPIC NO CULTURE (11/05/2014 6:42 AM EQUAL OPPORTUNITY OFFICER) Color UA Yellow Straw, Yellow, Colorless, Light Yellow [facility] Clarity UA Clear Clear [facility] Specific [place] UA 1.016 1.001 - 1.030 [facility] pH UA 5.5 5.0 - 8.0 [facility] Protein UA Negative <=20 mg/dL [facility] Glucose UA Negative Negative mg/dL [facility] Ketone UA Negative Negative mg/dL [facility] Bilirubin UA Negative Negative mg/dL [facility] Blood UA Negative Negative [facility] Nitrite UA Negative Negative [facility] Leukocyte Esterase Negative Negative [facility] Urobilinogen UA <2.0 <2.0 mg/dL [facility] RBC UA <1 0 - 8 /HPF [facility] WBC UA 1 0 - 2 /HPF [facility] Urine specimen (specimen) 11/05/2014 6:42 AM EQUAL OPPORTUNITY OFFICER 11/05/2014 7:02 AM EQUAL OPPORTUNITY OFFICER Alvin Helm MD LAB - URINALYSI S ORDERABLES Performing Organization Address [facility]/ZIP Co de Phone Number [address] [phone] * CULTURE URINE (11/05/2014 6:42 AM EQUAL OPPORTUNITY OFFICER) Culture Urine Less than 10,000 CFU/ML of Normal Urogenital/ Skin Mely [facility] Comment:. Urine specimen (specimen) URINE SPECIMEN OBTAINED BY CLEAN CATCH PROCEDURE / Unknown 11/05/2014 6:42 AM EQUAL OPPORTUNITY OFFICER 11/05/2014 7:02 AM EQUAL OPPORTUNITY OFFICER Narrative [facility] - 11/07/2014 12:20 PM EQUAL OPPORTUNITY OFFICER Specimen Type->Urine Alvin Helm MD LAB - MICROBIOL OGY ORDERABLES [address] [phone] * FIBRINOGEN ACTIVITY (11/05/2014 4:54 AM EQUAL OPPORTUNITY OFFICER) Fibrinogen Clauss 219 170 - 400 mg/dL [facility] Blood specimen (specimen) BLOOD SPECIMEN / Unknown 11/05/2014 4:54 AM EQUAL OPPORTUNITY OFFICER 11/05/2014 4:59 AM EQUAL OPPORTUNITY OFFICER Alvin Helm MD LAB - COAGULATI ON ORDERABLES [address] [phone] * LIPASE BLOOD (11/05/2014 4:54 AM EQUAL OPPORTUNITY OFFICER) Pathologist [facility] Lipase 19 8 - 78 Units/L [facility] Blood specimen (specimen) BLOOD SPECIMEN / Unknown 11/05/2014 4:54 AM EQUAL OPPORTUNITY OFFICER 11/05/2014 4:59 AM EQUAL OPPORTUNITY OFFICER Alvin Helm MD LAB - CHEMISTRY ORDERABLES Performing Organization Address City/[facility]/ZIP Co de Phone Number [address] [phone] * LACTIC ACID BLOOD (11/05/2014 4:54 AM EQUAL OPPORTUNITY OFFICER) Pathologist [facility] Lactic Acid-Stat 0.7 0.5 - 2.2 mmol/L [facility] Blood specimen (specimen) BLOOD SPECIMEN / Unknown 11/05/2014 4:54 AM EQUAL OPPORTUNITY OFFICER 11/05/2014 5:00 AM EQUAL OPPORTUNITY OFFICER Alvin Helm MD LAB - CHEMISTRY ORDERABLES Performing Organization Address City/[facility]/ZIP Co de Phone Number [address] [phone] * (ABNORMAL) CK + CKMB PANEL (11/05/2014 4:54 AM EQUAL OPPORTUNITY OFFICER) Pathologist [facility] CK Total 20(L) 30 - 200 Units/L [facility] CK-MB 0.3 0.0 - 6.6 ng/mL [facility] Blood specimen (specimen) BLOOD SPECIMEN / Unknown 11/05/2014 4:54 AM EQUAL OPPORTUNITY OFFICER 11/05/2014 4:59 AM EQUAL OPPORTUNITY OFFICER Alvin Helm MD LAB - CHEMISTRY ORDERABLES [facility] [address] [phone] * XR CHEST 1VW PORTABLE (11/05/2014 4:48 AM EQUAL OPPORTUNITY OFFICER) Anatomical Region Laterality Modality Chest Other Impressions 11/05/2014 5:20 PM EQUAL OPPORTUNITY OFFICER IMPRESSION: No acute pulmonary process. Dictated by Alexandre Solano MD (radiology interventional physician). This report was approved ??by ALEXANDRE SOLANO ?? on 11/05/2014 1:[address] Carmen Monroe M.D. have personally reviewed and interpreted this examination/study. This report was electronically signed by Carmen STARK M.D. ??on 11/05/2014 5:20 PM . Narrative 11/05/2014 5:20 PM EQUAL OPPORTUNITY OFFICER EXAMINATION: PX CHEST 1 VW DATE: 11/05/2014 [...] pulmonary process. Dictated by Alexandre Solano MD (radiology interventional physician). This report was approved by ALEXANDRE SOLANO on 11/05/2014 1:43 PM . IDr. Carmen M.D. have personally reviewed and interpreted thisexamination/study. This report was electronically signed by Carmen STARK M.D. on11/05/2014 5:20 PM . Alvin Helm MD DIAGNOSTIC IMAG ING ORDERABLES * BASIC METABOLIC PANEL (CALCIUM TOTAL) (11/03/2014 4:23 AM EQUAL OPPORTUNITY OFFICER) Only the most recent of6 resultswithin the time period is included. BUN 10 7 - 26 mg/dL [facility] Creatinine 0.9 0.6 - 1.2 mg/dL [facility] Sodium 142 136 - 145 mmol/L [facility] Potassium 3.8 3.5 - 4.5 mmol/L [facility] Chloride 106 98 - 107 mmol/L [facility] CO2 28 22 - 29 mmol/L [facility] Glucose 87 70 - 115 mg/dL [facility] Calcium 9.1 8.4 - 10.2 mg/dL [facility] Anion Gap 12 8 - 18 [facility] BUN/Creatinine Ratio 11 7 - 23 [facility] Osmolality Calculated 278 270 - 300 mOsm/kg [facility] eGFR >60 >60 mL/min/1.7 3 m2 [facility] Blood specimen (specimen) BLOOD SPECIMEN / Unknown 11/03/2014 4:23 AM EQUAL OPPORTUNITY OFFICER 11/03/2014 4:53 AM EQUAL OPPORTUNITY OFFICER Joann Davis MD LAB - CHEMISTRY O RDERABLES Performing Organization Address City/State/[facility] Co de Phone Number [address] [phone] * CT CHEST W CONTRAST (11/02/2014 9:18 PM EQUAL OPPORTUNITY OFFICER) Anatomical Region Laterality Modality Chest Other Impressions 11/04/2014 8:51 AM EQUAL OPPORTUNITY OFFICER IMPRESSION: 1. No CT evidence of metastatic disease in the chest. Report dictated by Raymond Juares M.D. (resident). This report was approved ??by Raymond Juares M.D. ?? on 11/03/2014 8:[address] Carmen Monroe M.D. have personally reviewed and interpreted this examination/study. This report was electronically signed by Carmen STARK M.D. ??on 11/04/2014 8:51 AM . Narrative 11/04/2014 8:51 AM EQUAL [employer]PPORT[employer]ITY OFFICER EXAMINATION: Computed tomography of the chest with [...] ABDOMEN PELVIS W CONTRAST (10/28/2014 5:05 PM EQUAL [employer]PPORT[employer]ITY OFFICER) Anatomical Region Laterality Modality Abdomen, Pelvis Other Impressions 10/29/2014 12:04 PM EQUAL OPPORTUNITY OFFICER IMPRESSION: No CT findings to explain the [...] 12:04 PM . Narrative 10/29/2014 12:04 PM EQUAL OPPORTUNITY OFFICER EXAMINATION: Computed tomography of the abdomen and [...] was approved by Raymond Juares M.D. on 10/29/2014 10:15 AM. IDr. LOW M.D. have personally reviewed and interpretedthis examination/study. This report was electronically signed by LOW MOJICA M.D. on10/29/2014 12:04 PM . Michaela Pate MD CT ORDERABLES * NM MECKELS SCAN (10/28/2014 11:07 AM EQUAL OPPORTUNITY OFFICER) Anatomical Region Laterality Modality Other Impressions 10/28/2014 2:41 PM EQUAL OPPORTUNITY OFFICER Impression: No scintigraphic evidence of Meckel's diverticulum with active ectopic gastric tissue. This report was approved ??by Bipin Gomez M.D. ?? on 10/28/2014 1:17 PM . I, Dr. FRIDA BURGOS M.D. have personally reviewed and interpreted this examination/study. This report was electronically signed by FRIDA BURGOS M.D. ??on 10/28/2014 2:41 PM . Narrative 10/28/2014 2:41 PM EQUAL OPPORTUNITY OFFICER Procedure: Meckel's scan History: 24-year-old male with [...] ORDERABLES * (ABNORMAL) HEMATOCRIT (10/26/2014 10:03 AM EQUAL OPPORTUNITY OFFICER) Only the most recent of8 resultswithin the time period is included. Hematocrit 26.3(L) 39.0 - 50.0 % [facility] Blood specimen (specimen) BLOOD SPECIMEN / Unknown 10/26/2014 10:03 AM EQUAL OPPORTUNITY OFFICER 10/26/2014 10:38 AM EQUAL OPPORTUNITY OFFICER Michaela Pate MD LAB - HEMATOLOGY ORD ERABLES Performing Organization Address City/[facility]/ZIP Co de Phone Number [address] [phone] * (ABNORMAL) HEMOGLOBIN (10/26/2014 10:03 AM EQUAL OPPORTUNITY OFFICER) Only the most recent of8 resultswithin the time period is included. Hemoglobin 8.6(L) 13.5 - 17.5 g/dL [facility] Blood specimen (specimen) BLOOD SPECIMEN / Unknown 10/26/2014 10:03 AM EQUAL OPPORTUNITY OFFICER 10/26/2014 10:38 AM EQUAL OPPORTUNITY OFFICER Michaela Pate MD LAB - HEMATOLOGY ORD ERABLES [address] [phone] * (ABNORMAL) TRANSFERRIN (10/24/2014 4:26 PM EQUAL OPPORTUNITY OFFICER) Transferrin 210 174 - 382 mg/dL [facility] Transferrin Saturation % 10(L) 16 - 50 % [facility] Blood specimen (specimen) BLOOD SPECIMEN / Unknown 10/24/2014 4:26 PM EQUAL OPPORTUNITY OFFICER 10/24/2014 4:26 PM EQUAL OPPORTUNITY OFFICER Harsha Ayala MD LAB - CHEMISTRY JARRED HOOPER Performing Organization Address [facility] Co de Phone Number [address] [phone] * (ABNORMAL) IRON BLOOD (10/24/2014 4:26 PM EQUAL OPPORTUNITY OFFICER) Iron 25(L) 50 - 175 mcg/dL [facility] Blood specimen (specimen) BLOOD SPECIMEN / Unknown 10/24/2014 4:26 PM EQUAL OPPORTUNITY OFFICER 10/24/2014 4:26 PM EQUAL OPPORTUNITY OFFICER Harsha Ayala MD LAB - CHEMISTRY JARRED HOOPER Performing Organization Address [facility] Co de Phone Number [address] [phone] * FERRITIN (10/24/2014 4:26 PM EQUAL OPPORTUNITY OFFICER) Ferritin 186 22 - 275 ng/mL [facility] Blood specimen (specimen) BLOOD SPECIMEN / Unknown 10/24/2014 4:26 PM EQUAL OPPORTUNITY OFFICER 10/24/2014 4:26 PM EQUAL OPPORTUNITY OFFICER Harsha Ayala MD LAB - CHEMISTRY JARRED HOOPER Performing Organization Address [facility] de Phone Number [address] [phone] * (ABNORMAL) RETIC COUNT (10/24/2014 10:27 AM EQUAL OPPORTUNITY OFFICER) Reticulocyte % 11.4(H) 0.4 - 2.5 % [facility] Reticulocyte Absolute 0.32(H) 0.02 - 0.13 10? 6 /uL [facility] Blood specimen (specimen) BLOOD SPECIMEN / Unknown 10/24/2014 10:27 AM EQUAL OPPORTUNITY OFFICER 10/24/2014 11:34 AM EQUAL OPPORTUNITY OFFICER Harsha Ayala MD LAB - HEMATOLOGY KIRT ARELLANO [address] [phone] * FOLATE (10/24/2014 10:27 AM EQUAL OPPORTUNITY OFFICER) Folate 7.0 7.0 - 31.4 ng/mL [facility] Blood specimen (specimen) BLOOD SPECIMEN / Unknown 10/24/2014 10:27 AM EQUAL OPPORTUNITY OFFICER 10/24/2014 11:34 AM EQUAL OPPORTUNITY OFFICER Harsha Ayala MD LAB - CHEMISTRY JARRED HOOPER Performing Organization Address City/[facility] Co de Phone Number [address] [phone] * VITAMIN B12 (10/24/2014 10:27 AM EQUAL OPPORTUNITY OFFICER) Vitamin B12 436 213 - 816 pg/mL [facility] Blood specimen (specimen) BLOOD SPECIMEN / Unknown 10/24/2014 10:27 AM EQUAL OPPORTUNITY OFFICER 10/24/2014 11:34 AM EQUAL OPPORTUNITY OFFICER Harsha Ayala MD LAB - CHEMISTRY JARRED HOOPER Performing Organization Address City/[facility] Co de Phone Number [address] [phone] * HAPTOGLOBIN (10/24/2014 4:37 AM EQUAL OPPORTUNITY OFFICER) Haptoglobin 117 14 - 258 mg/dL [facility] Blood specimen (specimen) BLOOD SPECIMEN / Unknown 10/24/2014 4:37 AM EQUAL OPPORTUNITY OFFICER 10/24/2014 4:37 AM EQUAL OPPORTUNITY OFFICER Harsha Ayala MD LAB - CHEMISTRY JARRED HOOPER Performing Organization Address City/[facility] Co de Phone Number [address] [phone] * (ABNORMAL) HEPATIC FUNCTION PANEL (10/24/2014 2:29 AM EQUAL OPPORTUNITY OFFICER) Protein Total 5.6(L) 6.0 - 8.3 g/dL [facility] Albumin 3.4 3.4 - 5.0 g/dL [facility] Bilirubin Total 0.5 0.2 - 1.2 mg/dL [facility] Bilirubin Conjugated 0.1 0.0 - 0.5 mg/dL [facility] Bilirubin Unconjugated 0.4 Unconjugated Bilirubin is a calculated value: Reference ranges have not been established. mg/dL [facility] Alkaline Phosphatase 53 40 - 150 Units/L [facility] ALT 24 0 - 55 Units/L [facility] AST 20 5 - 34 Units/L [facility] Albumin/Globulin Ratio 1.5 1.1 - 2.3 [facility] Blood specimen (specimen) BLOOD SPECIMEN / Unknown 10/24/2014 2:29 AM EQUAL OPPORTUNITY OFFICER 10/24/2014 2:29 AM EQUAL OPPORTUNITY OFFICER Harsha Ayala MD LAB - CHEMISTRY JARRED HOOPER Performing Organization Address City/[facility] Co de Phone Number [address] [phone] * LDH BLOOD (10/24/2014 2:29 AM EQUAL OPPORTUNITY OFFICER) LDH Total 147 125 - 243 Units/L [facility] Blood specimen (specimen) BLOOD SPECIMEN / Unknown 10/24/2014 2:29 AM EQUAL OPPORTUNITY OFFICER 10/24/2014 2:29 AM EQUAL OPPORTUNITY OFFICER Harsha Ayala MD LAB - CHEMISTRY JARRED HOOPER Performing Organization Address City/[facility] Co de Phone Number [address] [phone] Care Teams Visual Lead Relationship Specialty Start Date End Date Marlen Rico APRN-DOT [address] [place] [id number] PCP - General Nurse Practitioner Family 04/07/24
--- OUTSIDE RECORDS SUMMARY | 2024-12-25 14:49 | XMS_ITS | Clinical Summary ---
Author Organization [facility] Address [address] [place] [address] Phone Care Team Providers Care Evaluation Manager Name Role Phone Unavailable Primary Care Provider [...] Comments Blood Pressure 116/78 10/11/2020 2:38 PM MEDICAL CLAIMS PROCESSOR Pulse 97 10/11/2020 2:38 PM MEDICAL CLAIMS PROCESSOR Temperature 37.3 ??C (99.1 ??F) 10/11/2020 2:38 PM CS T Respiratory Rate - - Oxygen Saturation - - Inhaled Oxygen Concentration - - Weight 63 kg (139 lb) 10/11/2020 2:38 PM MEDICAL CLAIMS PROCESSOR Height 177.8 cm (5' 10 ) 10/11/2020 2:38 PM MEDICAL CLAIMS PROCESSOR Body Mass Index 19.94 10/11/2020 2:38 PM MEDICAL CLAIMS PROCESSOR Plan of Treatment Health Maintenance Due Date [...]
--- OUTSIDE RECORDS SUMMARY | 2024-12-25 14:49 | XMS_ITS | Encounter Summary ---
Author Organization [facility] [employer] [facility] Address [address] [place] [address] Phone Care Team Providers Care Cutter Hand Name Role Phone Marlen Rico NP Primary Care Provider + [phone] Cesar Perez MD Unavailable [phone] Encounter Details Date Type Department Care Team [...] CDT Gender Identity Male 02/02/2021 8:37 AM SEWAGE DISPOSAL ENGINEER Sexual Orientation Choose not to disclose 2020 8:37 AM SEWAGE DISPOSAL ENGINEER documented as of this encounter Plan of Treatment Not on file documented as of this encounter Procedures Procedure Name Priority Date/Time Associated Diagnosis Comments SCAN - LABS 05/09/2021 documented in this encounter Results * SCAN - LABS (05/09/2021) us Provider Scanning Final Result documented in this encounter Visit Diagnoses Not on filedocumented in this encounter Care Teams Cutter Hand Relationship Specialty Start Date End Date Marlen Rico NP [address] [place] [address] PCP - General 01/19/21 Cesar Perez MD [address] [place] [address] Referring Physician Ophthalmology 08/03/22 documented as of this encounter
--- OUTSIDE RECORDS SUMMARY | 2024-12-25 14:49 | XMS_ITS | Referral Summary ---
Author Organization [facility] [employer] Address [address] [place] [address] Care Team Providers Care Glove Finisher Name Role Phone Marlen Rico APRN-BOX CUTTER Primary Care Provider [phone] Source Comments [facility] [employer],non-owned Affiliates and Associated Physician Practices is amultiple site organization consisting of ambulatory clinics and hospital sitesin [place], [place], [place] and [place]. This disclosure is being madepursuant to the Care Everywhere program and may not contain all information available regarding this patient. Last updated 18.[facility] [employer] Allergies Active Allergy Reactions Criticality Noted Date [...] of Treatment Not on file Care Teams Glove Finisher Relationship Specialty Start Date End Date Marlen Rico APRN-DOT [address] [place] [phone] PCP - General Nurse Practitioner Family 04/07/24
--- OUTSIDE RECORDS SUMMARY | 2024-12-25 14:49 | XMS_ITS | Continuity of Care Document ---
Author Organization [facility] Address [address] [place] [address] [place] [address] Phone Care Team Providers Care Medicine Man Name Role Phone Guy Perales MD Unavailable Unavailable Advance Directives Directive Yes / No Effective Date File Name No Information Encounters Encounter Description Practice Location Reason(s) For Visit Diagnoses Date Provider Providers Copied on Encounter [facility], [address], [place], [place], [id number], [place] tel:[phone] [facility] No Information 0 5-200 5 Angella Tovar. [address], [place], [place], [id number], [place]. tel:[phone] Family History Family Member Type Diagnosis Age At Onset No Information Payers Payer name Insurance type Covered green party ID Authoriza tion(s) No Information Social [...]
--- OUTSIDE RECORDS SUMMARY | 2024-12-25 14:49 | XMS_ITS | Clinical Summary ---
Author Organization [facility] [employer] Address [address] [place] [address] Care Team Providers Care Nail Specialist Name Role Phone Marlen Rico APRN-SPARK PLUG ASSEMBLER Primary Care Provider [phone] Source Comments [facility] [employer],non-owned Affiliates and Associated Physician Practices is amultiple site organization consisting of ambulatory clinics and hospital sitesin [place], [place], [place] and [place]. This disclosure is being madepursuant to the Care Everywhere program and may not contain all information available regarding this patient. Last updated 18.[facility] Allergies Active Allergy Reactions Criticality Noted Date [...] age to complete this topic Care Teams Nail Specialist Relationship Specialty Start Date End Date Marlen Rico APRN-SPARK PLUG ASSEMBLER [address] [place] [address] PCP - General Nurse Practitioner Family 04/07/24
[2024-12-25] MEDS: ASPIRIN 81 MG CHEWABLE TABLET 324 MG PO (15:56)
[2024-12-25 16:07] LABS: Basophils Absolute Auto 0.1 K/mm3 (0.0-0.1); Eosinophils Absolute Auto 0.1 K/mm3 (0-0.3); Eosinophils Percent Auto 1.4 % (0-4.4); Hematocrit 46.3 % (42.0-52.0); Hemoglobin 15.6 g/dL (14.0-18.0); Immature Granulocyte Absolute 0.03 K/mm3 (0.00-0.031); Immature Granulocyte Percent A 0.5 % (0-0.5); Lymphocytes Absolute Auto 1.26 K/mm3 (0.9-3.2); Lymphocytes Percent Auto 21.5 % (18.3-44.2); Mean Corpuscular HGB Conc 33.7 g/dl (32-36); Mean Corpuscular Hemoglobin 30.2 pg (26-34); Mean Corpuscular Volume 89.6 fl (80-100); Mean Platelet Volume 10.2 fl (7.4-10.4); Monocytes Absolute Auto 0.5 K/mm3 (0.1-0.6); Monocytes Percent Auto 8.4 % (2.6-8.5); Neutrophils Absolute Auto 3.9 K/mm3 (1.3-6.7); Neutrophils Percent Auto 67.2 % (45.5-73.1); Platelet Count Result 263 k/mm3 (150-375); Red Blood Count 5.17 M/mm3 (4.6-6.20); Red Cell Distribution Width 12.1 % (11.5-14.5); White Blood Count 5.9 K/mm3 (4.5-10.0)
[2024-12-25 16:17] LABS: Alanine Aminotransferase 16 U/L (6-50); Albumin Level 4.6 g/dL (3.5-5.1); Alkaline Phosphatase 66 U/L (38-126); Anion Gap 8 mmol/L (4-12); Aspartate Amino Transferase 19 U/L (17-59); Bilirubin,Total 0.6 mg/dL (0.2-1.3); Blood Urea Nitrogen 8 mg/dL (9-20); Calcium 9.1 mg/dL (8.4-10.2); Carbon Dioxide 29 mmol/L (22-30); Chloride 104 mmol/L (98-107); Estimated CRCL calculation 114 ml/min; Estimated Glomerular Filt Rate > 60; Glucose 97 mg/dL (65-110); Lipase 62 U/L (23-300); Potassium 4.3 mmol/L (3.4-5.0); Sodium 141 mmol/L (137-145)
[2024-12-25 16:27] LABS: Erythrocyte Sedimentation Rate 1 mm/hr (0-20)
[2024-12-25 16:28] LABS: Troponin I < 0.012 ng/mL (0.000-0.034)
[2024-12-25 16:29] LABS: Prothrombin Time 13.8 Seconds (11.1-14.7)
[2024-12-25 16:30] LABS: Partial Thromboplastin Time 28.8 Seconds (22.3-36.8)
[2024-12-25 19:34] VITALS: BP 131/98; PULSE 95; RESP 18; O2SAT 99
[2024-12-25 19:36] VITALS: PULSE 81
[2024-12-25 19:51] LABS: D Dimer < 0.27 ug/mL (<0.48)
[2024-12-25 19:53] LABS: Magnesium 2.3 mg/dL (1.6-2.3)
--- NOTE | 2024-12-25 19:54 | ECG_ITS ---
Test Date: 2024-12-25 21:12:26 Measurements Intervals [place] Rate: 75 P: 73 AK: 112 QRS: 83 QRSD: 90 T: 28 QT: 356 QTc: 399 Interpretive Statements SINUS RHYTHM WITH SHORT AK INTERVAL INCOMPLETE RIGHT BUNDLE BRANCH BLOCK NONSPECIFIC T-WAVE ABNORMALITY- ANTEROLAT/INF LEADS BASELINE ARTIFACT- I, II, III, AVR, AVL, AVF, V6 BORDERLINE ECG Compared to ECG 12/25/2024 14:23:14 Possible ischemia no longer present Electronically Signed On 12-26-2024 10:37:46 CHILD PSYCHIATRIST by Germain Chandra D.O.
[2024-12-25 20:11] LABS: Troponin I < 0.012 ng/mL (0.000-0.034)
[2024-12-25 20:30] LABS: Thyroid Stimulating Hormone Reflex 0.593 uIU/mL (0.465-4.68)
[2024-12-25] MEDS: KETOROLAC 15 MG/ML VIAL (*BKC) IV PUSH (21:48)
[2024-12-25 21:54] VITALS: BP 130/96; PULSE 89; RESP 17; O2SAT 98
== END 2024-12-25 22:04 | disposition home or self-care (01) ==
PROVIDERS: Physician Assistant; Emergency Provider Physician Assistant; PCP Nurse Practitioner Family
DX: R00.2 Palpitations (principal); R07.89 Other chest pain; I31.9 Disease of pericardium, unspecified; R94.31 Abnormal electrocardiogram [ECG] [EKG]; I45.10 Unspecified right bundle-branch block
CPT/HCPCS: 36415; 71046; 80053; 83690; 83735; 84443; 84484; 85025; 85380; 85610; 85652; 85730; 93005; 96374; 99284; A9270; J1885

== ENCOUNTER 2025-11-14 23:42 | Emergency (ER) | payer OTHER, SELFPAY ==
--- NOTE | ~2025-11-14 | XR_ITS ---
Examination: XR chest 2V Clinical History: sob Comparison: 12/25/2024 Technique: PA and Lateral Findings: Cardiomediastinal silhouette normal size and configuration. Lungs clear. No acute bony abnormality. IMPRESSION: 1. No acute cardiopulmonary findings. Reviewed, dictated and finalized at location R. NESS CENTER REPRESENTATIVE
[2025-11-14 23:42] VITALS: BP 139/99; PULSE 118; RESP 22; TEMP 36.7; O2SAT 97
[2025-11-14 23:52] VITALS: O2SAT 97
--- NOTE | 2025-11-14 23:59 | ECG_ITS ---
Test Date: 2025-11-15 00:06:31 Measurements Intervals [place] Rate: 111 P: 62 ND: 93 QRS: 83 QRSD: 84 T: -64 QT: 315 QTc: 429 Interpretive Statements SINUS TACHYCARDIA WITH SHORT ND INTERVAL LEFT ATRIAL ENLARGEMENT INCOMPLETE RIGHT BUNDLE BRANCH BLOCK ST-T WAVE ABNORMALITY IN ANTEROLAT/INF LEADS- CONSDIER ISCHEMIA BASELINE ARTIFACT- I, AVR ABNORMAL ECG Compared to ECG 12/25/2024 21:12:26 POSSIBLE ISCHEMIA NOW PRESENT Electronically Signed On 11-15-2025 09:06:40 WIRE PRODUCTS INSPECTOR by Germain Chandra D.O.
--- NOTE | 2025-11-15 00:08 | ED.SOB ---
HPI - SOB/Dyspnea General Chief Complaint: Shortness of Breath/Dyspnea Stated Complaint: Asthma x 3D Time Seen by Provider: 11/14/25 23:53 Source: patient Mode of arrival: EMS Limitations: no limitations History of Present Illness HPI Narrative: This is a 35-year-old male that presents emergency department for asthma exacerbation. Ongoing over the last couple of days. Reports he is currently on prednisone for this. Given nebulizer treatment via EMS with improvement. Denies fevers or cough. Related Data Allergies Allergy/AdvReac Type Severity Reaction Status Date / Time amoxicillin Allergy Unknown HIVES Verified 11/14/25 23:54 Review of Systems Review of Systems: All systems reviewed & are unremarkable except as noted in HPI and below PMFSH Past Medical History Medical History (Updated 11/15/25 @ 02:02 by Sabina Valles PA-C) Asthma Exam Narrative: GENERAL: Well-appearing, well-nourished, and in no acute distress. HEAD: Normocephalic, atraumatic. EYES: EOMI. ENT: Nares clear, no rhinorrhea or epistaxis. Mucous membranes moist. Oropharynx without tonsillar hypertrophy exudate or other lesions. CHEST: Clear to auscultation. No respiratory distress. No wheezes rales or rhonchi HEART: Regular rate and rhythm. No murmur heard. Normal peripheral pulses. EXTREMITIES: Normal range of motion. No edema. SKIN: Warm, dry, no rash. NEURO: No focal deficits. Alert and oriented x3. PSYCH: Normal mood and affect Course Vital Signs Vital signs: Vital Signs Temperature 98.0 F 11/14/25 23:42 Pulse Rate 118 H 11/14/25 23:42 Respiratory Rate 22 H 11/14/25 23:42 Blood Pressure 139/99 H 11/14/25 23:42 Pulse Oximetry 97 11/14/25 23:42 Oxygen Delivery Room Air 11/14/25 23:42 Temperature 98.0 F 11/14/25 23:42 Pulse Rate 118 H 11/14/25 23:42 Respiratory Rate 22 H 11/14/25 23:42 Blood Pressure 139/99 H 11/14/25 23:42 Pulse Oximetry 97 11/14/25 23:52 Oxygen Delivery Room Air 11/14/25 23:52 MDM MDM Narrative Medical decision making narrative: Patient presents the emergency department for asthma exacerbation. Ongoing over the last couple of days. Patient is afebrile and nontoxic appearing. Oxygen saturation has remained normal on room air. Tachycardic upon arrival, this normalized with treatment of his asthma. He was given a nebulizer treatment in route. Given magnesium and Solu-Medrol upon arrival to the ER with relief. Instructed to finish his steroid as prescribed. Albuterol as needed. Follow-up with PCP Differential Diagnosis Differential Diagnosis: COVID, influenza, pneumonia, asthma exacerbation Lab Data MDM Lab Attestation statement: I personally reviewed the patient's lab results. 11/15/25 00:06 11/15/25 00:06 Labs: Lab Results 11/15/25 Range/Units 00:06 WBC 13.7 H (4.5-10.0) K/mm3 RBC 5.48 (4.6-6.20) M/mm3 Hgb 16.7 (14.0-18.0) g/dL Hct 48.4 (42.0-52.0) % MCV 88.3 (80-100) fl MCH 30.5 (26-34) pg MCHC 34.5 (32-36) g/dl RDW 12.2 (11.5-14.5) % Plt Count 305 (150-375) k/mm3 MPV 9.7 (7.4-10.4) fl Immature Gran % (Auto) 0.8 H (0-0.5) % Neut % (Auto) 89.0 H (45.5-73.1) % Lymph % (Auto) 6.9 L (18.3-44.2) % [place] % (Auto) 2.8 (2.6-8.5) % Eos % (Auto) 0.3 (0-4.4) % Baso % (Auto) 0.2 (0.2-1.2) % Lymph # (Auto) 0.95 (0.9-3.2) K/mm3 [place] # (Auto) 0.4 (0.1-0.6) K/mm3 Eos # (Auto) 0.0 (0-0.3) K/mm3 Baso # (Auto) 0.0 (0.0-0.1) K/mm3 Abs Immat Gran (auto) 0.11 H (0.00-0.031) K/mm3 Absolute Neuts (auto) 12.2 H (1.3-6.7) K/mm3 Absolute Nucleated RBC 0.000 (0.0-0.012) K/mm3 Nucleated RBC % 0.0 (0.0-0.2) % PT 13.3 (11.1-14.7) Seconds INR 1.0 APTT 24.5 (22.3-36.8) Seconds Sodium 137 (137-145) mmol/L Potassium 4.0 (3.4-5.0) mmol/L Chloride 102 (98-107) mmol/L Carbon Dioxide 25 (22-30) mmol/L Anion Gap 10 (4-12) mmol/L BUN 14 D (9-20) mg/dL Creatinine 0.95 (0.7-1.3) mg/dL Estim Creat Clear Calc 85 ml/min Estimated GFR > 60 (59 - ) Glucose 149 H (65-110) mg/dL Calcium 10.7 H (8.4-10.2) mg/dL Total Bilirubin 0.6 (0.2-1.3) mg/dL AST 20 (17-59) U/L ALT 28 (6-50) U/L Alkaline Phosphatase 78 (38-126) U/L Total Protein 8.0 (6.3-8.2) g/dL Albumin 4.9 (3.5-5.1) g/dL Influenza A (RT-PCR) Negative (Negative) Influenza B (RT-PCR) Negative (Negative) RSV (RT-PCR) Negative (Negative) SARS-CoV-2 RNA (RT-PCR) Negative (Negative) Imaging Data My impression: Chest x-ray: No acute cardiopulmonary abnormality Critical Care Time Critical Care Time Critical Care Time: No Discharge Plan Discharge Clinical Impression: Asthma exacerbation Qualifiers: Asthma severity: unspecified severity Asthma persistence: persistent Qualified Code(s): J45.901 - Unspecified asthma with (acute) exacerbation Patient Disposition: Home Condition: Improved Instructions: Asthma (ED) Additional Instructions: Return to the emergency department for worsening symptoms, or any other concerns Continue steroid as prescribed. Albuterol 2 puffs every 4-6 hours as needed for shortness of breath or wheezing Follow up with your primary care doctor Patient Language: Maltese Prescriptions: No Action ibuprofen 800 mg tablet 800 mg PO TID PRN (Reason: pain) Qty: 20 0RF methylprednisolone [Medrol (Dylon)] 4 mg tablets,dose pack See Rx Instructions .ROUTE .COMPLEX Qty: 21 0RF Rx Instructions: orally per package directions Follow-up/Referrals: Trisha,Marlen Desai APN [Non-Staff, Unknown]
[2025-11-15 00:12] LABS: Hematocrit 48.4 % (42.0-52.0); Hemoglobin 16.7 g/dL (14.0-18.0); Immature Granulocyte Percent A 0.8 % (0-0.5); Lymphocytes Absolute Auto 0.95 K/mm3 (0.9-3.2); Mean Corpuscular HGB Conc 34.5 g/dl (32-36); Mean Corpuscular Hemoglobin 30.5 pg (26-34); Mean Corpuscular Volume 88.3 fl (80-100); Nucleated Red Blood Cells Absolute Auto 0.000 K/mm3 (0.0-0.012); Nucleated Red Blood Cells Perc 0.0 % (0.0-0.2); Platelet Count Result 305 k/mm3 (150-375); Red Blood Count 5.48 M/mm3 (4.6-6.20); White Blood Count 13.7 K/mm3 (4.5-10.0)
--- OUTSIDE RECORDS SUMMARY | 2025-11-15 00:13 | XMS_ITS | Data Portability ---
Author Organization [facility] Address [address] [place] [address] Care Team Providers Care Patch Setter Name Role Phone IRVIN, MARLEN Primary Care Provider [phone] Assessment No assessment recorded. Plan of Treatment Reminders Order Date Submit Date Provider Last Modified By Organization Details Last Modified Time Details Appointments None recorded . Lab vitamin D, 25-hydro xy, total, serum 2022 023 ED LABKUSH, [facility] [address], [place], [address], 3 07:11:57 TSH, ultra-se nsitive, serum 2022 023 [place] [facility], [address], [address], [place], [address], 3 07:11:56 CMP, serum or plasma 2022 023 ED [facility], [address], [address], [place], [address], 3 20:08:28 lipid panel, serum 2022 023 ED [facility], 2022 Koby Simeon, [address], [place], [address], 3 20:08:28 CBC w/ auto diff 2022 023 ED [facility], [address] [facility] [address], [place], [address], 3 20:08:29 Referral cardiolo gist referral 2022 023 [facility], 2 [facility] , [address], [place], [address], 3 00:42:50 Procedures None recorded . Surgeries None recorded . Imaging CT, chest, w/o contrast 2023 024 rubio Solis (Radiology), [address] [place], [address], 4 14:07:48 holter monitor 2022 023 ED Solis (Radiology), [address] [place], [address], 3 12:17:21 Medication Orders omeprazo le 20 mg capsule, delayed release 2023 024 [id number], [address] , [place], [address], 4 11:50:27 Patient TargetsNo targets recorded. Patient Instructions Encounter Date Encounter Id Patient Instructions Last Modified By Organization Details Last Modified Time 03/18/2023 [id number] gastroesophageal reflux disease (GERD): care instructions Not [...] needed Not availa ble 03/19/2023 17:56:32 08/13/2023 [id number] anxiety disorder : care instructions Not available 08/13/2023 15:24:22 Increase clear fluids. May take fever legal billing specialist as needed Go to ER if condition worsens. Not available 08/13/2023 16:53:36 Plan pending results. 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 Department [address] [place], [address], 03/18/2023 20:08:27 03/18/2003/18/2023 LIPID PANEL triglyceride s 103 mg/dL <=[address] [facility] Department [address] [place], [address], 03/18/2023 20:08:27 03/18/20 23 03/18/2023 LIPID PANEL HDL cholesterol 45.0 mg/dL 40.0-[address] [facility] Department [address] [place], [address], 03/18/2023 20:08:27 03/18/20 23 03/18/2023 LIPID PANEL VLDL cholesterol christina 20.60 mg/dL 5.00-[address] [facility] Department [address] [place], [address], 03/18/2023 20:08:27 03/18/20 23 03/18/2023 LIPID PANEL LDL chol calc ([facility]) 105.5 Not Available [facility] Department [address] [place], [address], 03/18/2023 20:08:27 03/18/20 23 03/18/2023 COMP. METAB OLIC PANEL (14) glucose 91 mg/dL 65-99 ANION GP 15.0 mmol/ L N OSMOL 285.0 mOsM/ L N REFER ENCE RANGE : 275.0 -301. [address] [facility] Department [address] [place], [address], 03/18/2023 20:08:28 03/18/20 23 03/18/2023 COMP. METAB OLIC PANEL (14) BUN 13 mg/dL 8-[address] [facility] Department [address] [place], [address], 03/18/2023 20:08:28 03/18/20 23 03/18/2023 COMP. METAB OLIC PANEL (14) creatinine 0.95 mg/dL 0.50-[address] [facility] Department [address] [place], [address], 03/18/2023 20:08:28 03/18/20 23 03/18/2023 COMP. METAB OLIC PANEL (14) eGFR 108 mL/mi n/1.7 3 >=[address] [facility] Department [address] [place], [address], 03/18/2023 20:08:28 03/18/20 23 03/18/2023 COMP. METAB OLIC PANEL (14) BUN/creatini ne ratio 14.[address] [facility] Department [address] [place], [address], 03/18/2023 20:08:28 03/18/20 23 03/18/2023 COMP. METAB OLIC PANEL (14) sodium 143.0 mmol/ L 136.0- 144.[address] [facility] Department [address] [place], [address], 03/18/2023 20:08:28 03/18/20 23 03/18/2023 COMP. METAB OLIC PANEL (14) potassium 3.5 mmol/ L 3.5-5. [address] [facility] Department [address] [place], [address], 03/18/2023 20:08:28 03/18/20 23 03/18/2023 COMP. METAB OLIC PANEL (14) chloride 104 mmol/ l 101-[address] [facility] Department [address] [place] [address], [address], 03/18/2023 20:08:28 03/18/20 23 03/18/2023 COMP. METAB OLIC PANEL (14) carbon dioxide, total 27.8 mmol/ L 21.0-[address] [facility] Department [address] [place], [address], 03/18/2023 20:08:28 03/18/20 23 03/18/2023 COMP. METAB OLIC PANEL (14) calcium 10.1 mg/dL 8.2-10 .0 above high normal Not Available [facility] Department [address] [place], [address], 03/18/2023 20:08:28 03/18/20 23 03/18/2023 COMP. METAB OLIC PANEL (14) protein, total 7.6 g/dL 6.7-8. [address] [facility] Department [address] [place], [address], 03/18/2023 20:08:28 03/18/20 23 03/18/2023 COMP. METAB OLIC PANEL (14) albumin 5.1 g/dL 3.5-5. [address] [facility] Department [address] [place], [address], 03/18/2023 20:08:28 03/18/20 23 03/18/2023 COMP. METAB OLIC PANEL (14) globulin, total 2.5 g/dL 1.5-4. [address] [facility] Department [address] [place] [address], [address], 03/18/2023 20:08:28 03/18/20 23 03/18/2023 COMP. METAB OLIC PANEL (14) A/G ratio 2.1 Not Available [facility] Department [address] [place] [address], [address], 03/18/2023 20:08:28 03/18/20 23 03/18/2023 COMP. METAB OLIC PANEL (14) bilirubin, total 0.6 mg/dL 0.0-1. [address] [facility] Department [address] [place], [address], 03/18/2023 20:08:28 03/18/20 23 03/18/2023 COMP. METAB OLIC PANEL (14) alkaline phosphatase 82.7 IU/L 42.0-[address] [facility] Department [address] [place] [address], [address], 03/18/2023 20:08:28 03/18/20 23 03/18/2023 COMP. METAB OLIC PANEL (14) AST (SGOT) 12.5 U/L 10.0-[address] [facility] Department [address] [place] [address], [address], 03/18/2023 20:08:28 03/18/20 23 03/18/2023 COMP. METAB OLIC PANEL (14) ALT (SGPT) 11.1 U/L 10.0-[address] [facility] Department [address] [place], [address], 03/18/2023 20:08:28 03/18/2003/18/2023 CBC WITH DIFFE RENTI AL/PL ATELE T WBC 5.4 K/uL 3.4-[address] [facility] Department [address] [place], [address], 03/18/2023 20:08:29 03/18/2003/18/2023 CBC WITH DIFFE RENTI AL/PL ATELE T RBC 5.1 M/uL 4.5-6. [address] [facility] Department [address] [place], [address], 03/18/2023 20:08:29 03/18/2003/18/2023 CBC WITH DIFFE RENTI AL/PL ATELE T hemoglobin 15.0 g/dL 13.5-[address] [facility] Department [address] [place], [address], 03/18/2023 20:08:29 03/18/2003/18/2023 CBC WITH DIFFE RENTI AL/PL ATELE T hematocrit 45.9 % 40.0-[address] [facility] Department [address] [place], [address], 03/18/2023 20:08:29 03/18/2003/18/2023 CBC WITH DIFFE RENTI AL/PL ATELE T MCV 90 fL 80-[address] [facility] Department [address] [place], [address], 03/18/2023 20:08:29 03/18/2003/18/2023 CBC WITH DIFFE RENTI AL/PL ATELE T MCH 29 pg 27-[address] [facility] Department [address] [place], [address], 03/18/2023 20:08:29 03/18/2017 0303/18/2023 CBC WITH DIFFE RENTI AL/PL ATELE T MCHC 33 g/dL 32-[address] [facility] Department [address] [place], [address], 03/18/2023 20:08:29 03/18/20 23 03/18/2023 CBC WITH DIFFE RENTI AL/PL ATELE T RDW 12.3 % 11.5-[address] [facility] Department [address] [place], [address], 03/18/2023 20:08:29 03/18/20 23 03/18/2023 CBC WITH DIFFE RENTI AL/PL ATELE T platelets 212 K/uL 155-37 9 MPV 11.2 FL 8.9-[address] [facility] Department [address] [place], [address], 03/18/2023 20:08:29 03/18/20 23 03/18/2023 CBC WITH DIFFE RENTI AL/PL ATELE T neutrophils 52.4 % 40.0-[address] [facility] Department [address] [place], [address], 03/18/2023 20:08:29 03/18/20 23 03/18/2023 CBC WITH DIFFE RENTI AL/PL ATELE T lymphs 31.5 % 14.0-[address] [facility] Department [address] [place], [address], 03/18/2023 20:08:29 03/18/20 23 03/18/2023 CBC WITH DIFFE RENTI AL/PL ATELE T monocytes 9.6 % 4.0-[address] [facility] Department [address] [place], [address], 03/18/2023 20:08:29 03/18/20 23 03/18/2023 CBC WITH DIFFE RENTI AL/PL ATELE T eos 5 % 0-[address] [facility] Department [address] [place], [address], 03/18/2023 20:08:29 03/18/20 23 03/18/2023 CBC WITH DIFFE RENTI AL/PL ATELE T basos 1.5 % 0.0-1. 0 above high normal Not Available [facility] Department [address] [place], [address], 03/18/2023 20:08:29 03/18/20 23 03/18/2023 CBC WITH DIFFE RENTI AL/PL ATELE T neutrophils (absolute) 2.8 K/uL 1.4-7. [address] [facility] Department [address] [place], [address], 03/18/2023 20:08:29 03/18/20 23 03/18/2023 CBC WITH DIFFE RENTI AL/PL ATELE T lymphs (absolute) 1.7 K/uL 0.7-3. [address] [facility] Department [address] [place], [address], 03/18/2023 20:08:29 03/18/20 23 03/18/2023 CBC WITH DIFFE RENTI AL/PL ATELE T monocytes(ab solute) 0.5 K/uL 0.1-0. [address] [facility] Department [address] [place], [address], 03/18/2023 20:08:29 03/18/2003/18/2023 CBC WITH DIFFE RENTI AL/PL ATELE T eos (absolute) 0.3 K/uL 0.0-0. [address] [facility] Department [address] [place], [address], 03/18/2023 20:08:29 03/18/20 23 03/18/2023 CBC WITH DIFFE RENTI AL/PL ATELE T baso (absolute) 0.1 K/uL 0.0-0. [address] [facility] Department [address] [place], [address], 03/18/2023 20:08:29 03/18/20 23 03/18/2023 CBC WITH DIFFE RENTI AL/PL ATELE T immature granulocytes 0.4 % Not Available [facility] Department [address] [place], [address], 03/18/2023 20:08:29 03/18/20 23 03/18/2023 CBC WITH DIFFE RENTI AL/PL ATELE T immature grans (abs) 0.0 K/uL Not Available [facility] Department [address] [place], [address], 03/18/2023 20:08:29 03/18/20 23 03/18/2023 CBC WITH DIFFE RENTI AL/PL ATELE T NRBC 0 % Not Available [facility] Department [address] [place], [address], 03/18/2023 20:08:29 03/18/20 23 03/19/2023 TSH RFX ON ABNOR MAL TO FREE T4 TSH 1.600 uIU/m L 0.450- 4.500 Not Available [facility] ([facility]) [address] [facility], [place], [address], 03/19/2023 07:11:56 03/18/2003/19/2023 VITAM IN D, 25-HY [...] Endoc rine Socie ty went on to furth er defin e vitam in D insuf ficie ncy as a level betwe en 21 and 29 ng/mL (2). 1. IOM (Inst itute of Medic ine). 2010. Dieta ry refer ence anvya es for calci um and D. Miranda cook [place]: [facility] . 2. Sandra dominguez MF, Deepa cooper [place], Bisch off-F errar i MANNING, et al. Evalu ation , treat ment, and preve ntion of vitam in D defic iency : an Endoc rine Socie ty clini christina pract ice guide line. JCEM. 2010; 96(7) :1911 -30. Not Available [facility] ([facility]) [address] [facility], [place], [address], 03/19/2023 07:11:56 07/30/20 23 07/29/2023 XR, chest , 2 view No observ ation record ed. [email or web address] [place] [address] [address], [place], [address], 08/13/2023 16:54:11 09/05/20 23 08/27/2023 nellie r monit or No observ ation record ed. [facility] [address] [place], [address], 09/08/2023 23:06:48 03/09/20 24 02/25/2024 XR, chest , 2 view No observ ation record ed. [place] [id number] [facility] [address], [place], [address], 03/09/2024 22:48:29 04/07/20 24 04/04/2024 CT, chest , w/o contr ast No observ ation record ed. [facility] [address] [place], [address], 04/08/2024 21:40:03 12/25/19 25 12/25/2024 XR, chest , 2 view No observ ation record ed. [place] [id number] [facility] [address], [place], [address], 01/04/2025 08:55:00 Result Notes None recorded. Problems Name Problem SNOMED Code Status Onset Date Resolution Date Notes Provider Name and Address Organization Details Recorded Time Chronic neck pain 99183034276 07 Active Marlen Irvin APN ASSISTANT PROFESSOR IN FAMILY STUDIES-C Attn: Terryin susan,[address] [facility], [place], [address], [facility] 3 16:55:32 Chronic back pain 823842741 Active Marlen Irvin APN ASSISTANT PROFESSOR IN FAMILY STUDIES-C Attn: Terryin g,[address] [facility], [place], [address], [facility] 3 16:55:32 Acquired arteriov enous malforma tion 20741422619 08 Active small intestin e Marlen Irvin APN ASSISTANT PROFESSOR IN FAMILY STUDIES-C Attn: Terryin g,[address] [facility], [place], [address], [facility] 3 16:55:33 Generali zed anxiety disorder 48526372 Active 2020 Marlen Irvin APN ASSISTANT PROFESSOR IN FAMILY STUDIES-C Attn: Terryin g,[address] [facility], [place], [address], [facility] 3 16:55:32 Divertic ular disease of colon 605578492 Active 2020 Marlen Irvin APN, ASSISTANT PROFESSOR IN FAMILY STUDIES-C Attn: Terryin g,[address] [facility], [place], [address], [facility] 3 16:55:33 Unintent ional weight loss 286869725 Active 2020 Marlen Irvin APN ASSISTANT PROFESSOR IN FAMILY STUDIES-C Attn: Terryin g,[address] [facility], [place], [address], [facility] 3 16:55:33 Fatigue 40735149 Active 2020 Marlen Irvin APN, ASSISTANT PROFESSOR IN FAMILY STUDIES-C Attn: Accountin g,[address] [facility], [place], [address], [facility] 3 16:55:33 Body mass index less than 20 670959720 Completed 202005/08/2021 Marlen Irvin APN, FNP-C Attn: Iza davis,[address] [facility], [place], [address], [facility] 1 15:47:56 History of pericard itis 40788758031 9105 Active 2020 Marlen Irvin APN, FNP-C Attn: Accountin g,[address] [facility], [place], [address], [facility] 3 16:55:32 Gastroes ophageal reflux disease without esophagi tis 022899355 Active 2020 Marlen Irvin APN, FNP-C Attn: Iza g,[address] [facility], [place], [address], [facility] 3 16:55:32 Vitamin D deficien cy 79534379 Active 2020 Marlen Irvin APN, FNP-C Attn: Accountsherice g,[address] [facility], [place], [address], [facility] 3 16:55:32 Chronic pain syndrome 584802871 Active 2020 Marlen Irvin APN, FNP-C Attn: Iza g,[address] [facility], [place], [address], [facility] 3 16:55:32 Low back pain 063733204 Active 2020 Marlen Irvin APN, FNP-C Attn: Accountin g,[address] [facility], [place], [address], [facility] 3 16:55:32 Problem Notes None recorded. Procedures Surgical History Date Name Laterality Status Provider Name and Address Organization Details Recorded Time 5 partial excision of small intestine completed Paz Musa PA-C Attn: Accounting,[address] [facility], [place], [address], [facility] 04/30/2019 10:04:49 Imaging Results None recorded. Procedure Notes None recorded. Medical Equipment None Reported. Allergies Allergen ID Allergen Name Allergen Category Reaction Reaction Severity Criticality Documentation Date Start Date Code Code System Note Provider Name and Address Organization Details Recorded Time 215152 amoxicill in medicatio n hives Not available Not available 04/30/2019 723 RxNorm ADONAY [place] null, [facility] 9 09:07:46 [id number] Product containin g penicilli n (product) medicatio n Not available Not available Not available 08/13/20232016 78453 8001 SNOMED Other react ions and sever ities : 'Unkn own'. Marlen Irvin APN, ASSISTANT PROFESSOR IN FAMILY STUDIES-C Attn: Iza susan,[address] [facility], [place], [address], [facility] 3 16:55:05 Medications Name Sig Start Date Stop Date [...] omeprazol e 20 mg capsule,d elayed release Take 1 capsule twice a day by oral route. 09/18 completed Not Available Not Available Not Available methylpre dnisolone 4 mg tablets in a [...] Not Available Vitals Date Recorded Body height Body mass index (BMI) Body weight Oxygen saturation Heart rate Respiratory rate Body temperature Systolic And Diastolic Provider Name and Address Organization Details Last Updated DateTime 4 180.34 cm 20.5 kg/m2 69083.0 8 g 97 % 106 /min 16 /min 97.1 [degF] 130/86 mm[Hg] Bette Barrera Alanis [facility] 4 11:25:55 Date Recorded Body height Body mass index (BMI) Body weight Oxygen saturation Heart rate Respiratory rate Body temperature Systolic And Diastolic Provider Name and Address Organization Details Last Updated DateTime 3 180.34 cm 19.2 kg/m2 07476.7 5 g 98 % 96 /min 16 /min 98 [degF] 114/80 mm[Hg] Bette Barrera [facility] 3 10:13:32 Date Recorded Body height Heart rate Respiratory rate Body temperature Body mass index (BMI) Body weight Systolic And Diastolic Provider Name and Address Organization Details Last Updated DateTime 3 180.34 cm 92 /min 16 /min 97.5 [degF] 19.5 kg/m2 95428.9 3 g 122/84 mm[Hg] Kate Masterson MA [facility] 3 10:30:57 Date Recorded Body height Body mass index (BMI) Body weight Oxygen saturation Heart rate Respiratory rate Body temperature Systolic And Diastolic Provider Name and Address Organization Details Last Updated DateTime 3 180.34 cm 19.1 kg/m2 57764.1 5 g 97 % 110 /min 16 /min 98.7 [degF] 124/88 mm[Hg] Bette Barrera [facility] 3 15:04:13 Social History Question Answer Notes LastModified by Databoxat ion Details LastModified Time Tobacco Smoking Status Never Smoker ADONAY Lambert, [facility] 04/30/2019 09:09:31 Do You Have An Advance Directive? No Information not available 01/19/2021 Are You Blind Or Do You Have [...] No Information not available 01/19/2021 Are You Deaf Or Do You Have Serious Difficulty Hearing? No Information not available 01/19/2021 What Type Of Diet Are You Following? REGULAR Information not available 04/30/2019 Which Illicit Or Recreational Drugs Have You Used? None Information not available 04/30/2019 Education 12 Information no t available 06/05/2021 Are There Any Guns Present In Your [...] Medium Information not available 04/30/2019 Do You Use Sunscreen Routinely? No Information not available 01/19/2021 Has Tobacco Cessation Counseling Been Provided? Yes [email or web address] Information not available 03/18/2023 On What Date Was Tobacco Cessation Counseling Provided? 02/20/2024 Information not available 02/20/2024 Sex: Male Functional Status Question Answer Note LastModified by Organizat ion Details LastModified Time Do you use any illicit or recreational drugs? No [email or web address] Information not available 08/13/2023 Do you or have you ever used any other forms of tobacco or nicotine? No Information not available 01/19/2021 What is your level of alcohol consumption? Occasional Information not available 06/05/2021 Are you currently employed? Yes Information not available 01/04/2022 Are you able to care for yourself independently? Yes Information not available 01/19/2021 What is your occupation? [employer] Information not available 01/04/2022 What is your exercise level? Moderate Information not available 02/20/2024 Mental Status Question Answer Note LastModified by Organization D etails LastModified Time Do you feel stressed (tense, restless, nervous, or anxious, or unable to sleep at night)? [id number] Information not available 01/04/2022 Family History Relationship Description Onset Age of [...] Atrial Fibrillation N High Blood Pressure N Depression N COPD N Blood Clots N Anxiety Disorder N Muscle, Joint, or Bone Problems Y Acid Reflux (GERD) Y Cancer N Stroke N ADHD N High Cholesterol N Liver Disease N Schizophrenia N Headaches N Kidney or Bladder Problems N Thyroid Problems N GI Problems Y Skin Problems Y Anemia Y Heart Attack ([place]) N Diabetes N Seizures/Epilepsy N Asthma N Allergies Y Substance Abuse N Hepatitis N Osteoporosis N Heart Failure N Immunizations Vaccine Type Date Status Note Provider Name and Address Organization Details Recorded Time Influenza, split virus, quadrivalent, preservative 01/19/20 21 cancelled patient objection Marlen Irvin APN, ASSISTANT PROFESSOR IN FAMILY STUDIES-C Attn: Accounting,[address] [place], [address], [place] [facility] 01/19/2021 10:21:17 COVID-19, mRNA, LNP-S, PF, 100 mcg/0.5mL dose or 50 mcg/0.25mL dose 04/14/20 21 completed ABRAHAM [place], [place] [facility] 04/14/2021 15:12:32 COVID-19, mRNA, LNP-S, PF, 100 mcg/0.5mL dose or 50 mcg/0.25mL dose 05/12/20 21 completed Prema Ledesma [place] null, [place] [facility] 05/12/2021 16:34:31 Influenza, split virus, quadrivalent, preservative 01/04/20 22 cancelled patient objection Marlen Irvin APN, ASSISTANT PROFESSOR IN FAMILY STUDIES-C Attn: Accounting,[address], [place], [address], [place] [facility] 01/04/2022 12:45:09 COVID-19, mRNA, LNP-S, PF, 100 mcg/0.5mL dose or 50 mcg/0.25mL dose 03/08/20 22 completed Erlinda Nuñez [place] null, [place] [facility] 03/08/2022 12:15:10 Past Encounters Encounter ID Performer Location Encounter Start Date Encounter Closed Date Diagnosis/Indication Diagnosis SNOMED-CT Code Diagnosis ICD10 Code Diagnosis IMO Codes Diagnosis Note [id number] MD Richard Oshea (Adult Med) [address] [place] [address] 04/30/2019 08:52:49 05/01/2019 08:34:58 Atypical chest pain 918943684 R07.89 pt reports hole in back of heart but cardiologi st did not feel it needed repair. Irasema cuellar cardiologi st no longer in practice and all studies were done in office. We will see if [facility] records. Otherwise, we will need to repeat some of those studies. Per pt. [facility] did EKG and cardiac enzymes and told it was negative. Also CBC was normal. CXR also normal. Gastroesop hageal reflux disease without esophagitis 779274287 K21.9 cont prilosec during day and add nexium samples at bedtime Dyspnea on exertion 6084 5006 R06.09 with dizziness and right eye blurred vision. We will try to get previous records from [facility] and see if cardiology workup available. recommend he find new cardiologi st. short term f/u in 2 weeks to check sxs. [id number] MD Richard Oshea (Adult Med) [address] [place] [address] 05/14/2019 08:28:54 05/15/2019 08:19:49 Atypical chest pain 180816768 R07.89 Improved. Gastroesop hageal reflux disease without esophagitis 361481449 K21.[address] scan, neg. Neg labs including H. pylori & celiac dz panel. Still poor appetite & sour stomach on bid PPI. Will try changing to omeprazole in AM, ranitidine in PM and PRN sucralfate before meals. Call in 2 weeks to see if improving. Otherwise, recommend GI referral, saw Dr. Hagan in past. [id number] MD Richard Quijano (Adult Med) [address] [place] [address] 01/19/2021 09:41:43 01/21/2021 12:30:05 Adult health examination [id number] Z00.01 Encouraged patient to eat well balanced meals, live active lifestyle and attend routine vision/den christina apts. Influenza vaccination declined 782223329 Z28.21 Gastroesop hageal reflux disease without esophagitis 501950842 K21.[address] scan, neg.Still poor appetite & sour stomach on bid PPI.recomm end GI referral in past but pt felt they did not have any answers Body mass index less than 20 264313985 Z68.1 diet advised, labs neg in past for celiac Fatigue 60330912 R53.83 labs needed Unintentio nal weight loss 101889607 R63.4 dwp labs needed, pt reports appetite is good Diverticul ar disease of colon 639507831 K57.30 needs f/u with GI but will start with CT, pt reports noise and rapid weight loss but no pain Generalize d anxiety disorder 04675882 F41.1 dwp buspar for anxiety qd but may take up to tid [id number] MD Richard Quijano (Adult Med) [address] [place] [address] 02/09/2021 14:45:09 02/13/2021 16:35:17 Generalized anxiety disorder 71447391 F41.1 did not do well on buspar, only took 3 or so, stopped; pt not sure he wants med at this time, wants to focus on his medical issues, referral also offered, pt not interested at this time Gastroesop hageal reflux disease without esophagitis 486953191 K21.[address] scan, neg. Still poor appetite & sour stomach on bid PPI. recommend GI referral in past but pt felt they did not have any answers has been on ppi 20 mg qd and not helping with the amount of nsaid he is taking for his pain, advised reducing nsaid use, will increase to 40 mg History of pericarditis 2372822811 73442 Z86.79 Cardio unsure of dx, is to follow up in 3 months Chest wall pain 46738398 6 R07.89 unsure of origin of pain, discomfort , few tender points, pt also has apt planned with rheum soon-next week? Body mass index less than 20 440149046 Z68.1 diet advised, labs neg in past for celiac cont to work on eating regular meals [id number] Vipin Luna MD [place] 14 IM [address] [facility] [address] [place] [address] 04/14/2021 11:01:57 04/15/2021 21:12:01 Administration of SARS-CoV-2 antigen vaccine 383478756 Z23 [id number] MD Richard Quijano (Adult Med) [address] [place] [address] 05/08/2021 14:49:56 05/09/2021 07:32:59 Generalized anxiety disorder 01959055 F41.1 did not do well on buspar, only took 3 or so, stopped; pt not sure he wants med at this time, wants to focus on his medical issues, referral also offered, pt not interested at this time Gastroesop hageal reflux disease without esophagitis 211995925 K21.[address] scan, neg. Still poor appetite & sour stomach on bid PPI. recommend GI referral in past but pt felt they did not have any answers has been on ppi 20 mg qd and not helping with the amount of nsaid he is taking for his pain, advised reducing nsaid use, will increase to 40 mg History of pericarditis 7388354985 17763 Z86.79 Cardio unsure of dx, is to follow up in 3 months Chronic pain syndrome 37 2966660 G89.4 labs to be done per rheum. 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 dwp not advised to be on longterm steroids, rheum will manage that pending labs Low back pain 848817032 M54.5 has been to ortho, PT, pain mgmt and now to rheum, no relief, only relief was from steroid pack use, will send rx Drug seeking behavior 44 8286198 Z76.5 advised pt that no rx of pain meds from this office, can refer to pain mgmt or other speciality and pt declines [id number] MD Richard Quijano (Adult Med) [address] [facility] [place] [address] 01/04/2022 12:16:35 01/05/2022 09:48:23 Influenza vaccination declined 912700070 Z28.21 Tic 223606237 F95.9 new onset of involuntar y head movements, several times a day, not observed in office during exam, dwp labs and will refer to neuro Adult heal th examination 566810263 Z00.01 Encouraged patient to eat well balanced meals, live active lifestyle and attend routine vision/den christina apts. Visual disturbance 95031 001 H53.9 advised to see eye for check up [id number] MD Richard Quijano (Adult Med) [address] [place] [address] 03/08/2022 11:57:51 03/09/2022 15:19:46 Administration of SARS-CoV-2 mRNA vaccine 4239799003 Z23 [id number] MD Richard Quijano (Adult Med) [address] [place] [address] 03/18/2023 10:01:52 03/21/2023 09:02:58 Adult health examination 563851376 Z00.01 Encouraged patient to eat well balanced meals, live active lifestyle and attend routine vision/den christina apts. Vitamin D deficiency 347 74016 E55.9 cont replacemen t Gastroesop hageal reflux disease without esophagitis 112324204 K21.[address] scan, neg. Still poor [...] mg Cyst of or al soft tissue 435593170 K09.8 smaller than pea sized hard cyst to left sublingual area, no discharge, no ulceration advised to try sour candy like lemon drops to increase salivary gland excretions [id number] MD Richard Cummins (Adult Med) [address] [place] [address] 05/07/2023 10:25:37 05/08/2023 13:12:34 Sialoadenitis 07094128 K11.20 nothing significan t at this time follow back if it gets worse [id number] MD Richard Quijano (Adult Med) [address] [place] [address] 08/13/2023 14:55:53 08/20/2023 16:04:37 Electrocardiogram abnormal 545445685 R94.31 will get holter started while he gets back into cardio, new referral sent, History of pericarditis 6189532923 81129 Z86.79 Cardio unsure of dx, is to follow up in 3 months, did not return, will refer to new cardiology group Generalize d anxiety disorder 22135472 F41.1 did not do well on buspar, only took 3 or so, stopped; pt not sure he wants med at this time, wants to focus on his medical issues, referral also offered, pt not interested at this time Dyspnea at rest 99983369 7 R06.00 cardiac related in past, dwp pft, pt wants to wait for now [id number] MD Richard Quijano (Adult Med) [address] [place] [address] 02/20/2024 11:16:32 02/21/2024 07:50:04 Dyspnea 359106647 R06.00 has not yet followed up with cardiology ,normal pft??c/o increased frequency of dyspnea episodeswi ll order chest CT Gastroesop hageal reflux disease without esophagitis 123209476 K21.[address] scan, neg. Still poor appetite & sour stomach on bid PPI. recommend GI referral in past but pt felt they did not have any answers has been on ppi 20 mg qd and not helping with the amount of nsaid he is taking for his pain, advised reducing nsaid use, will increase to 40 mg Generalize d anxiety disorder 12935191 F41.1 did not do well on buspar, only took 3 or so, stopped; pt not sure he wants med at this time, wants to focus on his medical issues, referral also offered, pt not interested at this time Depression screening 171 172860 Z13.31 depression screening positive-r epeat at followup- issues are mainly from anxiety per pt-not depression Health Concerns Section Related Observation LastModified by Organization Detai ls LastModified Time None Recorded Concern Status LastModified by Organization Details LastModified Time None Recorded Advance Directives Directive N: Payers Insurance Date Sequence Insurance Name Policy Number Policy Munoz Covered Member ID Munoz Member ID Guarantor Name 10/25/2024 1 [facility] - DOS ON OR AFTER 21 (MEDICAID REPLACEMENT - HMO) Marcello Rochester [id number] Marcello Rochester 06/01/2021 1 [facility] - DOS PRIOR TO 2021 (MEDICAID REPLACEMENT - HMO) Marcello Tigre [id number] Marcello Tigre 05/05/2021 [facility] - DOS PRIOR TO 2021 (MEDICAID REPLACEMENT - HMO) Marcello Tigre [id number] Marcello Tigre 02/02/2021 1 [place] WHEN MED[place]ARE OR MEDICARE REPLACEMENT PRIMARY) Marcello Rochester [id number] Marcello Tigre 02/02/2021 1 [facility] ([facility]) [id number] Marcello Rochester [id number] Marcello Rochester 05/05/2021 1 [place] [employer] [place] [employer] Marcello Rochester [id number] Marcello Landeros Notes Date Note Type Note Provider Name and Address Organization Details Recorded Time 03/18/2023 text/html here for annual exam,only concern is c/o gum issue- states its hardened under his tongue on the left side of his mouth. Dentist looked it and told him to talk to pcp Marlen Irvin APN, FNP-C Attn: Accounting, [address] [place], [place], [address] [place] [address], [facility] 03/19/2023 17:57:48 05/07/2023 text/html ROS as noted in the HPI Pt complaining of swelling in the floor of his mouth on the left side for 1 1/2 months. It does not swell when he eats. He feels the is slightly more full on that side. There is no pain or drainage Kike Doherty MD Attn: Accounting, [address] [place], [place], [address] [place] [address], [facility] 05/07/2023 10:41:54 08/13/2023 text/html ER follow up from chest wall pain, had abnormal ekg, finished two rounds of steroids;some gerd issueschest hurts more when he lays down or pushes back into his car seat drivingsaw cardiology in past but did not return for follow up as they did not figure out the problem Marlen Irvin APN, FNP-C Attn: Accounting, [address] [place], [place], [address] [place] [address], [facility] 08/13/2023 16:55:53 02/20/2024 text/html ROS as noted in the HPI Pt states he had a PFT approx 5 months ago which was normal ([facility])cardio had ordered CT but wasn't approved by insurance. Does not have f/u with cardio and did not get testing donestill c/o sob and believes it is increasing in frequency Marlen Irvin APN, FNP-C Attn: Accounting,[address] [place], [place], [address] [place] [address], [facility] 02/20/2024 11:49:18
--- OUTSIDE RECORDS SUMMARY | 2025-11-15 00:13 | XMS_ITS | Clinical Summary ---
Author Organization [facility] Address [address] [place] [address] Phone Care Team Providers Care Advanced Analytics Associate Name Role Phone Unavailable Primary Care Provider [...] Comments Blood Pressure 116/78 10/11/2020 2:38 PM HEAD LINEMAN Pulse 97 10/11/2020 2:38 PM HEAD LINEMAN Temperature 37.3 C (99.1 F) 10/11/2020 2:38 PM HEAD LINEMAN Respiratory Rate - - Oxygen Saturation - - Inhaled Oxygen Concentration - - Weight 63 kg (139 lb) 10/11/2020 2:38 PM HEAD LINEMAN Height 177.8 cm (5' 10) 10/11/2020 2:38 PM HEAD LINEMAN Body Mass Index 19.94 10/11/2020 2:38 PM HEAD LINEMAN Plan of Treatment Health Maintenance Due Date Last Done Comments DTAP/TDAP/TD VACCINES (1 - Tdap) 2008 HEPATITIS B VACCINES (1 of 3 - 19+ 3-dose series) 08/25 INFLUENZA VACCINE (#1) 2025 HPV VACCINES (No Doses Required) Completed
--- OUTSIDE RECORDS SUMMARY | 2025-11-15 00:13 | XMS_ITS | Encounter Summary ---
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 Sexual Orientation Choose not to disclose 2020 8:37 AM TILE CONDUIT LAYER documented as of this encounter Plan of Treatment Not on file documented as of this encounter Procedures Procedure Name Priority Date/Time Associated Diagnosis Comments SCAN - LABS 05/09/2021 documented in this encounter Results * SCAN - LABS (05/09/2021) us Provider Scanning Final Result documented in this encounter Visit Diagnoses Not on filedocumented in this encounter Care Teams Fiberglass Product Tester Relationship Specialty Start Date End Date Marlen Rico NP [address] [place] [address] PCP - General 01/19/21 02/25/25 Savi Coleman NP [address] [place] [address] PCP - General Internal Medicine 02/26/25 Cesar Perez MD [address] [place] [address] Referring Physician Ophthalmology 08/03/22 Kari Merrill NP [address] [facility] [address] [place] [address] Nurse Practitioner Family Medicine 02/26/25 documented as of this encounter
--- OUTSIDE RECORDS SUMMARY | 2025-11-15 00:13 | XMS_ITS | Encounter Summary ---
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 Sexual Orientation Choose not to disclose 2020 8:37 AM DRESS CAP MAKER documented as of this encounter Plan of Treatment Not on file documented as of this encounter Visit Diagnoses Not on filedocumented in this encounter Care Teams Crossbar Switch Adjuster Relationship Specialty Start Date End Date Marlen Rico NP [address] [place] [address] PCP - General 01/19/21 02/25/25 Savi Coleman NP [address] [facility] [address] [place] [address] PCP - General Internal Medicine 02/26/25 Cesar Perez MD [address] [place] [address] Referring Physician Ophthalmology 08/03/22 Kari Merrill NP [address] [facility] [address] [place] [address] Nurse Practitioner Family Medicine 02/26/25 documented as of this encounter
--- OUTSIDE RECORDS SUMMARY | 2025-11-15 00:13 | XMS_ITS | Encounter Summary ---
Author Organization [facility] Healthcare Address [address] [place] [address] Care Team Providers Care Music Arranger Name Role Phone Cesar Perez MD Unavailable [phone] Savi Coleman NP Primary Care Provider [phone] Kari Merrill NP Unavailable [phone] Encounter Details Date Type Department Care Team ([facility] Contact Info) Description 11/05/2025 Results Follow-Up [facility] Medical Group Primary Care at [address] [address] Savi Coleman NP [address] [place] [address] [address] [place] [address] Kathryn (yeast) culture Esophageal brush Mouth, Throat culture Throat Pharyngeal Social History Tobacco Use Types Packs/Day Years Used Date Smoking Tobacco: Never Smokeless Tobacco: Never Alcohol Use Standard Drinks/Week Comments Never 0 (1 standard drink = 0.6 oz pur e alcohol) PHQ-2 Answer Date Recorded PHQ-2 Total Score (If total score is 3 or more points, staff should administer the PHQ-9) 0 11/02/2025 AUDIT-C Answer Date Recorded Frequency of Alcohol Consumption Not on file 09/27/2025 Q2: How many drinks containi ng alcohol do you have on a typical day when you are drinking? Patient does not drink Frequency of Binge Drinking Not on file 01/2025 Personal Safety Answer Date Recorded Have you ever been in or are you currently in a harmful physical or emotional relationship or is someone making you feel afraid or unsafe? 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 Sexual Orientation Choose not to disclose 2020 8:37 AM CRAFT WORKER documented as of this encounter Plan of Treatment Not on file documented as of this encounter Visit Diagnoses Not on filedocumented in this encounter Care Teams Music Arranger Relationship Specialty Start Date End Date Savi Coleman NP [address] [place] [address] [place] [address] PCP - General Internal Medicine 02/26/25 Cesar Perez MD [address] [place] [address] Referring Physician Ophthalmology 08/03/22 Kari Merrill NP 2 [facility] [address] [address] Nurse Practitioner Family Medicine 02/26/25 documented as of this encounter
--- OUTSIDE RECORDS SUMMARY | 2025-11-15 00:13 | XMS_ITS | Clinical Summary ---
Author Organization [facility] Address [address] [place] [address] Care Team Providers Care Personal Attendant Name Role Phone Cesar Perez MD Unavailable [phone] Savi Coleman NP Primary Care Provider [phone] Kari Merrill NP Unavailable [phone] Allergies Active Allergy Reactions Criticality Noted Date Comments Amoxicillin Hives Medium 02/22/2025 Penicillins Unknown 08/27/2017 Medications inhalational spacing device (Aerochamber MV) spacer 1 Units 2 (two) times a day 1 each 3 08/16/20 25 026 Active mometasone-form oterol (DULERA 200) 200-5 mcg/actuation inhaler Inhale 2 puffs 2 (two) times a day Rinse mouth with water after use. Do not swallow. 1 each 08/18/20 25 026 Active tiotropium bromide (SPIRIVA RESPIMAT) 2.5 mcg/actuation inhaler Inhale 2 puffs daily 1 each 08/18/20 25 Active famotidine (PEPCID) 20 mg tabletIndicatio ns:Gastroesopha geal reflux disease without esophagitis Take 1 tablet (20 mg total) by mouth 2 (two) times a day as needed for heartburn 60 tablet 3 08/30/20 25 Active inhalational spacing device (Aerochamber MV) spacer 1 Units once for 1 dose 1 each 08/30/20 25 Active colchicine (COLCRYS) 0.6 mg tablet Take 1 tablet (0.6 mg total) by mouth daily 30 tablet 11 09/03/20 25 026 Active albuterol HFA (PROVENTIL HFA,VENTOLIN HFA,PROAIR HFA) 90 mcg/actuation inhaler Inhale 2 puffs every 6 (six) hours as needed for wheezing or shortness of breath 1 each 11 09/27/20 25 Active nystatin 100,000 unit/mL suspensionIndic ations:Mucocuta neous Candidiasis,ora l candidiasis Take 5 mL (500,000 Units total) by mouth 4 (four) times a day Swish in mouth and swallow. 280 mL 11/02/20 25 026 Active fluconazole (Diflucan) 150 mg tabletIndicatio ns:Thrush Take 1 tablet (150 mg total) by mouth daily Take one tab daily now and then repeat every 7 days if symptoms persist. Up to 4 doses. 1 tablet 4 11/04/20 25 Active predniSONE (DELTASONE) 20 mg tablet Take 2 tablets (40 mg) by mouth daily for 5 days 10 tablet 11/11/20 25 025 Active nystatin 100,000 unit/mL suspension Take 5 mL (500,000 Units total) by mouth 4 (four) times a day for 10 days Swish in mouth and swallow. 200 mL 10/12/20 25 025 fluconazole (DIFLUCAN) 150 mg tabletIndicatio ns:Thrush,Burni ng sensation of throat Take 1 tablet (150 mg total) by mouth daily Take one tab daily now and then repeat every 7 days if symptoms persist. Up to 4 doses. 2 tablet 11/02/20 25 025 Discontinued fluconazole (DIFLUCAN) 150 mg tabletIndicatio ns:Thrush,Burni ng sensation of throat Take 1 tablet (150 mg total) by mouth daily Take one tab daily now and then repeat every 7 days if symptoms persist. Up to 4 doses. 2 tablet 1 11/02/20 25 025 Discontinued(Al ternate therapy) fluconazole (Diflucan) 150 mg tabletIndicatio ns:Thrush Take 1 tablet (150 mg total) by mouth daily Take one tab daily now and then repeat every 7 days if symptoms persist. Up to 4 doses. 4 tablet 11/04/20 25 025 Discontinued(Re order) Active Problems Problem Noted Date Diagnosed Date Moderate persistent asthma without complication 06/07/2025 Assessment & Plan (09/28/2025 9:21 AM PLANTING SUPERVISOR): Continue Breztri two puffs twice daily with an aerochamber. We have discussed thrush and treatment. Albuterol 2 puffs every 4-6 hours as needed only, we have discussed indications for use - I sent an RX to his pharmacy today He does not have any significant peripheral eosinophilia Avoid triggers He does not have frequent exacerbations. We discussed vaccines. We have discussed signs and symptoms that would require earlier evaluation or change to his plan of care. Assessment & Plan (08/16/2025 2:59 PM CDT): He will start Breztri two puffs twice daily with an aerochamber. Albuterol 2 puffs every 4-6 hours as needed only, we have discussed indications for use He does not have any significant peripheral eosinophilia Avoid triggers We have discussed signs and symptoms that would require earlier evaluation or change to his plan of care. Assessment & Plan (06/07/2025 11:02 AM CDT): We have discussed the pathophysiology of asthma and the purpose of maintenance inhaled therapy. He will start Dulera 200-5 two puffs twice daily He does not have any significant peripheral eosinophilia Avoid triggers We have discussed signs and symptoms that would require earlier evaluation or change to his plan of care. 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 No concerns at this time. Chronic idiopathic pericarditis 02/26/2025 Assessment & Plan (02/26/2025 5:19 PM CDT): Abnormal stress ECG 02/12/2025 Overview (02/26/2025): Resting ECG: Normal sinus rhythm at 98 beats per minute, normal axis, LVH with strain. Post EC mm or more horizontal inferior/lateral ST depression. Arrhythmia: No arrhythmias seen. Exercise Capacity: Good exercise capacity. Cardiac Symptoms With Stress: Symptoms with stress were fatigue, leg pain and general appearance. Target HR Achieved: Target heart rate was achieved. Reason For Termination: Fatigue. THR achieved. Leg fatigue. BP Response: Blood pressure response is appropriate. Assessment & Plan (02/26/2025 5:19 PM CDT): Catheterization as follows 1. Left main: Bifurcates into LAD and LCX. There was no angiographic significant disease 2. LAD: Normal anatomic course, gives to diagonal branches. There was no angiographic significant disease. 3. LCX: Normal anatomic course, gives to OM branches. There was no angiographic significant disease. 4. RCA: Normal anatomic course, gives to PDA and PLV branches. There was no angiographic significant disease. Shortness of breath 09/04/2023 Assessment & Plan (02/26/2025 5:19 PM CDT): High myopia, both eyes 08/03/2022 Gastroesophageal reflux disease without esophagi tis 02/09/2021 Assessment & Plan (09/28/2025 9:21 AM PLANTING SUPERVISOR): Continue lansoprazole 30 mg daily Continue famotidine 40mg daily No eating 2-3 hours before bed Avoid trigger foods Elevate head of bed while sleeping Avoid tight clothing. He is aware of the relationship between uncontrolled GERD and asthma exacerbation. Assessment & Plan (08/30/2025 2:13 PM CDT): Orders: famotidine (PEPCID) 20 mg tablet; Take 1 tablet (20 mg total) by mouth 2 (two) times a day as needed for heartburn Assessment & Plan (08/16/2025 3:00 PM CDT): Restart lansoprazole 30 mg daily No eating 2-3 hours before bed Avoid trigger foods Elevate head of bed while sleeping Avoid tight clothing. He is aware of the relationship between uncontrolled GERD and asthma exacerbation. Assessment & Plan (06/07/2025 11:04 AM CDT): We have discussed the relationship between uncontrolled GERD and respiratory symptoms We have also discussed the dosage in the importance of daily dosing with PPI. I will actually start him on famotidine 40 mg once daily in the evening and reassess if this has controlled his symptoms. No eating 2-3 hours before bed Avoid trigger foods Elevate head of bed while sleeping Assessment & Plan (02/26/2025 5:19 PM CDT): Diverticular disease of colon 01/18/2021 Assessment & Plan (02/26/2025 5:19 PM CDT): No current symptoms. Generalized anxiety disorder 01/18/2021 Assessment & Plan (02/26/2025 5:19 PM CDT): Denies any current issues with anxiety. 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 Rogers. Resolved Problems Problem Noted Date Diagnosed Date Resolved Date Acquired arteriovenous malformation 02/26/2025 02/26/2025 Overview (02/26/2025): small intestine Chest pain 09/04/2023 02/26/2025 PFO (patent foramen ovale) 09/04/2023 1 Assessment & Plan (02/26/2025 5:19 PM CDT): PFO is subjective. Was not seen on most recent echocardiogram. Patient says that this was seen on previous imaging. Burning sensation of throat 07/02/2023 02/26/2025 Assessment & Plan (07/02/2023 2:14 PM CDT): [place] with ppi and pain possible egd Involuntary movements 03/06/20222024 Acute idiopathic pericarditis 02/03/2021 02/26/2025 Fatigue 01/18/2021 02/26/2025 Unintentional weight loss 01/18/2021 Hip pain, bilateral 01/16/2021 02/27/20 25 Lumbar facet joint syndrome 12/01/2020 02/26/2025 Sacroiliitis 12/01/2020 02/26/2025 Pain in joint, multiple sites 12/01/2020 02/26/2025 Anemia, iron deficiency 02/15/2015 04/0 02/2025 Gastrointestinal hemorrhage 11/05/2014 02/26/2025 Encounters Date Type Department Care Team Description 11/11/2025 Telephone [facility] Pulmonary at [address] [place] [address] Chiquita Claros CMA 11/05/2025 Results Follow-Up [facility] Primary Care at [address] [phone] Savi Coleman, ANKUR Kathryn (yeast) culture Esophageal brush Mouth, Throat culture Throat Pharyngeal 11/04/2025 Telephone [place] [employer] at [address] [phone] Kari Merrill NP 11/03/2025 Telephone [facility] Primary Care at [address] [phone] Savi Coleman NP Authorization/Certif ication 11/02/2025 4:11 PM PLANTING SUPERVISOR - 11/02/2025 11:59 PM PLANTING SUPERVISOR Hospital Encounter [address] [address] Thrush; Burning sensation of throat Discharge Disposition: Discharge to home or self care 11/02/2025 2:30 PM PLANTING SUPERVISOR Office Visit [facility] Primary Care at [address] [phone] Savi Coleman, ANKUR BMI less than 19,adult (Primary Dx); Thrush; Burning sensation of throat 10/12/2025 Orders Only [facility] Primary Care at [address] [phone] Tiffanie Nogueira NP 10/12/2025 Telephone [facility] Primary Care at [address] [phone] Savi Coleman NP Symptom Based Call 10/12/2025 Telephone [facility] Pulmonary at [address] [phone] Loree Hi LPN Thrush 09/27/2025 2:00 PM PLANTING SUPERVISOR Office Visit [facility] Pulmonary at [address] [phone] Sabina Sofia NP Moderate persistent asthma without complication (Primary Dx); Gastroesophageal reflux disease without esophagitis 09/03/2025 1:15 PM CDT Office Visit [place] [facility] at [address] [phone] Kari Merrill, ANKUR Chest pain, unspecified type (Primary Dx) 08/30/2025 1:30 PM CDT Office Visit [facility] Primary Care at [address] [phone] Savi Coleman NP BMI 20.0-20.9, adult (Primary Dx); Gastroesophageal reflux disease without esophagitis; Thrush; Screening for iron deficiency anemia; Screening, lipid; Screening for thyroid disorder; Encounter for screening examination for impaired glucose regulation and diabetes mellitus; Moderate persistent asthma without complication 08/17/2025 Telephone [facility] Pulmonary at [address] [place] [phone] Ayla Xavier LPN inhaler concern 08/16/2025 2:30 PM CDT Office Visit [facility] Pulmonary at [address] [place] [phone] Sabina Sofia NP Moderate persistent asthma without complication (Primary Dx); Gastroesophageal reflux disease without esophagitis from Last 3 Months Immunizations Immunization Administration Dates Next Due Influenza, Unspecified 11/02/2025(Deferr ed: Patient Refused),11/25/2024(Deferred: Patient Refused),10/15/2024(Deferred: Patient Refused),11/25/2023(Deferred: Patient Refused),02/15/2015,06/29/2014 Surgical History Surgery Date Site/Laterality Comments LAPAROSCOPIC BOWEL RESECTION TONSILLECTOMY CARDIAC CATHETERIZATION 02/22/2025 N/A Procedure: LEFT HEART CATHETERIZATION WITH CORONARY ANGIOGRAPHY AND WITH OR WITHOUT LEFT VENTRICULOGRAM 30238; Surgeon: Jack Menjivar MD; Location: [facility] CARDIAC [employer] EXAMINER; Service: Cardiovascular; Laterality: N/A; Medical History Medical History Date Comments Upper GI bleed GERD (gastroesophageal reflux disease) High myopia, both eyes Hip pain, bilateral 01/16/2021 Anemia, iron deficiency 02/15/2015 Chest pain 09/04/2023 Gastrointestinal hemorrhage 11/05/2014 Acquired arteriovenous malformation 02/26/2025 small intestine PFO (patent foramen ovale) 09/04/2023 Family History Medical History Relation Name Comments Stroke Father Relation Name Status Comments Father Alive Mother Alive Social History Tobacco Use Types Packs/Day Years Used Date Smoking Tobacco: Never Smokeless Tobacco: Never Tobacco Cessation:Counseling Given: Not Answered Alcohol Use Standard Drinks/Week Comments Never 0 [...] CDT Gender Identity Male 02/02/2021 8:37 AM PLANTING SUPERVISOR Sexual Orientation Choose not to disclose 2020 8:37 AM PLANTING SUPERVISOR Last Filed Vital Signs Vital Sign Reading Time Taken Comments Blood Pressure 124/82 11/02/2025 3:21 PM PLANTING SUPERVISOR Pulse 106 11/02/2025 3:21 PM PLANTING SUPERVISOR Temperature 36.3 C (97.4 F) 11/02/2025 3:21 PM PLANTING SUPERVISOR Respiratory Rate 16 11/02/2025 3:21 PM PLANTING SUPERVISOR Oxygen Saturation 97% 11/02/2025 3:21 PM PLANTING SUPERVISOR Inhaled Oxygen Concentration - - Weight 64 kg (141 lb) 11/02/2025 3:21 PM PLANTING SUPERVISOR Height 180.3 cm (5' 11) 11/02/2025 3:21 PM PLANTING SUPERVISOR Body Mass Index 19.67 11/02/2025 3:21 PM PLANTING SUPERVISOR Plan of Treatment Health Maintenance Due Date Last Done Comments DTaP/Tdap/Td Vaccine (1 - Tdap) 02/26/2026 Postponed from 2000 (Patient declined, but will receive in the future) Regular Well Visit/Exam 18-64 02/26/2026 02/26/2025 Varicella Vaccines (1 of 2 - 13+ 2-dose series) 03/02/2026 Postponed from 2002 (Patient declined, but will receive in the future) Influenza Vaccine (#1) 2026 02/15/2015, 2013 Postponed from 07/26/2025 (Patient declined, but will receive in the future) Pneumococcal vaccine <65 (1 of 2 - PCV) 08/15/2026 Postponed from 2008 (Patient declined, but will receive in the future) Covid-19 Vaccine ( - season) 2026 03/08/2022, 05/12/2021, 04/14/2021 Postponed from 07/26/2025 (Patient declined, but will receive in the future) HPV Vaccines (1 - 3-dose SCDM series) 08/30/2026 Postponed from 2016 (Patient declined, but will receive in the future) Depression Screening 11/02/2026 11/02/2025, 08/30/2025, 02/26/2025, Additional history exists Hepatitis B Screening Discontinued Hepatitis C Screening Discontinued Procedures Procedure Name Priority Date/Time Associated Diagnosis Comments THROAT CULTURE Routine 11/02/2025 3:29 PM PLANTING SUPERVISOR Thrush Burning sensation of throat KATHRYN (YEAST) CULTURE Routine 11/02/2025 3:29 PM PLANTING SUPERVISOR Thrush Burning sensation of throat from Last 3 Months Results * (ABNORMAL) Kathryn (yeast) culture Esophageal brush Mouth (11/02/2025 3:29 PM PLANTING SUPERVISOR) Report Final Report: Few Kathryn albicans (.) Comment:Testing performed by : [facility], [address] [facility], [place]., [address] Organism KATHRYN ALBICANS ANGÉLICA GUERRA Esophageal brush (Mouth) 11/02/2025 3:29 PM PLANTING SUPERVISOR 11/02/2025 9:45 PM PLANTING SUPERVISOR Narrative ANGÉLICA - 11/08/2025 8:30 AM PLANTING SUPERVISOR Interpretation data: This culture is NOT intended for the detection of filamentous fungi, endemic mycosis, or Cryptococcus. If detected, yeast will be reported and identified. Routine susceptibility is not performed, but if required, please contact the Microbiology Laboratory at . Savi R. Therien PUMP SERVICER HELPER LAB MICROBIOLOGY - GENERAL ORDERABLES Final Result ANGÉLICA [address] [facility] [place] [address] * Throat culture Throat Pharyngeal (11/02/2025 3:29 PM PLANTING SUPERVISOR) Report Final Report: No growth of pathogens. Comment:Testing performed by : [facility], [address] [facility], [place]., [address] Throat (Pharyngeal) 11/02/2025 3:29 PM PLANTING SUPERVISOR 11/02/2025 9:45 PM PLANTING SUPERVISOR Narrative ANGÉLICA GUERRA - 11/03/2025 5:24 PM PLANTING SUPERVISOR Testing performed by [facility] Microbiology Laboratory ([phone]). Savi Coleman PUMP SERVICER HELPER LAB MICROBIOLOGY - GENERAL ORDERABLES Final Result Performing Organization Address City/[facility] Co de Phone Number ANGÉLICA [address] [facility] [place] [place] [address] from Last 3 Months Insurance [facility] Advance Directives For more information, please contact: [phone] * Full Code (Latest Code Status on File) Date Activated Date Inactivated Comments 02/22/2025 10:18 AM 02/22/2025 4:19 PM Care Teams Personal Attendant Relationship Specialty Start Date End Date Savi Coleman NP [address] [place] [address] PCP - General Internal Medicine 02/26/25 Cesar Perez MD [address] [place] [address] Referring Physician Ophthalmology 08/03/22 Kari Merrill NP [address] [place] [address] DR METZGER [address] [place] [address] Nurse Practitioner Family Medicine 02/26/25
--- OUTSIDE RECORDS SUMMARY | 2025-11-15 00:13 | XMS_ITS | Clinical Summary ---
Author Organization [facility] Address [address] [place] [address] Care Team Providers Care Concert Promoter Name Role Phone Marlen Rico APRN-RANGE MOUNTER Primary Care Provider [phone] Source Comments [facility],non-owned Affiliates and Associated Physician Practices is amultiple site organization consisting of ambulatory clinics and hospital sitesin [place], [place], [place] and [place]. This disclosure is being madepursuant to the Care Everywhere program and may not contain all information available regarding this patient. Last updated 18.[facility] Allergies Active Allergy Reactions Criticality Noted Date Comments Amoxicillin Unknown 04/27/2019 Penicillins Unknown 08/27/2017 Medications * Be aware that medications may not be up to date on this document. Alwaysverify current medications with the patient. 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 Gender Identity Not on file Sexual Orientation Not on file Last Filed Vital Signs Vital Sign Reading Time Taken Comments Blood Pressure 122/87 04/27/2019 8:39 PM CDT Pulse 84 04/27/2019 8:39 PM CDT Temperature 37.2 C (99 F) 04/27/2019 8:39 PM CDT Respiratory Rate 18 04/27/2019 8:39 PM CDT Oxygen Saturation 99% 04/27/2019 8:39 PM CDT Inhaled Oxygen Concentration - - Weight 63.5 kg (140 lb) 04/27/2019 3:59 PM CDT Height 180.3 cm (5' 11) 04/27/2019 3:59 PM CDT Body Mass Index 19.53 04/27/2019 3:59 PM CDT Plan of Treatment Health Maintenance Due Date Last Done Comments HIV SCREENING 2004 HEPATITIS C SCREENING 09/02/2007 DTAP/TDAP/TD VACCINES (1 - Tdap) 2008 HEPATITIS B VACCINE (1 of 3 - 19+ 3-dose series) 2008 HPV VACCINE (1 - 3-dose SCDM series) 2016 DEPRESSION SCREENING 11/25/2024 COVID-19 VACCINE (4 - 2024-2 6 season) 2025 03/08/2022, 05/12/2021, 04/14/2021 INFLUENZA VACCINE (#1) 2025 ZOSTER VACCINE (1 of 2) 2039 HIB VACCINE Aged Out No longer eligi ble based on patient's age to complete this topic MENINGOCOCCAL (Group B) VACCINE SHARED DECISION-MAKING Aged Out No longer eligible based on patient's age to complete this topic MENINGOCOCCAL GROUPS A/C/Y/W VACCINE Aged Out No longer eligible b ased on patient's age to complete this topic PNEUMOCOCCAL VACCINE Aged Out No long er eligible based on patient's age to complete this topic Insurance [facility] Care Teams Concert Promoter Relationship Specialty Start Date End Date Trisha, HATTIE Gee-RANGE MOUNTER [address] [place] [address] PCP - General Nurse Practitioner Family 04/07/24
[2025-11-15 00:22] LABS: Alanine Aminotransferase 28 U/L (6-50); Albumin Level 4.9 g/dL (3.5-5.1); Alkaline Phosphatase 78 U/L (38-126); Anion Gap 10 mmol/L (4-12); Aspartate Amino Transferase 20 U/L (17-59); Bilirubin,Total 0.6 mg/dL (0.2-1.3); Blood Urea Nitrogen 14 mg/dL (9-20); Calcium 10.7 mg/dL (8.4-10.2); Carbon Dioxide 25 mmol/L (22-30); Chloride 102 mmol/L (98-107); Estimated CRCL calculation 85 ml/min; Estimated Glomerular Filt Rate > 60; Glucose 149 mg/dL (65-110); Potassium 4.0 mmol/L (3.4-5.0); Sodium 137 mmol/L (137-145); Total Protein 8.0 g/dL (6.3-8.2)
[2025-11-15] MEDS: MAGNESIUM SULF 2 GM/WATER 50ML 2 GM/50 ML BAG IVPB (00:24)
[2025-11-15 00:27] LABS: INR 1.0; Partial Thromboplastin Time 24.5 Seconds (22.3-36.8); Prothrombin Time 13.3 Seconds (11.1-14.7)
[2025-11-15 00:47] LABS: Influenza A QL RT-PCR Negative (Negative); Influenza B QL RT-PCR Negative (Negative); RSV RNA, RT-PCR Negative (Negative); SARS-CoV-2 RNA PCR Negative (Negative)
[2025-11-15 02:15] VITALS: BP 139/98; PULSE 102; RESP 18; TEMP 36.4; O2SAT 100
== END 2025-11-15 02:46 | disposition home or self-care (01) ==
PROVIDERS: Emergency Provider Physician Assistant; PCP Nurse Practitioner
DX: J45.901 Unspecified asthma with (acute) exacerbation (principal); Z20.822 Contact with and (suspected) exposure to COVID-19
CPT/HCPCS: 36415; 71046; 80053; 85025; 85610; 85730; 87637; 93005; 96365; 96375; 99284; J2919; J3475